=== PATIENT | female | born 1980 | race Caucasian/White ===

== ENCOUNTER → 2020-12-15 13:20 | Outpatient (BNVA) | payer OTHER, SELFPAY | PROVIDERS: PCP Internal Medicine; Visit Provider Urology ==

== ENCOUNTER 2021-03-01 11:47 | Emergency (ER) | payer OTHER, SELFPAY ==
--- NOTE | ~2021-03-01 | CT_ITS ---
EXAMINATION: CT ABDOMEN AND PELVIS WITHOUT CONTRAST CLINICAL INFORMATION: Bilateral flank pain. COMPARISON: CT abdomen pelvis 03/18/20192018. Renal ultrasound 12/18/2018 TECHNIQUE: Multidetector volumetric imaging was performed from the superior aspect of the liver through the pubic symphysis. Sagittal and coronal reformatted images were obtained on the technologist's workstation. This CT examination was performed using dose optimization techniques as appropriate, variously including the following: *Automated exposure control *Adjustment of mA and/or kV according to patient size (this includes techniques or standardized protocols for targeted exams where dose is matched to indication/reason for exam; i.e. extremities or head) *Use of iterative reconstruction technique DLP: 324 mGy-cm FINDINGS: LUNG BASES: The visualized lung bases are unremarkable. LIVER, GALLBLADDER, AND BILIARY TREE: The liver is normal in size, shape, and attenuation. No focal hepatic lesion or biliary ductal dilatation is present. The gallbladder is unremarkable with no evidence of radiopaque gallstones, gallbladder wall thickening, or obvious pericholecystic inflammatory changes. PANCREAS: Unremarkable. SPLEEN: Unremarkable. ADRENAL GLANDS: Unremarkable. KIDNEYS AND URETERS: Nonobstructive 1 to 2 mm size stone in the upper pole of left kidney. There is no calculus in the right kidney. There is no ureteral stone. No hydronephrosis. There are small bilateral calcified phleboliths in the pelvis. BLADDER: Unremarkable. GASTROINTESTINAL TRACT: The small and large bowel are unremarkable. The appendix is normal. ABDOMINAL WALL: No significant hernia is appreciated. LYMPH NODES: Normal. VASCULAR: Unremarkable. PELVIC VISCERA: Unremarkable. OSSEOUS STRUCTURES: Unremarkable. CT/CT abdomen pelvis wo con IMPRESSION: 1 to 2 mm size stone in the left kidney. No stone in the right kidney. No hydronephrosis. No ureteral calculi. Fleischner guidelines were followed.
[2021-03-01 12:50] VITALS: BP 120/79; PULSE 78; RESP 18; TEMP 36.8; O2SAT 98; BMI 21.7
[2021-03-01 13:14] LABS: Appearance Urine HAZY; Color Urine YELLOW; Glucose Urine UA NEG (NEG); Leukocyte Esterase Urine NEG (NEG); Nitrite Urine POS (NEG); PH 6.5 (5.0-8.0); UACC Culture Trigger YES; UPreg QC Valid YES; Urine Blood NEG (NEG); Urine Ketones NEG (NEG); Urine Pregnancy NEGATIVE (NEGATIVE); Urine Protein NEG (NEG-TRACE)
[2021-03-01 13:22] LABS: Bacteria Urine 4+ /LPF; Mucus Urine 1+ /LPF; RBC Urine 0 /HPF (0); Squamous Epithelial Cell Urine 1+ /LPF
[2021-03-01 13:55] LABS: MANUAL DIFF FLAG NO
[2021-03-01 13:57] LABS: Basophils Percent Auto 0.4 % (0-2); Eosinophils Absolute Auto 0.1 X10*3/uL (0.0-0.4); Eosinophils Percent Auto 1.2 % (0-4); Hematocrit 40.8 % (37.0-47.0); Hemoglobin 13.8 g/dl (12.0-16.0); Imm Gran Abs Auto 0.01 X10*3/uL (0.00-0.03); Imm Gran Pct Auto 0.1 % (0.0-0.4); Lymphocytes Absolute Auto 1.6 X10*3/uL (1.2-4.9); Lymphocytes Percent Auto 24.4 % (20-40); Mean Corpuscular HGB Conc 33.8 g/dl (31.0-35.0); Mean Corpuscular Hemoglobin 32.2 pg (27.0-33.0); Mean Corpuscular Volume 95.3 fL (80.0-98.0); Mean Platelet Volume 9.8 fL (9.4-12.3); Monocytes Absolute Auto 0.4 X10*3/uL (0.1-1.2); Monocytes Percent Auto 5.2 % (2-11); Neutrophils Absolute Auto 4.6 x10*3/uL (2.0-8.3); Neutrophils Percent Auto 68.7 % (45-73); Platelet Count 237 X10*3/uL (160-400); Red Blood Count 4.28 X10*6/uL (4.20-5.50); Red Cell Distribution Width 11.8 % (11.0-16.0); White Blood Count 6.7 X10*3/uL (4.8-10.8)
[2021-03-01 14:18] LABS: Alanine Aminotransferase 19 U/L (0-31); Albumin Level 4.3 g/dL (3.5-5.0); Alkaline Phosphatase 42 U/L (39-117); Anion Gap 9 (12-20); Aspartate Amino Transferase 19 U/L (5-31); Bilirubin Total 0.2 mg/dL (0.0-1.0); Blood Urea Nitrogen 13 mg/dL (9-16); Calcium 9.3 mg/dL (8.4-10.2); Carbon Dioxide 29 mmol/L (22-29); Chloride 105 mmol/L (96-108); Creatinine Clr Calc Pharmacy 71.4; Estimated Glomerular Filt Rate > 60; Glucose Random 105 mg/dL (60-115); Potassium 4.3 mmol/L (3.3-5.1); Sodium 139 mmol/L (135-145)
--- NOTE | 2021-03-01 18:59 | ED.FEMALEGU ---
HPI - Female Genitourinary General Chief complaint: Urogenital-Female Stated complaint: pain with urination,hematuria Time Seen by Provider: 03/01/21 18:34 Source: patient Mode of arrival: ambulatory Limitations: no limitations History of Present Illness HPI Narrative: 40-year-old female who presents emergency department for evaluation of bilateral chest pain x1 week. The patient states that she has an intermittent pain in her lower anterior rib area bilaterally for 1 week. She states that the pain is a soreness which is 8/10 at its worst. She did have some bloody urine and was concerned that maybe she had a kidney stone. She states that she had a kidney stone in the past which required laser surgery (2017) and she believes that her pain was similar to her kidney stone pain in the past. She denied fever, chills, shortness of breath, dyspnea exertion, or cough. She denied frequency, urgency or dysuria. She states that she contacted her urologist, Dr. Biggs who advised her to go to the emergency department for evaluation of possible CT scan of the abdomen pelvis. Related Data Allergies Allergy/AdvReac Type Severity Reaction Status Date / Time amoxicillin [AMOXICILLIN] Allergy Unknown HIVES Verified 12/15/20 13:32 penicillin V Allergy Unknown hives Verified 12/15/20 13:32 Penicillins [PENICILLINS] Allergy Unknown HIVES Verified 12/15/20 13:32 sulfamethoxazole Allergy Unknown NAUSEA & Verified 12/15/20 13:32 [From BACTRIM] VOMITING trimethoprim [From BACTRIM] Allergy Unknown NAUSEA & Verified 12/15/20 13:32 VOMITING Sulfa (Sulfonamide AdvReac Unknown vomiting Verified 12/15/20 13:32 Antibiotics) Review of Systems Review of Systems: Yes all other systems are reviewed and are negative [facility] Past Medical History [facility] Narrative: Past medical history: Kidney stones requiring laser surgery 2017. Past surgical history: None. Social history: Patient denies tobacco use but she does vape nicotine products. She does drink alcohol and states she drank a significant amount of alcohol over the holiday. She denies drug use. Medical History (Updated 03/01/21 @ 20:48 by Diogenes House MD) Kidney stones Social History Social History Advance Directives: No Advance Directives Information Provided: Yes Patient : No Physical Exam Vital Signs: Vital Signs: Last Vital Signs Temp 98 F 03/01/21 19:09 Pulse 76 03/01/21 19:09 Resp 16 03/01/21 19:09 BP 122/76 03/01/21 19:09 Pulse Ox 99 03/01/21 19:09 BMI result Body Mass Index 21.7 Const: General: cooperative and no acute distress Orientation/consciousness: oriented to person and oriented to place Limitations: no limitations HENMT: Head: Yes normal to inspection, Yes normocephalic and Yes atraumatic Ears: external ears normal General nose exam: Normal external nose present Face and sinus: Yes normal facial exam Mouth: Normal oral and palatal mucosa present Throat: Yes posterior oropharynx normal Eyes: General: appearance normal, both eyes and all related structures Pupils: Equal, round and reactive pupils present Neck: Neck: Yes normal visual inspection, Yes no lymphadenopathy, Yes trachea midline and Yes supple Chest: Chest palpation & inspection: normal inspection of the chest and normal palpation of entire chest wall Resp: Effort & Inspection: normal respiratory effort and able to speak in complete sentences Auscultation: clear to auscultation bilaterally Cardio: Rate: regular rate Rhythm: regular rhythm Heart sounds: S1 normal heart sound present, S2 normal heart sound present and no murmurs GI: Inspection: Yes normal to inspection Palpation (GI): Soft to palpation, nontender and no guarding Auscultation: normal bowel sounds : General: Yes no CVA tenderness Back/Spine/Pelvis: Back: no CVA tenderness Skin: General skin exam: no rashes or lesions noted Neuro: General: oriented to person and oriented to place Cranial nerves: Yes CN's II-XII intact bilaterally and Yes Equal, round and reactive pupils present Cognition (Neuro): normal cognition Motor exam (neuro): 5/5 motor strength present throughout Extrem: General: Yes normal to inspection Psych: Appearance: grossly normal Speech and movement: Normal speech and movement present Affect: normal affect Attitude: cooperative Thought process: Normal thought process present Thought content: Normal thought content present Course Course Course Narrative: 40-year-old female who presents emergency department for evaluation of bilateral lower anterior chest pain x1 week with hematuria. Patient states that the pain is similar to her kidney stone pain in the past. Vital signs were normal. Physical examination was unremarkable. Laboratory evaluation included CBC, CMP which were unremarkable. Urine test was negative. Urinalysis revealed positive nitrates. Microscopic revealed 0 RBCs and 4 WBCs, 1+ squamous epithelial cells, 1+ bacteria. At this time I do not have a clear etiology for the patient's symptoms. I will get a CT scan of the patient's abdomen/pelvis without contrast to evaluate for kidney stones. 2043: CT scan of the patient's abdomen and pelvis without IV contrast revealed the following:?Nonobstructive 1 to 2 mm size stone in the upper pole of left kidney. There is no calculus in the right kidney. There is no ureteral stone. No hydronephrosis. There are small bilateral calcified phleboliths in the pelvis. This does not explain the patient's pain. I did discuss this with the patient. The patient was advised to take Tylenol and ibuprofen and return if her symptoms get worse or she develops any new symptoms that are concerning to her. MDM - Female Genitourinary Lab Data Result diagrams: 03/01/21 13:50 03/01/21 13:50 Labs: Lab Results 03/01/21 03/01/21 03/01/21 Range/Units 12:59 12:59 13:50 WBC 6.7 (4.8-10.8) X10*3/uL RBC 4.28 (4.20-5.50) X10*6/uL Hgb 13.8 (12.0-16.0) g/dl Hct 40.8 (37.0-47.0) % MCV 95.3 (80.0-98.0) fL MCH 32.2 (27.0-33.0) pg MCHC 33.8 (31.0-35.0) g/dl RDW 11.8 (11.0-16.0) % Plt Count 237 (160-400) X10*3/uL MPV 9.8 (9.4-12.3) fL Immature Gran % (Auto) 0.1 (0.0-0.4) % Neut % (Auto) 68.7 (45-73) % Lymph % (Auto) 24.4 (20-40) % [place] % (Auto) 5.2 (2-11) % Eos % (Auto) 1.2 (0-4) % Baso % (Auto) 0.4 (0-2) % Lymph # (Auto) 1.6 (1.2-4.9) X10*3/uL [place] # (Auto) 0.4 (0.1-1.2) X10*3/uL Eos # (Auto) 0.1 (0.0-0.4) X10*3/uL Baso # (Auto) 0.0 (0.0-0.2) X10*3/uL Abs Immat Gran (auto) 0.01 (0.00-0.03) X10*3/uL Absolute Neuts (auto) 4.6 (2.0-8.3) x10*3/uL Absolute Nucleated RBC 0.000 (0.0-0.012) X10*3/uL Nucleated RBC % (auto) 0.0 (0.0-0.2) /100WBC Sodium (135-145) mmol/L Potassium (3.3-5.1) mmol/L Chloride (96-108) mmol/L Carbon Dioxide (22-29) mmol/L Anion Gap (12-20) BUN (9-16) mg/dL Creatinine (0.5-1.4) mg/dL Estim Creat Clear Calc Estimated GFR Random Glucose (60-115) mg/dL Calcium (8.4-10.2) mg/dL Total Bilirubin (0.0-1.0) mg/dL AST (5-31) U/L ALT (0-31) U/L Alkaline Phosphatase (39-117) U/L Total Protein (6.5-8.0) g/dL Albumin (3.5-5.0) g/dL Urine Color YELLOW Urine Appearance HAZY Urine pH 6.5 (5.0-8.0) Ur Specific Diana 1.020 (1.005-1.025) Urine Protein NEG (NEG-TRACE) MG/DL Urine Glucose (UA) NEG (NEG) MG/DL Urine Ketones NEG (NEG) MG/DL Urine Blood NEG (NEG) Urine Nitrite POS H (NEG) Ur Leukocyte Esterase NEG (NEG) Urine RBC 0 (0) /HPF Urine WBC 1-4 (0-4) /HPF Ur Squamous Epith Cells 1+ /LPF Urine Bacteria 4+ /LPF Urine Mucus 1+ /LPF Urine Test NEGATIVE (NEGATIVE) 03/01/21 Range/Units 13:50 WBC (4.8-10.8) X10*3/uL RBC (4.20-5.50) X10*6/uL Hgb (12.0-16.0) g/dl Hct (37.0-47.0) % MCV (80.0-98.0) fL MCH (27.0-33.0) pg MCHC (31.0-35.0) g/dl RDW (11.0-16.0) % Plt Count (160-400) X10*3/uL MPV (9.4-12.3) fL Immature Gran % (Auto) (0.0-0.4) % Neut % (Auto) (45-73) % Lymph % (Auto) (20-40) % [place] % (Auto) (2-11) % Eos % (Auto) (0-4) % Baso % (Auto) (0-2) % Lymph # (Auto) (1.2-4.9) X10*3/uL [place] # (Auto) (0.1-1.2) X10*3/uL Eos # (Auto) (0.0-0.4) X10*3/uL Baso # (Auto) (0.0-0.2) X10*3/uL Abs Immat Gran (auto) (0.00-0.03) X10*3/uL Absolute Neuts (auto) (2.0-8.3) x10*3/uL Absolute Nucleated RBC (0.0-0.012) X10*3/uL Nucleated RBC % (auto) (0.0-0.2) /100WBC Sodium 139 (135-145) mmol/L Potassium 4.3 (3.3-5.1) mmol/L Chloride 105 (96-108) mmol/L Carbon Dioxide 29 (22-29) mmol/L Anion Gap 9 L (12-20) BUN 13 (9-16) mg/dL Creatinine 0.79 (0.5-1.4) mg/dL Estim Creat Clear Calc 71.4 Estimated GFR > 60 Random Glucose 105 (60-115) mg/dL Calcium 9.3 (8.4-10.2) mg/dL Total Bilirubin 0.2 (0.0-1.0) mg/dL AST 19 (5-31) U/L ALT 19 (0-31) U/L Alkaline Phosphatase 42 (39-117) U/L Total Protein 7.0 (6.5-8.0) g/dL Albumin 4.3 (3.5-5.0) g/dL Urine Color Urine Appearance Urine pH (5.0-8.0) Ur Specific Diana (1.005-1.025) Urine Protein (NEG-TRACE) MG/DL Urine Glucose (UA) (NEG) MG/DL Urine Ketones (NEG) MG/DL Urine Blood (NEG) Urine Nitrite (NEG) Ur Leukocyte Esterase (NEG) Urine RBC (0) /HPF Urine WBC (0-4) /HPF Ur Squamous Epith Cells /LPF Urine Bacteria /LPF Urine Mucus /LPF Urine Test (NEGATIVE) Discharge Plan Discharge Clinical Impression: Kidney stone on right side Chest pain Qualifiers: Chest pain type: unspecified Qualified Code(s): R07.9 - Chest pain, unspecified Patient Disposition: Home, Self-Care Instructions: Chest Pain (ED) Additional Instructions: Your blood work today was normal. Your urinalysis was unremarkable. The CT scan of your abdomen pelvis without IV contrast did not reveal a clear cause for your pain. The radiologist saw a 1-2 mm stone in the upper pole of your left kidney and no stones in your right kidney. The stones are in your kidney and are not causing your pain. Also there is no swelling of your kidneys which is also reassuring. Take ibuprofen 200 mg pills, 3 pills every 6 hours as needed for pain. Take Tylenol (acetaminophen) 500 mg pills, 2 pills every 4 to 6 hours as needed for pain. Follow-up with your doctor in 2 days. Please return to the emergency department if your symptoms get worse or if you develop any symptoms that are concerning to you.
[2021-03-01 19:09] VITALS: BP 122/76; PULSE 76; RESP 16; TEMP 36.6; O2SAT 99
== END 2021-03-01 20:59 | disposition home or self-care (01) ==
PROVIDERS: Emergency Provider Emergency Medicine Emergency Medical Services; PCP Internal Medicine
DX: R07.9 Chest pain, unspecified (principal); N20.0 Calculus of kidney; Z87.442 Personal history of urinary calculi
CPT/HCPCS: 36415; 74176; 80053; 81001; 81025; 85025; 87086; 87088; 87186; 99283; 99284

== ENCOUNTER → 2021-05-18 10:52 | Outpatient (BNVA) | payer OTHER, SELFPAY | PROVIDERS: PCP Internal Medicine; Visit Provider Advanced Practice Midwife | DX: Z12.39 Encounter for other screening for malignant neoplasm of breast (principal); F32.81 Premenstrual dysphoric disorder; N92.0 Excessive and frequent menstruation with regular cycle | CPT/HCPCS: 99202 ==

== ENCOUNTER 2021-05-31 10:01 | Outpatient (REF) | payer OTHER, SELFPAY ==
--- NOTE | ~2021-05-31 | US_ITS ---
EXAMINATION: US PELVIS CLINICAL INFORMATION: Accession and frequent menstruation . COMPARISON: None TECHNIQUE: Ultrasound of the pelvis is performed using both transabdominal and transvaginal transducers along with Doppler. Transvaginal imaging is performed due to inadequate visualization transabdominally. FINDINGS: Uterus: The uterus is anteverted and measures 10.3 x 4.8 x 6.6 cm The double wall endometrium measures 0.74 mm in thickness.. The uterus is smooth in contour and has normal myometrial echogenicity. There is a solitary hypoechoic to isoechoic lesion in the posterior body of uterus suggestive of fibroid. It measures 4.0 x 1.7 x 2.8 cm with increased vascularity. No additional fibroids seen. The posterior myometrium is slightly heterogeneous. There are small nabothian cysts in cervix. Adnexa: Both ovaries are visualized. There is normal color flow to the adnexa. There is no ovarian torsion. There is no pelvic ascites or fluid collection. Right ovary measures 3.7 x 2.5 x 2.7 cm and volume 20.9 mL. There is anechoic simple cyst measuring 2.3 x 2.0 x 1.9 cm. Previously right ovary measured 2.3 x 2.0 x 1.9 cm. Left ovary measures 2.8 x 1.6 x 2.4 cm and volume 5.4 mL. There are small multiple follicles seen. Previously left ovary measured 2.9 x 1.5 x 2.0 cm and volume 4.6 mL. US/US pelvic and transvaginal IMPRESSION: Slightly larger uterine fibroid compared to 2 fibroids previously. It is hypervascular and measures 4.0 cm. Heterogeneous posterior myometrium. Small nabothian cysts in the cervix. Simple cysts right ovary and multiple follicles left ovary.
[2021-05-31 11:42] LABS: Hematocrit 39.7 % (37.0-47.0); Hemoglobin 13.2 g/dl (12.0-16.0); Mean Corpuscular HGB Conc 33.2 g/dl (31.0-35.0); Mean Corpuscular Hemoglobin 31.7 pg (27.0-33.0); Mean Corpuscular Volume 95.2 fL (80.0-98.0); Mean Platelet Volume 10.2 fL (9.4-12.3); Platelet Count 246 X10*3/uL (160-400); Red Blood Count 4.17 X10*6/uL (4.20-5.50); White Blood Count 6.6 X10*3/uL (4.8-10.8)
[2021-05-31 12:21] LABS: Thyroid Stimulating Hormone 0.66 uIU/mL (0.32-4.0)
== END 2021-05-31 10:02 | disposition home or self-care (01) ==
LOC: HO.HMGCX 10:01
PROVIDERS: Visit Provider Advanced Practice Midwife
DX: N92.0 Excessive and frequent menstruation with regular cycle (principal); N92.1 Excessive and frequent menstruation with irregular cycle
CPT/HCPCS: 36415; 76830; 76856; 84443; 85027

== ENCOUNTER 2021-06-11 09:19 | Outpatient (REF) | payer OTHER, SELFPAY ==
--- NOTE | ~2021-06-11 | MM_ITS ---
EXAMINATION: MM SCREENING DIGITAL BREAST TOMOSYNTHESIS, BILATERAL CLINICAL INFORMATION: Screening. Asymptomatic. The lifetime risk of breast cancer based on the Tyrer-Cuzick Model is 13%. COMPARISON: Mammography: 06/10/2015 (baseline). Targeted right breast ultrasound 06/10/2015. TECHNIQUE: Digital breast tomosynthesis is performed in both the craniocaudal and mediolateral oblique views along with computer-aided detection (CAD). Synthesized 2D images are generated from the tomosynthesis. FINDINGS: The breasts are heterogeneously dense, which may obscure small masses (ACR BI-RADS breast composition Category c). There are no significant masses, abnormal calcifications, or other abnormalities. Parenchymal pattern is similar to prior diagnostic baseline exam. The axilla and skin contours are unremarkable. MM/MM tomosynthesis screening BI IMPRESSION: No mammographic evidence of malignancy. ASSESSMENT: BI-RADS 1: Negative RECOMMENDATION: Routine annual mammography screening. This patient's information was entered into a reminder system with a target due date for their next mammogram.
== END 2021-06-11 09:20 | disposition home or self-care (01) ==
LOC: HO.MAMMO 09:19
PROVIDERS: Visit Provider Advanced Practice Midwife
DX: Z12.31 Encounter for screening mammogram for malignant neoplasm of breast (principal)
CPT/HCPCS: 77063; 77067

== ENCOUNTER 2021-06-23 10:05 | Outpatient (REF) | payer OTHER, SELFPAY ==
[2021-06-23 18:30] LABS: CT PCR NOT DETECTED (Not Detect.); NG PCR NOT DETECTED (Not Detect.)
[2021-06-24 13:08] LABS: BV Int Neg Control Negative (Negative); BV Int Pos Control Positive (Positive)
[2021-06-25 14:45] LABS: HPV mRNA E6/E7 rflx Not Detected (Not Detected)
== END 2021-06-23 10:06 | disposition home or self-care (01) ==
LOC: HO.LAB 10:05
PROVIDERS: PCP Internal Medicine; Visit Provider Advanced Practice Midwife
DX: Z12.72 Encounter for screening for malignant neoplasm of vagina (principal); N93.9 Abnormal uterine and vaginal bleeding, unspecified; Z20.2 Contact with and (suspected) exposure to infections with a predominantly sexual mode of transmission
CPT/HCPCS: 58100; 81025; 87480; 87491; 87510; 87591; 87624; 87660; 88142; 88305

== ENCOUNTER 2021-07-07 10:21 | Outpatient (REF) | payer OTHER, SELFPAY ==
[2021-07-08 22:31] LABS: Follicle Stimulating Hormone 1.9 mIU/mL
== END 2021-07-07 10:22 | disposition home or self-care (01) ==
LOC: HO.HMGCLDS 10:21
PROVIDERS: Visit Provider Advanced Practice Midwife
DX: R23.2 Flushing (principal)
CPT/HCPCS: 36415; 83001

== ENCOUNTER 2021-07-13 10:42 | Outpatient (REF) | payer OTHER, SELFPAY ==
[2021-07-13 11:31] LABS: MANUAL DIFF FLAG NO
[2021-07-13 11:49] LABS: Basophils Percent Auto 0.6 % (0-2); Eosinophils Absolute Auto 0.1 X10*3/uL (0.0-0.4); Eosinophils Percent Auto 1.3 % (0-4); Hematocrit 38.9 % (37.0-47.0); Hemoglobin 13.4 g/dl (12.0-16.0); Imm Gran Abs Auto 0.03 X10*3/uL (0.00-0.03); Imm Gran Pct Auto 0.5 % (0.0-0.4); Lymphocytes Absolute Auto 1.9 X10*3/uL (1.2-4.9); Lymphocytes Percent Auto 29.6 % (20-40); Mean Corpuscular HGB Conc 34.4 g/dl (31.0-35.0); Mean Corpuscular Hemoglobin 32.3 pg (27.0-33.0); Mean Corpuscular Volume 93.7 fL (80.0-98.0); Mean Platelet Volume 10.1 fL (9.4-12.3); Monocytes Absolute Auto 0.9 X10*3/uL (0.1-1.2); Monocytes Percent Auto 14.7 % (2-11); Neutrophils Absolute Auto 3.4 x10*3/uL (2.0-8.3); Neutrophils Percent Auto 53.3 % (45-73); Platelet Count 328 X10*3/uL (160-400); Red Blood Count 4.15 X10*6/uL (4.20-5.50); Red Cell Distribution Width 12.3 % (11.0-16.0); White Blood Count 6.3 X10*3/uL (4.8-10.8)
[2021-07-13 12:34] LABS: TSH reflex Free T4 0.48 uIU/mL (0.32-4.0)
[2021-07-13 12:45] LABS: Alanine Aminotransferase 25 U/L (0-31); Albumin Level 4.5 g/dL (3.5-5.0); Alkaline Phosphatase 57 U/L (39-117); Anion Gap 14 (12-20); Aspartate Amino Transferase 24 U/L (5-31); Bilirubin Total 0.6 mg/dL (0.0-1.0); Blood Urea Nitrogen 14 mg/dL (9-16); Calcium 9.5 mg/dL (8.4-10.2); Carbon Dioxide 22 mmol/L (22-29); Chloride 106 mmol/L (96-108); Cholesterol 210 mg/dL; Estimated Glomerular Filt Rate > 60; Glucose Fasting 133 mg/dL (60-99); HDL Cholesterol 69 mg/dL; LDL Cholesterol Calculated 124 mg/dl; Potassium 3.7 mmol/L (3.3-5.1); Sodium 138 mmol/L (135-145); Total Protein 7.4 g/dL (6.5-8.0); Triglycerides 87 mg/dL
[2021-07-13 13:33] LABS: Appearance Urine HAZY; Color Urine BROWN; Glucose Urine UA NEG (NEG); Leukocyte Esterase Urine 1+ (NEG); Nitrite Urine POS (NEG); PH 6.5 (5.0-8.0); Specific Gravity - Urine 1.025 (1.005-1.025); UACC Culture Trigger YES; Urine Blood 3+ (NEG); Urine Ketones NEG (NEG); Urine Protein 2+ MG/DL (NEG-TRACE)
[2021-07-13 13:39] LABS: Squamous Epithelial Cell Urine 2+ /LPF
[2021-07-13 13:40] LABS: Bacteria Urine 2+ /LPF
== END 2021-07-13 10:43 | disposition home or self-care (01) ==
LOC: HO.LAB 10:42
PROVIDERS: Absent Provider Nurse Practitioner Family; PCP Nurse Practitioner Family; Visit Provider Advanced Practice Midwife
DX: Z00.00 Encounter for general adult medical examination without abnormal findings (principal); R61 Generalized hyperhidrosis
CPT/HCPCS: 36415; 80053; 80061; 81001; 84443; 85025; 87086; 87088; 87186; 99212

== ENCOUNTER 2021-10-20 11:03 | Outpatient (REF) | payer OTHER, SELFPAY ==
[2021-10-20 14:24] LABS: INTERNATIONAL NORM RATIO 0.9 (0.9-1.1); Prothrombin Time 9.7 SEC (10.0-13.1)
[2021-10-20 14:27] LABS: Partial Thromboplastin Time 26.9 SEC (26.0-36.4)
[2021-10-20 14:36] LABS: Alanine Aminotransferase 25 U/L (0-31); Albumin Level 4.4 g/dL (3.5-5.0); Alkaline Phosphatase 49 U/L (39-117); Anion Gap 13 (12-20); Aspartate Amino Transferase 26 U/L (5-31); Bilirubin Total 0.6 mg/dL (0.0-1.0); Blood Urea Nitrogen 18 mg/dL (9-16); Calcium 9.4 mg/dL (8.4-10.2); Carbon Dioxide 25 mmol/L (22-29); Chloride 102 mmol/L (96-108); Estimated Glomerular Filt Rate > 60; Glucose Fasting 102 mg/dL (60-99); Potassium 4.2 mmol/L (3.3-5.1); Sodium 136 mmol/L (135-145); Total Protein 7.2 g/dL (6.5-8.0)
[2021-10-21 17:51] LABS: Follicle Stimulating Hormone 1.6 mIU/mL
[2021-10-28 18:23] LABS: Estrogen 794.4 pg/mL
== END 2021-10-20 11:04 | disposition home or self-care (01) ==
LOC: HO.HMGCLDS 11:03
PROVIDERS: Absent Provider Nurse Practitioner Family; PCP Nurse Practitioner Family; Visit Provider Internal Medicine
DX: R61 Generalized hyperhidrosis (principal); R23.8 Other skin changes; R73.01 Impaired fasting glucose
CPT/HCPCS: 36415; 80053; 82672; 83001; 85610; 85730

== ENCOUNTER 2021-11-23 11:47 | Outpatient (REF) | payer OTHER, SELFPAY ==
--- NOTE | ~2021-11-23 | US_ITS ---
EXAMINATION: US RETROPERITONEAL LIMITED (RENAL ONLY) CLINICAL INFORMATION: Calculus of kidney. COMPARISON: CT abdomen and pelvis without contrast 03/01/2021. Ultrasound retroperitoneal limited (renal only) 12/18/2018 and 06/17/2018. TECHNIQUE: Real-time imaging of the kidneys. FINDINGS: RIGHT KIDNEY: 12.9 x 3.7 x 5.5 cm (SAG x AP x TRV). The kidney is normal in size, contour, and echogenicity. Renal cortical thickness is normal. No renal calculi or hydronephrosis. There is a hyperechoic structure at the lower pole measuring 0.5 cm, likely an angiomyolipoma. LEFT KIDNEY: 11.1 x 5.4 x 5.3 cm (SAG x AP x TRV). The kidney is normal in size, contour, and echogenicity. Renal cortical thickness is normal. No calculi or focal parenchymal lesions. No hydronephrosis. US/US renal BI IMPRESSION: No renal calculi. Small hyperechoic structure of the right renal lower pole, consistent with an angiomyolipoma..
--- NOTE | ~2021-11-23 | XR_ITS ---
EXAMINATION: XR CHEST, 2 VIEWS CLINICAL INFORMATION: Generalized hyperhidrosis. COMPARISON: None. TECHNIQUE: PA and lateral views of the chest were obtained. FINDINGS: Lungs are clear. No consolidation, pneumothorax, or pleural effusion. Cardiac and mediastinal contours are normal. Pulmonary vasculature is unremarkable. Trachea is midline. Osseous structures are unremarkable. XR/XR chest 2V IMPRESSION: Normal chest radiographs.
[2021-11-23 13:59] LABS: MANUAL DIFF FLAG NO
[2021-11-23 14:03] LABS: Basophils Percent Auto 0.5 % (0-2); Eosinophils Absolute Auto 0.1 X10*3/uL (0.0-0.4); Eosinophils Percent Auto 0.9 % (0-4); Hematocrit 38.9 % (37.0-47.0); Hemoglobin 13.2 g/dl (12.0-16.0); Imm Gran Abs Auto 0.03 X10*3/uL (0.00-0.03); Imm Gran Pct Auto 0.5 % (0.0-0.4); Lymphocytes Absolute Auto 1.2 X10*3/uL (1.2-4.9); Lymphocytes Percent Auto 18.7 % (20-40); Mean Corpuscular HGB Conc 33.9 g/dl (31.0-35.0); Mean Corpuscular Hemoglobin 32.5 pg (27.0-33.0); Mean Corpuscular Volume 95.8 fL (80.0-98.0); Mean Platelet Volume 10.2 fL (9.4-12.3); Monocytes Absolute Auto 0.4 X10*3/uL (0.1-1.2); Monocytes Percent Auto 5.6 % (2-11); Neutrophils Absolute Auto 4.8 x10*3/uL (2.0-8.3); Neutrophils Percent Auto 73.8 % (45-73); Platelet Count 266 X10*3/uL (160-400); Red Blood Count 4.06 X10*6/uL (4.20-5.50); Red Cell Distribution Width 12.2 % (11.0-16.0); White Blood Count 6.5 X10*3/uL (4.8-10.8)
[2021-11-23 14:23] LABS: Appearance Urine Clear; Color Urine Yellow; Glucose Urine UA Negative (Negative); Leukocyte Esterase Urine Negative (Negative); Nitrite Urine Negative (Negative); PH 6.5 (5.0-9.0); Specific Gravity - Urine 1.015 (1.005-1.025); Urine Blood Negative (Negative); Urine Ketones Negative (Negative); Urine Protein Negative (Neg-Trace)
[2021-11-23 14:51] LABS: Alanine Aminotransferase 73 U/L (0-31); Albumin Level 4.7 g/dL (3.5-5.0); Alkaline Phosphatase 51 U/L (39-117); Anion Gap 17 (12-20); Aspartate Amino Transferase 50 U/L (5-31); Bilirubin Total 0.5 mg/dL (0.0-1.0); Blood Urea Nitrogen 12 mg/dL (9-16); Calcium 9.3 mg/dL (8.4-10.2); Carbon Dioxide 22 mmol/L (22-29); Chloride 103 mmol/L (96-108); Cholesterol 224 mg/dL; Estimated Glomerular Filt Rate > 60; Glucose Fasting 90 mg/dL (60-99); HDL Cholesterol 83 mg/dL; Iron 180 mcg/dL (30-160); LDL Cholesterol Calculated 107 mg/dl; Percent Iron Saturation 42 % (15-50); Potassium 3.9 mmol/L (3.3-5.1); Sodium 138 mmol/L (135-145); Total Iron Binding Capacity 427 mcg/dL (228-428); Total Protein 7.7 g/dL (6.5-8.0); Triglycerides 172 mg/dL; Unsaturated Iron Binding 247 ug/dL
[2021-11-23 14:53] LABS: Erythrocyte Sedimentation Rate 2 MM/HR (0-20)
[2021-11-23 15:04] LABS: Ferritin 18 ng/mL (10-250); TSH reflex Free T4 0.43 uIU/mL (0.32-4.0)
[2021-11-23 15:05] LABS: Amphetamine Screen Urine Not Detected (Not Detect); Barbiturates, Urine Not Detected (Not Detect); Benzodiazepines Screen Urine Not Detected (Not Detect); Cannabinoid Screen Urine POSITIVE (Not Detect); Cocaine Screen Urine Not Detected (Not Detect); Fentanyl, urine Not Detected (Not Detect); Opiate Screen Urine Not Detected (Not Detect); Phencyclidine Screen Urine Not Detected (Not Detect)
[2021-11-23 15:29] LABS: Cortisol Random 13.1 ug/dL
[2021-11-23 15:41] LABS: Folate > 20.0 ng/mL (> or = 4.0); Vitamin B12 629 pg/mL (200-900)
[2021-11-24 07:15] LABS: HIV AB/AG Nonreactive (Nonreactive); HIV Num 1 0.04 S/CO (0.00-0.99)
[2021-11-25 23:12] LABS: A. Phagocytphilium DNA,RT-PCR NOT DETECTED (NOT DETECTED); Babesia Microti DNA, RT-PCR NOT DETECTED (NOT DETECTED); Borrelia Miyamotoi,DNA RT-PCR NOT DETECTED (NOT DETECTED); E.Chaffeensis DNA RT-PCR NOT DETECTED (NOT DETECTED); Lyme(Borrelia ssp)DNA RT-PCR NOT DETECTED (NOT DETECTED)
[2021-11-26 01:06] LABS: TS Negative Control Passed; TS Panel A 0; TS Panel B 0; TS Positive Control Passed; TSpotTB Negative (Negative)
[2021-11-26 14:53] LABS: Source-Tick borne disease BLOOD
== END 2021-11-23 11:48 | disposition home or self-care (01) ==
LOC: HO.HMGCX 11:47
PROVIDERS: PCP Nurse Practitioner Family; Visit Provider Urology
DX: Z11.1 Encounter for screening for respiratory tuberculosis (principal); N20.0 Calculus of kidney; R61 Generalized hyperhidrosis
CPT/HCPCS: 71046; 76775; 80053; 80061; 80307; 81003; 82533; 82607; 82728; 82746; 83540; 84443; 85025; 85652; 86481; 87040; 87389; 87798; 87801

== ENCOUNTER → 2021-12-22 12:04 | Outpatient (BNVA) | payer OTHER, SELFPAY | PROVIDERS: PCP Nurse Practitioner Family; Visit Provider Obstetrics & Gynecology | DX: N64.3 Galactorrhea not associated with childbirth (principal) | CPT/HCPCS: 99212 ==

== ENCOUNTER 2022-01-03 09:04 | Outpatient (REF) | payer OTHER, SELFPAY ==
--- NOTE | ~2022-01-03 | US_ITS ---
EXAMINATION: US ABDOMEN COMPLETE CLINICAL INFORMATION: Abnormal levels of other serum enzymes. COMPARISON: Renal ultrasound 11/23/2021 and 12/18/2018. CT abdomen and pelvis 03/01/2021. TECHNIQUE: Real-time imaging of the abdominal viscera. FINDINGS: PANCREAS: Normal. ABDOMINAL AORTA: The proximal, mid, and distal segments are normal in caliber. INFERIOR VENA CAVA: Visualized portions are normal. LIVER: Normal. The liver is normal in size. The liver contour is normal. Parenchymal echogenicity is normal. No focal hepatic lesion. There is no intrahepatic biliary duct dilatation seen. GALLBLADDER: Gallbladder wall thickness is 0.18. The gallbladder is physiologically distended without evidence of stones, sludge, polyps, wall thickening or pericholecystic fluid. COMMON BILE DUCT: Normal in caliber measuring 0.4 cm in diameter. RIGHT KIDNEY: There is a small, hyperechoic lesion in the lower pole of the right kidney measuring 0.31 x 0.40 x 0.41 cm suggestive of an angiomyolipoma. It measured a similar size, 0.5 cm, on the previous renal ultrasound exam of 11/23/2021. No hydronephrosis or renal calculi. The kidney measures 12.4 cm in maximum dimension. LEFT KIDNEY: Normal. No hydronephrosis. No renal calculi or focal parenchymal lesions. The kidney measures 10.7 cm in maximum dimension. SPLEEN: Normal. The spleen measures 9.1 cm in maximum dimension. FREE FLUID: None. US/US abdomen complete IMPRESSION: 1. Small angiomyolipoma lower pole right kidney. 2. The rest of the abdominal ultrasound is unremarkable.
[2022-01-03 12:25] LABS: HCG Quantitative < 2 mIU/mL; Thyroid Stimulating Hormone 0.72 uIU/mL (0.32-4.0)
[2022-01-04 08:52] LABS: Follicle Stimulating Hormone 5.5 mIU/mL; Lutenizing Hormone 8.2 mIU/mL; Prolactin 13.1 ng/mL
== END 2022-01-03 09:05 | disposition home or self-care (01) ==
LOC: HO.HMGCX 09:04
PROVIDERS: Obstetrics & Gynecology; PCP Nurse Practitioner Family; Visit Provider Nurse Practitioner Family
DX: R74.8 Abnormal levels of other serum enzymes (principal); N64.3 Galactorrhea not associated with childbirth
CPT/HCPCS: 36415; 76700; 83001; 83002; 84146; 84443; 84702

== ENCOUNTER 2022-01-03 09:06 | Outpatient (REF) | payer OTHER, SELFPAY | END 2022-01-03 09:07 | disposition home or self-care (01) | LOC: HO.HMGCX 09:06 | PROVIDERS: PCP Nurse Practitioner Family; Visit Provider Nurse Practitioner Family | DX: Z13.89 Encounter for screening for other disorder (principal) ==

== ENCOUNTER 2022-01-04 15:20 | Outpatient (REF) | payer OTHER, SELFPAY ==
[2022-01-04 16:44] LABS: Appearance Urine Clear; Color Urine Yellow; Glucose Urine UA Negative (Negative); Leukocyte Esterase Urine Negative (Negative); Nitrite Urine Negative (Negative); Urine Blood Negative (Negative); Urine Ketones Negative (Negative); Urine Protein Negative (Neg-Trace)
== END 2022-01-04 15:21 | disposition home or self-care (01) ==
LOC: HO.HMGCLDS 15:20
PROVIDERS: PCP Nurse Practitioner Family; Visit Provider Nurse Practitioner Family
DX: R30.0 Dysuria (principal)
CPT/HCPCS: 81003; 87086

== ENCOUNTER 2022-05-10 14:41 | Outpatient (REF) | payer OTHER, SELFPAY ==
[2022-05-11 04:15] LABS: CT PCR NOT DETECTED (Not Detect.); NG PCR NOT DETECTED (Not Detect.)
[2022-05-11 10:56] LABS: BV Int Neg Control Negative (Negative); BV Int Pos Control Positive (Positive)
== END 2022-05-10 14:42 | disposition home or self-care (01) ==
LOC: HO.LAB 14:41
PROVIDERS: PCP Nurse Practitioner Family; Visit Provider Advanced Practice Midwife
DX: R10.2 Pelvic and perineal pain (principal); Z32.02 Encounter for pregnancy test, result negative
CPT/HCPCS: 0353U; 81003; 81025; 87480; 87510; 87660; 99212

== ENCOUNTER 2022-05-10 15:33 | Outpatient (REF) | payer OTHER, SELFPAY | END 2022-05-10 15:34 | disposition home or self-care (01) | LOC: HO.LNP 15:33 | PROVIDERS: Visit Provider Advanced Practice Midwife | DX: Z13.89 Encounter for screening for other disorder (principal) ==

== ENCOUNTER 2022-05-16 12:53 | Outpatient (REF) | payer OTHER, SELFPAY ==
--- NOTE | ~2022-05-16 | US_ITS ---
EXAM: Pelvic Ultrasound CLINICAL INDICATION: Pelvic pain COMPARISON: Pelvic ultrasound 05/31/2021 TECHNIQUE: The pelvis was evaluated using transabdominal and transvaginal imaging. FINDINGS: The uterus measures 9.1 x 5.2 x 5.9 cm in longitudinal by AP by transverse dimension. Uterus demonstrates overall heterogeneous echotexture. Two discrete fibroids are visualized within the posterior uterine fundus, the largest measuring 3 cm. The endometrial stripe is not thickened and measures 0.8 cm. Nabothian cyst noted within the cervix. The left ovary measures approximately 2.7 x 2.5 x 2.9 cm and contains a 1.9 cm cyst, suspected corpus luteum. The right ovary measures approximately 2.1 x 1.5 x 2.3 cm and contains a multiseptated cyst which measures approximately 0.8 x 0.6 x 0.8 cm. Also within the right ovary is a 4 mm echogenic focus which is nonspecific. There is no free fluid in the pelvis. US/US pelvic and transvaginal IMPRESSION: 1. Normal thickness endometrial stripe. 2. Two discrete fibroids are visualized within the posterior uterine fundus, the largest measuring 3 cm. 3. 4 mm echogenic focus within the right ovary is nonspecific. Attention on follow-up imaging recommended. 4. 8mm multiseptated cyst of the right ovary, nonspecific.
== END 2022-05-16 12:54 | disposition home or self-care (01) ==
LOC: HO.HMGCX 12:53
PROVIDERS: PCP Nurse Practitioner Family; Visit Provider Advanced Practice Midwife
DX: R10.2 Pelvic and perineal pain (principal)
CPT/HCPCS: 76830; 76856

== ENCOUNTER → 2022-05-30 10:32 | Outpatient (BNVA) | payer OTHER, SELFPAY | PROVIDERS: PCP Nurse Practitioner Family; Visit Provider Advanced Practice Midwife | DX: R10.2 Pelvic and perineal pain (principal); N83.291 Other ovarian cyst, right side; Z87.442 Personal history of urinary calculi | CPT/HCPCS: 99212 ==

== ENCOUNTER 2022-06-01 12:44 | Outpatient (REF) | payer OTHER, SELFPAY ==
--- NOTE | ~2022-06-01 | US_ITS ---
EXAMINATION: US ABDOMEN COMPLETE CLINICAL INFORMATION: Abdominal pain. COMPARISON: Ultrasound abdomen complete 01/03/2022. Renal ultrasound 11/23/2021. CT abdomen and pelvis 03/01/2021. TECHNIQUE: Real-time imaging of the abdominal viscera. FINDINGS: PANCREAS: Normal. ABDOMINAL AORTA: The proximal, mid, and distal segments are normal in caliber. INFERIOR VENA CAVA: Visualized portions are normal. LIVER: Normal. The liver is normal in size. The liver contour is normal. Parenchymal echogenicity is normal. No focal hepatic lesion. There is no intrahepatic biliary duct dilatation seen. GALLBLADDER: Normal. The gallbladder is physiologically distended without evidence of stones, sludge, polyps, wall thickening or pericholecystic fluid. COMMON BILE DUCT: Normal in caliber measuring 0.3 cm in diameter. RIGHT KIDNEY: 5 x 6 mm echogenic lesion in the lower pole. This was seen on prior ultrasounds and may be minimally increased in size. No definite corresponding abnormality is appreciated on CT scan. No hydronephrosis or renal calculi. The kidney measures 12.4 cm in maximum dimension. LEFT KIDNEY: 4 mm stone in the lower pole. No hydronephrosis or focal parenchymal lesions. The kidney measures 10.5 cm in maximum dimension. SPLEEN: Normal. The spleen measures 9.6 cm in maximum dimension. FREE FLUID: None. US/US abdomen complete IMPRESSION: 6 x 5 mm echogenic lesion in the lower pole the right kidney. Appearance is suggestive of an AML and may be minimally increased in size. This finding is similar to previous ultrasounds but not seen by CT. Small left renal stone.
== END 2022-06-01 12:45 | disposition home or self-care (01) ==
LOC: HO.HMGCX 12:44
PROVIDERS: PCP Nurse Practitioner Family; Visit Provider Nurse Practitioner Family
DX: R10.31 Right lower quadrant pain (principal)
CPT/HCPCS: 76700

== ENCOUNTER 2022-06-17 09:46 | Outpatient (REF) | payer OTHER, SELFPAY ==
--- NOTE | ~2022-06-17 | MM_ITS ---
EXAMINATION: MM SCREENING DIGITAL BREAST TOMOSYNTHESIS, BILATERAL CLINICAL INFORMATION: Screening. Asymptomatic. The lifetime risk of breast cancer based on the Tyrer-Cuzick Model is 14%. COMPARISON: Mammography: 06/11/2021, 06/10/2015 (baseline). Right breast ultrasound 06/10/2015. TECHNIQUE: Digital breast tomosynthesis is performed in both the craniocaudal and mediolateral oblique views along with computer-aided detection (CAD). Synthesized 2D images are generated from the tomosynthesis. FINDINGS: The breasts are heterogeneously dense, which may obscure small masses (ACR BI-RADS breast composition Category c). Tissue composition borders on extremely dense. Parenchymal pattern is similar to prior exams and there is no developing density or interval architectural abnormality. There are no significant masses, abnormal calcifications, or other abnormalities. The axilla and skin contours are unremarkable. MM/MM tomosynthesis screening BI IMPRESSION: No mammographic evidence of malignancy. ASSESSMENT: BI-RADS 1: Negative RECOMMENDATION: Routine annual mammography screening. This patient's information was entered into a reminder system with a target due date for their next mammogram.
== END 2022-06-17 09:47 | disposition home or self-care (01) ==
LOC: HO.MAMMO 09:46
PROVIDERS: PCP Nurse Practitioner Family; Visit Provider Internal Medicine
DX: Z12.31 Encounter for screening mammogram for malignant neoplasm of breast (principal)
CPT/HCPCS: 77063; 77067

== ENCOUNTER → 2022-06-21 11:07 | Outpatient (BNVA) | payer OTHER, SELFPAY | PROVIDERS: PCP Nurse Practitioner Family; Visit Provider Urology | DX: N20.0 Calculus of kidney (principal); R10.2 Pelvic and perineal pain; R32 Unspecified urinary incontinence; R35.0 Frequency of micturition; D17.71 Benign lipomatous neoplasm of kidney | CPT/HCPCS: 99212 ==

== ENCOUNTER 2022-06-28 10:06 | Outpatient (REF) | payer OTHER, SELFPAY ==
[2022-06-28 11:14] LABS: MANUAL DIFF FLAG NO
[2022-06-28 11:31] LABS: Basophils Percent Auto 0.5 % (0-2); Eosinophils Absolute Auto 0.1 X10*3/uL (0.0-0.4); Eosinophils Percent Auto 0.9 % (0-4); Hematocrit 40.4 % (37.0-47.0); Hemoglobin 13.5 g/dl (12.0-16.0); Imm Gran Abs Auto 0.03 X10*3/uL (0.00-0.03); Imm Gran Pct Auto 0.4 % (0.0-0.4); Lymphocytes Absolute Auto 1.5 X10*3/uL (1.2-4.9); Lymphocytes Percent Auto 18.8 % (20-40); Mean Corpuscular HGB Conc 33.4 g/dl (31.0-35.0); Mean Corpuscular Hemoglobin 32.1 pg (27.0-33.0); Mean Corpuscular Volume 96.2 fL (80.0-98.0); Mean Platelet Volume 10.6 fL (9.4-12.3); Monocytes Absolute Auto 0.5 X10*3/uL (0.1-1.2); Monocytes Percent Auto 6.6 % (2-11); Neutrophils Absolute Auto 5.7 x10*3/uL (2.0-8.3); Neutrophils Percent Auto 72.8 % (45-73); Platelet Count 277 X10*3/uL (160-400); Red Cell Distribution Width 12.1 % (11.0-16.0); White Blood Count 7.8 X10*3/uL (4.8-10.8)
[2022-06-28 11:32] LABS: INTERNATIONAL NORM RATIO 0.9 (0.9-1.1); Prothrombin Time 9.8 SEC (10.0-13.1)
[2022-06-28 11:35] LABS: Partial Thromboplastin Time 26.5 SEC (26.0-36.4)
[2022-06-28 12:09] LABS: Alanine Aminotransferase 14 U/L (0-31); Albumin Level 4.4 g/dL (3.5-5.0); Alkaline Phosphatase 53 U/L (39-117); Anion Gap 12 (12-20); Aspartate Amino Transferase 19 U/L (5-31); Bilirubin Total 0.6 mg/dL (0.0-1.0); Blood Urea Nitrogen 9 mg/dL (9-16); Calcium 9.5 mg/dL (8.4-10.2); Carbon Dioxide 26 mmol/L (22-29); Chloride 105 mmol/L (96-108); Estimated Glomerular Filt Rate > 60; Glucose Random 93 mg/dL (60-115); Lipase 21 U/L (8-78); Potassium 4.2 mmol/L (3.3-5.1); Sodium 139 mmol/L (135-145); Total Protein 6.9 g/dL (6.5-8.0)
[2022-06-28 12:31] LABS: TSH reflex Free T4 0.75 uIU/mL (0.32-4.0)
[2022-06-28 12:32] LABS: HBS Num1 90.42 mIU/mL (0-7.99); HBc Num1 0.06 S/CO (0.00-0.79); HBsAGNum1 0.33 S/CO (0.00-0.99); Hepatitis A Antibody IgM 0.19 Index (0-0.79); Hepatitis B Core Antibody Nonreactive (Nonreactive); Hepatitis B Surface Antigen Negative (Negative); ~HepC Num1 0.22 S/CO (0.00-0.79); ~Hepatitis A Antibody IgM Nonreactive (Nonreactive); ~Hepatitis B Surface Antibody REACTIVE (Nonreactive); ~Hepatitis C Antibody Nonreactive (Nonreactive)
[2022-06-30 02:04] LABS: Lyme Abs Screen <0.90 index
[2022-06-30 13:38] LABS: Carbohydrate Antigen 19-9 27 U/mL (<34)
[2022-06-30 21:07] LABS: Transglutaminase Ab IgG <1.0 U/mL; Transglutaminase IgA <1.0 U/mL
[2022-07-04 14:49] LABS: Endomysial IgA Antibody Negative (Negative)
== END 2022-06-28 10:07 | disposition home or self-care (01) ==
LOC: HO.HMGCLDS 10:06
PROVIDERS: PCP Nurse Practitioner Family; Visit Provider Nurse Practitioner Family
DX: R10.9 Unspecified abdominal pain (principal); R23.8 Other skin changes; R74.8 Abnormal levels of other serum enzymes
CPT/HCPCS: 36415; 80053; 83690; 84443; 85025; 85610; 85730; 86231; 86301; 86364; 86617; 86618; 86704; 86706; 86709; 86803; 87340

== ENCOUNTER 2022-07-04 08:00 | Day surgery (SDC) | payer OTHER, SELFPAY ==
--- NOTE | 2022-07-03 09:58 | HO.ANESPROP2 ---
Documented by User: Merced Valdivia NP 07/03/22 09:59 HPI - Anesthesia Eval Consult details Narrative: 41yo F for Cystoscopy Hydrodistention of Bladder,poss bladder biopsy PMFSH Active Problems Active Problems: All Active Problems (Updated 06/21/22 @ 11:56 by Jesus Nichols) Urinary frequency (Acute) Urinary incontinence (Acute) Pain in pelvis (Acute) Renal angiomyolipoma (Acute) Left renal stone (Acute) Abdominal pain (Acute) RLQ abdominal pain (Acute) Dysuria (Acute) Galactorrhea (Acute) Elevated liver enzymes (Acute) Hyperhidrosis (Acute) Nephrolithiasis (Acute) Chest pain (Acute) Kidney stone on right side (Acute) Encounter to discuss test results (Acute) Abnormal uterine bleeding (AUB) (Acute) Encounter for Papanicolaou smear of vagina (Acute) Physical exam (Acute) Elevated fasting glucose (Acute) Diaphoresis (Acute) Bruises easily (Acute) Past Medical History Medical History Angiolipoma of kidney Depression with anxiety Hearing loss of left ear History of kidney stones Kidney stones PTSD (post-traumatic stress disorder) Family History Family History Maternal Uncle Substance use disorder Mother Mental health disorder Surgical History Surgical History History of ear surgery Social History Social History Household Members: Spouse and Children Housing: Condominium Are you a primary child care attendant to a significant other at home: No Do you presently have visiting nurse or other home services: No Alcohol intake: current Alcohol intake frequency: a few times a week Patient Tobacco Use Status: Current everyday Tobacco user e-Cigarette/Vaping Use: Currently Using Second Hand Smoke Exposure: No Substance Use Type: Painkillers service: No Current occupational status: employed Current occupation: [employer] Current occupational exposures/hazards: Yes Sexual orientation: Straight/Heterosexual Gender identity: Female Cognitive needs: No Hearing needs: Yes (bilateral hearing aids) Vision needs: No Meds Allergies Allergy/AdvReac Type Severity Reaction Status Date / Time amoxicillin [AMOXICILLIN] Allergy Unknown HIVES Verified 07/04/22 08:30 Penicillins [PENICILLINS] Allergy Unknown HIVES Verified 07/04/22 08:30 Sulfa (Sulfonamide AdvReac Unknown vomiting Verified 07/04/22 08:30 Antibiotics) Home Medications Medication Instructions Recorded Confirmed Last Taken Type No Known Home Meds 07/04/22 07/04/22 Unknown History Exam Exam Date and Time: July 03, 2022 0958 Pertinent Lab Results Pertinent Lab Results: Laboratory Tests 06/28/22 06/28/22 10:14 10:14 WBC 7.8 Hgb 13.5 Hct 40.4 Plt Count 277 Sodium 139 Potassium 4.2 Chloride 105 Carbon Dioxide 26 BUN 9 Creatinine 0.82 Assessment and Plan Assessment Anesthesia Assessment: Chart Reviewed Documented by User: Manuel Morrison MD 07/04/22 10:07 [facility] Past Medical History Medical History Angiolipoma of kidney Depression with anxiety Hearing loss of left ear History of kidney stones Kidney stones PTSD (post-traumatic stress disorder) Patient : No Family History Family History Maternal Uncle Substance use disorder Mother Mental health disorder Family history of problems with anesthesia: No Surgical History Surgical History History of ear surgery History of Problems with Anesthesia: No Social History Social History Household Members: Spouse and Children Housing: Condominium Are you a primary child care attendant to a significant other at home: No Do you presently have visiting nurse or other home services: No Alcohol intake: current Alcohol intake frequency: a few times a week Patient Tobacco Use Status: Current everyday Tobacco user e-Cigarette/Vaping Use: Currently Using Second Hand Smoke Exposure: No Substance Use Type: Painkillers service: No Current occupational status: employed Current occupation: [employer] Current occupational exposures/hazards: Yes Sexual orientation: Straight/Heterosexual Gender identity: Female Cognitive needs: No Hearing needs: Yes (bilateral hearing aids) Vision needs: No Meds Allergies Allergy/AdvReac Type Severity Reaction Status Date / Time amoxicillin [AMOXICILLIN] Allergy Unknown HIVES Verified 07/04/22 08:30 Penicillins [PENICILLINS] Allergy Unknown HIVES Verified 07/04/22 08:30 Sulfa (Sulfonamide AdvReac Unknown vomiting Verified 07/04/22 08:30 Antibiotics) Home Medications Medication Instructions Recorded Confirmed Last Taken Type No Known Home Meds 07/04/22 07/04/22 Unknown History Exam Airway Mallampati Class: I TM Dist: >3cm Neck ROM: Full Partial: Lower Loose/Missing/Broken Teeth: Yes Heart: ok Lungs: ok Assessment and Plan Assessment Anesthesia Assessment: Anesthesia Plan Discussed Final Anesthetic Review Family History of Problems with Anesthesia: No History of Problems with Anesthesia: No NPO: Yes ASA Class: II Final Preanesthetic Review: No Changes in Pt Med Stat, Meds/Allgs Chart Reviewed, Consent Obtained/Reviewed and Anes Risks/Benef Reviewed Patient Risk: Low Procedure Risk: Low Anesthetic Plan Anesthetic Plan: GA and Agree w/ Assess. and Plan Disposition: Standard PACU
[2022-07-04 08:13] VITALS: BMI 21.7
[2022-07-04] MEDS: Lactated Ringers 1,000 ML 100 ML IVCONT (08:20)
[2022-07-04 08:27] LABS: UPreg QC Valid YES; Urine Pregnancy NEGATIVE (NEGATIVE)
[2022-07-04 08:28] VITALS: BP 131/84; PULSE 65; RESP 18; TEMP 36.7; O2SAT 99
--- NOTE | 2022-07-04 09:16 | MHC.SHP ---
Pre-Procedural Eval Section A Date of Service: 07/04/22 The patient is an INPATIENT: No The History & Physical has been completed within 30 days and I have reviewed it.: Yes Section B Chief Complaint: Bladder pain Allergies: Allergies Allergy/AdvReac Type Severity Reaction Status Date / Time amoxicillin [AMOXICILLIN] Allergy Unknown HIVES Verified 07/04/22 08:30 Penicillins [PENICILLINS] Allergy Unknown HIVES Verified 07/04/22 08:30 Sulfa (Sulfonamide AdvReac Unknown vomiting Verified 07/04/22 08:30 Antibiotics) Plan Diagnosis/Plan: Unchanged I have reviewed the history and physical and performed a pertinent physical examination on my patient. No changes have occurred unless specified. Cystoscopy Hydrodistension, possible bladder biopsy. Discussed risks to include but not limited to, blood in the urine, burning with urination, urgency. Time Spent With Patient Time: Total time managing care of this patient today ____ minutes.
[2022-07-04 10:09] VITALS: BP 105/59; PULSE 71; RESP 18; TEMP 36.9; O2SAT 98
--- NOTE | 2022-07-04 10:09 | W.PM.OPN ---
Operative Note Operative Note Date of Service: 07/04/22 Narrative: PREOP DIAGNOSIS: Bladder pressure, Urgency POSTOP DIAGNOSIS: Bladder pressure, Urgency, Interstitial cystitis PROCEDURE: CYSTOSCOPY HYDRODISTENTION, BLADDER INSTALLATION Anethesia: General Surgeon: Dr. Syed Rushing Indications: Taryn is a 41-year-old female who is followed due to history of kidney stones and has had complaints of lower urinary tract symptoms with bladder pressure and urgency. Ultrasound evaluation no hydronephrosis left kidney 4 mm nonobstructing stone. The patient is here for further evaluation of the bladder. Details of procedure: The patient was brought into the operating room placed on the OR table in supine position. Levaquin 500 mg IV. General anesthesia was administered. The patient was repositioned into lithotomy position, prepped and draped in the usual sterile fashion. Time-out was done per protocol. A 22 fr cystoscope was placed transurethrally into the bladder. Urine was drained from the bladder measuring 200 mL. Urine was sent for culture. The right and left ureteral orifices were visualized. The entire bladder was visualized. There were no suspicious bladder lesions seen. There were mild trabeculations noted. The bladder was filled with sterile water at 80 cm of water pressure under gravity. The bladder was distended for 2 minutes. Bladder capacity measured 700 mL. Revisualization of the bladder, noted mild glomerulations on several quadrants of the bladder. No Darrell ulcerations. The bladder was refilled with sterile water again at 80 cm of water pressure under gravity. The bladder was distended for 3 minutes. The fluid was drained from the bladder and measured 100 and mL. The cystoscope was removed. 2% lidocaine urojet was passed transurethrally. Using a catheter tip syringe, bladder installation- Solution of (1% lidocaine plain, 15 mL, 0.5 % Marcaine 15 mL mixed with 30, 000 units of heparin concentration 5000 units per mL total of 6 mL hepaine) instilled transurethrally into the bladder. [] A Belladonna rectal supository was administered. The patient was brought out of anesthesia and taken to recovery in stable condition. Complications: None Drains: none
[2022-07-04 10:14] VITALS: BP 116/78; PULSE 76; RESP 20; O2SAT 100
[2022-07-04 10:19] VITALS: BP 116/78; PULSE 60; RESP 20; O2SAT 99
[2022-07-04 10:24] VITALS: BP 118/72; PULSE 62; RESP 20; TEMP 36.1; O2SAT 100
[2022-07-04 10:39] VITALS: BP 116/75; PULSE 73; RESP 20; TEMP 36.2; O2SAT 100
[2022-07-04] MEDS: Phenazopyridine HCL 100 MG TABLET 200 MG PO (10:43)
== END 2022-07-04 11:29 | disposition home or self-care (01) ==
PROVIDERS: Nurse Practitioner; PCP Nurse Practitioner Family; Visit Provider Urology
PROC: 0T7B7ZZ Dilation of Bladder, Via Natural or Artificial Opening (ICD-10-PCS; CPT 52260; principal; 2022-07-04 09:40)
DX: N30.10 Interstitial cystitis (chronic) without hematuria (principal); R39.82 Chronic bladder pain; R35.0 Frequency of micturition; R39.15 Urgency of urination; R10.2 Pelvic and perineal pain; D17.71 Benign lipomatous neoplasm of kidney; N20.0 Calculus of kidney; Z87.442 Personal history of urinary calculi; F41.8 Other specified anxiety disorders; F43.10 Post-traumatic stress disorder, unspecified; H91.92 Unspecified hearing loss, left ear; Z88.0 Allergy status to penicillin; Z88.1 Allergy status to other antibiotic agents; Z88.2 Allergy status to sulfonamides; Z87.891 Personal history of nicotine dependence
CPT/HCPCS: 52260; 51700; 81025; 87086; J1643; J1885; J1956; J2405; J2795; J3010

== ENCOUNTER 2022-07-25 10:08 | Outpatient (REF) | payer OTHER, SELFPAY ==
[2022-07-25 15:28] LABS: CT PCR NOT DETECTED (Not Detect.); NG PCR NOT DETECTED (Not Detect.)
[2022-07-26 12:37] LABS: BV Int Neg Control Negative (Negative); BV Int Pos Control Positive (Positive)
== END 2022-07-25 10:09 | disposition home or self-care (01) ==
LOC: HO.LNP 10:08
PROVIDERS: Advanced Practice Midwife; PCP Nurse Practitioner Family; Visit Provider Advanced Practice Midwife
DX: Z20.2 Contact with and (suspected) exposure to infections with a predominantly sexual mode of transmission (principal); N64.3 Galactorrhea not associated with childbirth; N20.0 Calculus of kidney; N89.8 Other specified noninflammatory disorders of vagina
CPT/HCPCS: 0353U; 87480; 87510; 87660

== ENCOUNTER 2022-07-27 13:01 | Outpatient (REF) | payer OTHER, SELFPAY ==
--- NOTE | ~2022-07-27 | US_ITS ---
EXAMINATION: US PELVIS COMPLETE CLINICAL INFORMATION: Right ovarian cyst COMPARISON: Pelvic ultrasound 05/16/2022 TECHNIQUE: Transabdominal and transvaginal imaging was performed. FINDINGS: The uterus is of normal size measuring 9.7 x 5.2 x 6.2 cm. A regular homogeneous endometrium is identified measuring 1.1 cm. A 3.0 x 2.4 x 3.3 cm transmural myoma in the posterior body with a less than 50% submucosal component, previously 3.3 cm similar to prior. A 2.2 cm isoechoic lesion in the posterior body with some cystic internal change may reflect a degenerating intramural myoma versus a focal adenomyoma. Heterogeneous myometrial echotexture posteriorly with Venetian blind shadowing suggestive of adenomyosis. Nabothian cysts in the cervix. Both ovaries are of echogenicity. The right measures 4.0 x 3.2 x 4.1 cm for a volume of 6.8 mL and is remarkable for a 3.6 x 2.9 x 3.5 cm cyst with a single thin avascular internal septation, unclear if this corresponds to the previously seen thinly septated 8 mm right ovarian cyst from this reflects a new lesion.. The left measures 2.5 x 1.6 x 2.1 cm for a volume of 4.3 mL. There is no pelvic free fluid. US/US pelvic and transvaginal IMPRESSION: * A 3.6 cm right ovarian cyst with a single thin avascular internal septation, unclear if this corresponds to the previously seen thinly septated 8 mm right ovarian cyst from this reflects a new lesion. Given there is only a single thin internal septation, this is likely benign. No routine follow up imaging recommended. * A 3.3 cm transmural myoma in the posterior body with a less than 50% submucosal component, similar to prior. * Heterogeneous myometrial echotexture posteriorly with Venetian blind shadowing suggestive of adenomyosis. A 2.2 cm isoechoic lesion in the posterior body with some cystic internal change may reflect a focal adenomyoma versus a degenerating myoma.
== END 2022-07-27 13:02 | disposition home or self-care (01) ==
LOC: HO.HMGCX 13:01
PROVIDERS: PCP Nurse Practitioner Family; Visit Provider Advanced Practice Midwife
DX: N83.291 Other ovarian cyst, right side (principal)
CPT/HCPCS: 76830; 76856

== ENCOUNTER → 2022-08-03 09:57 | Outpatient (BNVA) | payer OTHER, SELFPAY | PROVIDERS: PCP Nurse Practitioner Family; Visit Provider Advanced Practice Midwife | DX: Z71.2 Person consulting for explanation of examination or test findings (principal); N83.201 Unspecified ovarian cyst, right side; R10.2 Pelvic and perineal pain | CPT/HCPCS: 99212 ==

== ENCOUNTER 2022-08-14 15:35 | Outpatient (AMB) | payer OTHER, SELFPAY ==
--- NOTE | 2022-08-14 15:50 | MHC.OFFVIS ---
Intake Intake Visit Reasons: Missed appointment today Intake Note: Patient presents today for a follow-up ? Meds: Vitamin B6 ? Allergies to Antibiotic: Amoxicillin, Penicillins & Sulfa ? Blood Thinner: None Forestry Laborer Required: No Accompanied by: Self / Same As Patient Allergies amoxicillin [AMOXICILLIN] Allergy (Unknown, Verified 08/14/22 15:52) HIVES Penicillins [PENICILLINS] Allergy (Unknown, Verified 08/14/22 15:52) HIVES Sulfa (Sulfonamide Antibiotics) Adverse Reaction (Unknown, Verified 08/14/22 15:52) vomiting cymbalta Adverse Reaction (Severe, Uncoded 08/14/22 15:52) Hallucinations HPI HPI Comments History of Present Illness Details Taryn is a 41-year-old female who presents to the office s/p cystoscopy hydrodistention 08/14/2022-- The patient underwent cystoscopy hydrodistention on 07/04/22. Cystoscopy findings----Bladder capacity 700 milliliters. Mild glomerulations on several quadrants of the bladder consistent with cystitis. I discussed with the patient that Interstitial cystitis is a chronic condition in which the lining of the bladder is inflamed and symptoms may include bladder pressure, burning with urination, urgency or pelvic pain. The exact cause for IC is not known, but likely factors that contribute would be factors that affect the protective lining of the bladder allowing urine to irritate the bladder wall. Contributing factors may include Recurrent UTI's, autoimmune reaction, heredity or allergy. Treatment includes lifestyle changes including diet modification, anti-spasm and anti-histamine medications. Review of chart: Last office visit?06/21/22--Taryn is a 41-year-old female patient who presents to the office for nephrolithiasis follow-up. The patient was seen last by Dr. Biggs on 12/15/20. h/o of kidney stones. The patient is currently taking vitamin B6 100 mg daily and states she consumes adequate amount of water.She states she was in the ER in February 2021 for pain in the pelvis. She c/o's constant pelvic pain. I have reviewed the CT results at ED visit, 2mm Left kidney stone States having fibroids in the uterus and would be re-evaluated after 6 weeks with imaging. States having urinary leakage and occasional bladder pain. States having family history of renal lesion in mother. Evaluation today: blood: negative, leukocytes: negative. Abdomen US results reviewed?06/01/22-- Suggestive of 6 x 5 mm echogenic lesion in the lower pole of the right kidney and a 4 mm left kidney stone which was also visualized on the previous abdominal US--01/03/22. I have discussed echogenic lesion is suggestive of renal angiomyolipoma, will get MRI for further eval. Stone analysis--05-13-18--calcium oxalate- 50% and carbonate apatite- 50%. Plan:Pelvic Pain. Cystoscopy hydrodistension possible bladder biopsy discussed to be scheduled. Consent was obtained Right renal echogenic lesion. MRI abdomen prior was ordered. Follow-up in 4 months. 08/14/22--Evaluation today-- Blood: negative, leukocytes: negative. 08/14/22--Plan: IC diet sheet was given to the patient. Follow-up after 10 months. Renal angiomyolipoma - Renal US prior. Instructed to call if experiencing any UTI symptoms in the interim. [facility] Medical History (Updated 08/14/22 @ 16:11 by Jesus Nichols) Angiolipoma of kidney Depression with anxiety Fibroid Hearing loss of left ear History of kidney stones Kidney stones Pelvic pain PTSD (post-traumatic stress disorder) Right ovarian cyst Surgical History History of cystoscopy History of ear surgery Family History Maternal Uncle Substance use disorder Mother Mental health disorder Social History Household Members: Spouse and Children Housing: Condominium Are you a primary care team coordinator scheduler to a significant other at home: No Do you presently have visiting nurse or other home services: No Alcohol intake: current Alcohol intake frequency: a few times a week Patient Tobacco Use Status: Current everyday Tobacco user e-Cigarette/Vaping Use: Currently Using Second Hand Smoke Exposure: No Substance Use Type: Painkillers service: No Current occupational status: employed Current occupation: [employer] Current occupational exposures/hazards: Yes Sexual orientation: Straight/Heterosexual Gender identity: Female Cognitive needs: No Hearing needs: Yes (bilateral hearing aids) Vision needs: No Female Reproductive History Menstrual Age of Menarche: 12 Review of Systems Const All systems reviewed & are unremarkable except as noted in HPI and below Reports no additional complaints Eyes Reports no additional complaints ENT Reports no additional complaints Card Denies dyspnea Resp Denies cough and Denies dyspnea GI Reports no additional complaints Reports no additional complaints Musc Reports no additional complaints Skin/Breast Denies rash and Denies unusual bruising Neuro Reports no additional complaints Psych Reports no additional complaints Endo Reports no additional complaints Jose/Lymph Reports no additional complaints Aller/Immun Reports no additional complaints Results AMB Urinalysis, Automated UA Leukoctes 0 Mary Kay/uL Last Edit by CLAUDIA Burger on 08/14/22 16:04 UA Nitrite Negative Last Edit by Cecilia Basurto Anita on 08/14/22 16:04 UA Urobilinogen 0.2 mg/dL Last Edit by Cecilia Basurto [facility] on 08/14/22 16:04 UA Protein 15 mg/dL Last Edit by Cecilia Basurto [facility] on 08/14/22 16:04 UA pH 6.0 Last Edit by Cecilia Basurto [facility] on 08/14/22 16:04 UA Blood 0 Armand/uL Last Edit by Cecilia Basurot [facility] on 08/14/22 16:04 UA Specific Roscoe 1.025 Last Edit by Cecilia Basurto Anita on 08/14/22 16:04 UA Ketone Negative Last Edit by Cecilia Basurto [facility] on 08/14/22 16:04 UA Bilirubin 0 mg/dL Last Edit by Cecilia Basurto [facility] on 08/14/22 16:04 UA Glucose 0 mg/dL Last Edit by Cecilia Basurto [facility] on 08/14/22 16:04 Results Reviewed Results Reviewed: Laboratory Last Values Urine pH (Auto) 6.0 08/14/22 15:59 Specific Roscoe (Auto) 1.025 08/14/22 15:59 Urine Protein (Auto) 15 mg/dL 08/14/22 15:59 Glucose (UA)(Auto) 0 mg/dL 08/14/22 15:59 Urine Ketones (Auto) Negative 08/14/22 15:59 Urine Blood (Auto) 0 Armand/uL 08/14/22 15:59 Urine Nitrite (Auto) Negative 08/14/22 15:59 Urine Bilirubin (Auto) 0 mg/dL 08/14/22 15:59 Urine Urobilinogen (Auto) 0.2 mg/dL 08/14/22 15:59 Leukocyte Esterase (Auto) 0 Mary Kay/uL 08/14/22 15:59 Assessment & Plan Assessment & Plan (1) Renal angiomyolipoma: Code(s): D17.71 - Benign lipomatous neoplasm of kidney (2) Interstitial cystitis: Code(s): N30.10 - Interstitial cystitis (chronic) without hematuria (3) History of kidney stones: Comment: laser removal Code(s): Z87.442 - Personal history of urinary calculi Plan IC diet sheet was given to the patient. Follow-up after 10 months. Renal angiomyolipoma - Renal US prior. Instructed to call if experiencing any UTI symptoms in the interim. Orders: Orders AMB Urinalysis Automated 08/14/22 Z13.9 - Encounter for screening, unspecified Patient Instructions: The patient had an opportunity to ask questions regarding treatment plan. All questions were answered. Laboratory studies and physical exam results were discussed and reviewed in detail. No major barriers to understanding were identified. The patient expressed understanding and agreement with the above treatment plan. The patient is aware they should contact our office by phone for worsening of their current condition or the appearance of new symptoms. Compliance is encouraged with any medications and followup testing that is ordered. It is a privilege to be allowed the opportunity to participate in the urologic care of your patient. If you have any questions or concerns regarding treatment for the above conditions please do not hesitate to contact me. The office telephone contact is [phone]. This note is constructed in part using voice recognition software. While every effort has been made to ensure accuracy screenplay writer errors may have been included. Yours sincerely, Syed Rushing MD Coding Level of Care Code Est Pt Level 4 (40213) Diagnoses Renal angiomyolipoma D17.71 Interstitial cystitis N30.10 History of kidney stones Z87.442 Time Spent (min) 29
--- NOTE | 2022-08-14 15:58 | ...WebTmpl.AM.EDVIS ---
Intake Visit Reasons: Missed appointment today Allergies amoxicillin [AMOXICILLIN] Allergy (Unknown, Verified 08/14/22 15:52) HIVES Penicillins [PENICILLINS] Allergy (Unknown, Verified 08/14/22 15:52) HIVES Sulfa (Sulfonamide Antibiotics) Adverse Reaction (Unknown, Verified 08/14/22 15:52) vomiting cymbalta Adverse Reaction (Severe, Uncoded 08/14/22 15:52) Hallucinations
== END 2022-08-14 16:09 | disposition home or self-care (01) ==
LOC: HO.HUSH 15:35
PROVIDERS: PCP Nurse Practitioner Family; Visit Provider Urology
DX: D17.71 Benign lipomatous neoplasm of kidney (principal); N30.10 Interstitial cystitis (chronic) without hematuria; Z87.442 Personal history of urinary calculi
CPT/HCPCS: 99214

== ENCOUNTER → 2022-08-14 15:35 | Outpatient (BNVA) | payer OTHER, SELFPAY | PROVIDERS: PCP Nurse Practitioner Family; Visit Provider Urology | DX: D17.71 Benign lipomatous neoplasm of kidney (principal); N30.10 Interstitial cystitis (chronic) without hematuria; Z87.442 Personal history of urinary calculi | CPT/HCPCS: 99212 ==

== ENCOUNTER 2022-11-21 08:58 | Outpatient (AMB) | payer OTHER, SELFPAY ==
[2022-11-21 09:06] VITALS: BP 106/70; BMI 21.2
--- NOTE | 2022-11-21 09:06 | MHC.OFFVIS ---
Intake Vital Signs 11/21/22 09:06 Height 5 ft 1 in Weight 112 lb BMI 21.2 BP 106/70 Intake Visit Reasons: Lumps in breast Intake Note: Lump in right breast The patient agreed to use of a medical technologist microbiology during this encounter. Scribed for OREN Velez by Lila Seth, medical technologist microbiology, on 11/21/2022 at 9:17 am EST. Die Maker Apprentice: Die Maker Apprentice Present (Alea) Allergies amoxicillin [AMOXICILLIN] Allergy (Unknown, Verified 11/21/22 09:07) HIVES Penicillins [PENICILLINS] Allergy (Unknown, Verified 11/21/22 09:07) HIVES Sulfa (Sulfonamide Antibiotics) Adverse Reaction (Unknown, Verified 11/21/22 09:07) vomiting cymbalta Adverse Reaction (Severe, Uncoded 08/14/22 15:52) Hallucinations Is last menstrual period known: Yes Last menstrual period: 11/20/22 HPI HPI Comments History of Present Illness Details She is here with complaints of lump in her breast and tenderness which worsens on her menses. Reports it has double in size and one breast is bigger than the other. Admits nipple discharge, not spontaneously, she reports its comes out due to squeezing the breast. Denies any injuries to the breast. [facility] Medical History (Updated 11/21/22 @ 09:26 by Lial Seth) Breast pain, right Breast tenderness in female Fibroid Pelvic pain Right ovarian cyst Angiolipoma of kidney History of kidney stones Hearing loss of left ear PTSD (post-traumatic stress disorder) Depression with anxiety Kidney stones Surgical History History of cystoscopy History of ear surgery Family History Maternal Uncle Substance use disorder Mother Mental health disorder Social History Household Members: Spouse and Children Housing: Condominium Are you a primary customer care specialist to a significant other at home: No Do you presently have visiting nurse or other home services: No Alcohol intake: current Alcohol intake frequency: a few times a week Patient Tobacco Use Status: Current everyday Tobacco user e-Cigarette/Vaping Use: Currently Using Second Hand Smoke Exposure: No Substance Use Type: Painkillers service: No Current occupational status: employed Current occupation: [employer] Current occupational exposures/hazards: Yes Sexual orientation: Straight/Heterosexual Gender identity: Female Cognitive needs: No Hearing needs: Yes (bilateral hearing aids) Vision needs: No Female Reproductive History Menstrual Age of Menarche: 12 Date of last menstrual period: 11/20/22 Physical Exam Vital Signs: Last Vital Signs BP 106/70 11/21/22 09:06 BMI result Body Mass Index 21.2 Const General: cooperative, healthy appearing, comfortable, no acute distress, well developed, alert and awake Chest Other: no nipple discharge with expression bilaterally; breast tenderness @ 10:00, firm nodular tissue Chest palpation & inspection: normal inspection of the chest and mass Breast/axilla inspection: normal inspection of the breasts, normal inspection of the axillae and Other ((no puckering, dimpling, peau de orange, retraction, discharge, masses)) Breast/axilla palpation: normal palpation of the breasts and normal palpation of the axillae Results Reviewed Results Reviewed: Ordering Physician: Corrie Chaves MD Results: 1Negative Date of Service: 06/17/22 Follow Up: 1 Year From Original Mammogram Procedure(s): MM tomosynthesis screening BI Accession Number(s): [id number] cc: Corrie Chaves MD~ EXAMINATION: MM SCREENING DIGITAL BREAST TOMOSYNTHESIS, BILATERAL CLINICAL INFORMATION: Screening. Asymptomatic. The lifetime risk of breast cancer based on the Tyrer-Cuzick Model is 14%. COMPARISON: Mammography: 06/11/2021, 06/10/2015 (baseline). Right breast ultrasound 06/10/2015. TECHNIQUE: Digital breast tomosynthesis is performed in both the craniocaudal and mediolateral oblique views along with computer-aided detection (CAD). Synthesized 2D images are generated from the tomosynthesis. FINDINGS: The breasts are heterogeneously dense, which may obscure small masses (ACR BI-RADS breast composition Category c). Tissue composition borders on extremely dense. Parenchymal pattern is similar to prior exams and there is no developing density or interval architectural abnormality. There are no significant masses, abnormal calcifications, or other abnormalities. The axilla and skin contours are unremarkable. MM/MM tomosynthesis screening BI IMPRESSION: No mammographic evidence of malignancy. ASSESSMENT: BI-RADS 1: Negative RECOMMENDATION: Routine annual mammography screening. This patient's information was entered into a reminder system with a target due date for their next mammogram. Assessment & Plan Assessment & Plan (1) Breast pain, right: Code(s): N64.4 - Mastodynia Plan: Discussed: Dx. Mammogram/breast US ordered. Advised not to squeeze/milk breast, and to report any spontaneous discharge, wear a supportive bra, monitor and lower caffeine intake, and research supplements Vitamins and flax seed. All of her questions and concerns were addressed to the best of my ability and shared decision making. She is agreeable to plan of care. RTO follow up US. Orders: Orders US breast RT complete Today N63.11 - Unspecified lump in the right breast, upper outer quadrant, N64.4 - Mastodynia MM tomosynthesis diagnostic RT Today N63.10 - Unspecified lump in the right breast, unspecified quadrant, N64.4 - Mastodynia Coding Level of Care Code Est Pt Level 3 (05548) Diagnoses Breast pain, right N64.4
== END 2022-11-21 09:26 | disposition home or self-care (01) ==
PROVIDERS: PCP Nurse Practitioner Family; Visit Provider Advanced Practice Midwife
DX: N64.4 Mastodynia (principal)
CPT/HCPCS: 99213

== ENCOUNTER → 2022-11-21 08:58 | Outpatient (BNVA) | payer OTHER, SELFPAY | PROVIDERS: PCP Nurse Practitioner Family; Visit Provider Advanced Practice Midwife | DX: N64.4 Mastodynia (principal) | CPT/HCPCS: 99212 ==

== ENCOUNTER 2022-11-30 13:15 | Outpatient (REF) | payer OTHER, SELFPAY | END 2022-11-30 13:16 | disposition home or self-care (01) | LOC: HO.MAMMO 13:15 | PROVIDERS: PCP Nurse Practitioner Family; Visit Provider Advanced Practice Midwife | DX: N64.4 Mastodynia (principal); N63.11 Unspecified lump in the right breast, upper outer quadrant | CPT/HCPCS: 76642; 77061; 77065 ==

== ENCOUNTER → 2022-11-30 13:30 | Outpatient (BNV) | payer OTHER, SELFPAY | PROVIDERS: PCP Nurse Practitioner Family; Visit Provider Radiology Diagnostic Radiology | DX: R92.321 Mammographic fibroglandular density, right breast (principal) | CPT/HCPCS: 76642; 77061; 77065 ==

== ENCOUNTER 2023-02-13 10:26 | Outpatient (AMB) | payer OTHER, SELFPAY ==
--- NOTE | 2023-02-13 10:29 | A.OFFVIS_ITS ---
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 She does not see any nipple discharge at this time. She reports breast are more sensitive during her cycle. No specific concerns for today. Her cycle was approximately a week ago. [facility] Medical History (Updated 11/21/22 @ 09:26 by Lila Seth) Breast pain, right Breast tenderness in female Fibroid Pelvic pain Right ovarian cyst Angiolipoma of kidney History of kidney stones Hearing loss of left ear PTSD (post-traumatic stress disorder) Depression with anxiety Kidney stones Surgical History History of cystoscopy History of ear surgery Family History Maternal Uncle Substance use disorder Mother Mental health disorder Social History Household Members: Spouse and Children Housing: Condominium Are you a primary director critical care to a significant other at home: No Do you presently have visiting nurse or other home services: No Alcohol intake: current Alcohol intake frequency: a few times a week Patient Tobacco Use Status: Current everyday Tobacco user e-Cigarette/Vaping Use: Currently Using Second Hand Smoke Exposure: No Substance Use Type: Painkillers service: No Current occupational status: employed Current occupation: [employer] Current occupational exposures/hazards: Yes Sexual orientation: Straight/Heterosexual Gender identity: Female Cognitive needs: No Hearing needs: Yes (bilateral hearing aids) Vision needs: No Female Reproductive History Menstrual Age of Menarche: 12 Date of last menstrual period: 02/03/23 Review of Systems Const All systems reviewed & are unremarkable except as noted in HPI and below Reports no additional complaints Skin/Breast Reports system reviewed and no additional complaints, except as documented and Reports as per HPI Physical Exam Vital Signs: Last Vital Signs BP 112/74 02/13/23 10:30 BMI result Body Mass Index 21.2 Const General: cooperative, healthy appearing and no acute distress Chest Breast/axilla inspection: normal inspection of the breasts and normal inspection of the axillae Breast/axilla palpation: normal palpation of the breasts Skin General skin exam: no rashes or lesions noted Results Reviewed Results Reviewed: [facility] [address] [place], [place] [address] Ultrasound Report Signed Patient: Taryn Anton MR#: [id number] : 1980 Acct:[id number] Age Sex: 41 / F ADM Date: 11/30/22 Loc: HO.MAMMO Attending Dr: Genia Mendez CNM Ordering Physician: Genia Mendez CNM Date of Service: 11/30/22 Procedure(s): US breast RT limited mamm only Accession Number(s): [id number] cc: Gee Mena GRASS FARMER-; Genia Mendez CNM~ EXAMINATION: MM DIAGNOSTIC DIGITAL BREAST TOMOSYNTHESIS, RIGHT US BREAST LIMITED, RIGHT MAMMOGRAPHY: CLINICAL INFORMATION: 41-year-old female complaining of palpable abnormality right axillary tail region. COMPARISON: Mammography: 06/17/2022, 06/11/2021, 06/10/2015 (baseline). Right breast ultrasound 06/10/2015. TECHNIQUE: Digital breast tomosynthesis is performed in both the craniocaudal and mediolateral oblique views along with computer-aided detection (CAD). Synthesized 2D images are generated from the tomosynthesis. In addition, full-field right exaggerated CC 3-D view was performed. FINDINGS: The breasts are extremely dense, which lowers the sensitivity of mammography (ACR BI-RADS breast composition Category d). There are no suspicious masses, suspicious grouped calcifications, or areas of architectural distortion in the right breast. The parenchymal pattern is stable from prior exams. No definite mammographic abnormality seen in the axillary tail region of the right breast to account for the palpable abnormality. This area will be examined with ultrasound. ULTRASOUND: CLINICAL INFORMATION: Palpable abnormality right axillary tail. COMPARISON: None relevant. TECHNIQUE: Targeted sonographic evaluation was performed using a high frequency linear transducer. Selected archived documentation. FINDINGS: RIGHT BREAST: There is extremely dense fibroglandular tissue present. No suspicious mass is seen. There is no pathologic acoustic shadowing. There is no cystic abnormality. There is no axillary adenopathy. There is no ultrasonographic correlate to the palpable abnormality in the right axillary tail region. US/US breast RT limited mamm only IMPRESSION: There are no findings suspicious for malignancy in the right breast. There is no mammographic or ultrasonographic correlate to the focus of palpable concern in the right axillary tail region. Recommend clinical management. Decision to biopsy a palpable abnormality without imaging correlate must be determined on a clinical basis. OVERALL ASSESSMENT: Mammography: BI-RADS 1 - Negative Ultrasound: BI-RADS 1 - Negative RECOMMENDATION: 1. Patient should be managed based on the clinical impression. Decision to proceed with biopsy should be based on clinical grounds and degree of clinical concern. 2. Otherwise, routine annual screening mammography. Results were provided to the patient at time of visit by the technologist. This patient's information was entered into a reminder system with a target due date for their next mammogram. Dictated By: Morales Kim MD Signed By: <Electronically signed by Morales Kim MD in OV> 11/30/22 1838 DD/ 1432 TD/TT: Peanut Shaker: Assessment & Plan Assessment & Plan (1) Encounter to discuss test results: Code(s): Z71.2 - Person consulting for explanation of examination or test findings (2) Mastalgia in female: Code(s): N64.4 - Mastodynia Plan Discussed: Ultrasound mammogram findings which were normal. Monitor symptoms report any abnormality findings. Follow up with yearly mammograms. Next appointment is July 2023 for community planner annual. All of her questions and concerns were addressed to the best of my ability. This note is constructed using voice recognition software. While every effort has been made to ensure accuracy, electrical technician errors may have been included. Coding Level of Care Code Est Pt Level 3 (63782) Diagnoses Encounter to discuss test results Z71.2 Mastalgia in female N64.4
[2023-02-13 10:30] VITALS: BP 112/74; BMI 21.2
== END 2023-02-13 12:56 | disposition home or self-care (01) ==
PROVIDERS: PCP Nurse Practitioner Family; Visit Provider Advanced Practice Midwife
DX: Z71.2 Person consulting for explanation of examination or test findings (principal); N64.4 Mastodynia
CPT/HCPCS: 99213

== ENCOUNTER → 2023-02-13 10:26 | Outpatient (BNVA) | payer OTHER, SELFPAY | PROVIDERS: PCP Nurse Practitioner Family; Visit Provider Advanced Practice Midwife | DX: Z71.2 Person consulting for explanation of examination or test findings (principal); N64.4 Mastodynia | CPT/HCPCS: 99212 ==

== ENCOUNTER 2023-04-30 08:56 | Outpatient (AMB) | payer OTHER, SELFPAY ==
[2023-04-30 09:39] VITALS: BP 110/70; PULSE 73; TEMP 36.2; O2SAT 98; BMI 21.2
--- NOTE | 2023-04-30 09:39 | AM.OFFWIN_ITS ---
Intake Vital Signs 04/30/23 09:39 Height 5 ft 1 in Weight 112 lb BMI 21.2 BP 110/70 Blood Pressure Location Lt brachial Position Sitting Pulse 73 Temp 97.2 F Temp Source Temporal Artery Scan Pulse Oximetry (%) 98 Oxygen Delivery Method Room Air Intake Visit Reasons: EST/stomach pain ([phone]) Intake Note: pt is here today for stomach pain started 1 week ago Patient Tobacco Use Status: Current everyday Tobacco user Allergies amoxicillin [AMOXICILLIN] Allergy (Unknown, Verified 05/01/23 04:34) HIVES Penicillins [PENICILLINS] Allergy (Unknown, Verified 05/01/23 04:34) HIVES Sulfa (Sulfonamide Antibiotics) Adverse Reaction (Unknown, Verified 05/01/23 04:34) vomiting cymbalta Adverse Reaction (Severe, Uncoded 05/01/23 04:34) Hallucinations Medication List - Last Reconciled 05/01/23 by Tushar Singleton MD multivitamin (Daily Multi-Vitamin tablet) 1 tab PO DAILY pyridoxine (vitamin B6) 500 mg PO DAILY Do you need a note to return to daycare/school/sports/work: No HPI EST/stomach pain ([phone]) HPI Details 42-year-old female presents to the [facility] for a sick visit. Patient is reporting a bloated sensation in her stomach for many months. No belching or burping. Patient reports that it is possible that she could have lost weight. She has not been checking. Her appetite is low. She is passing stringy stool. Unable to confirm if there were were worms. No perianal itchi ng. Able to function and do activities of daily living. [facility] Medical History (Updated 11/21/22 @ 09:26 by Lila Seth) Breast pain, right Breast tenderness in female Fibroid Pelvic pain Right ovarian cyst Angiolipoma of kidney History of kidney stones Hearing loss of left ear PTSD (post-traumatic stress disorder) Depression with anxiety Kidney stones Surgical History History of cystoscopy History of ear surgery Family History Maternal Uncle Substance use disorder Mother Mental health disorder Social History Household Members: Spouse and Children Housing: Condominium Are you a primary care advocate to a significant other at home: No Do you presently have visiting nurse or other home services: No Alcohol intake: current Alcohol intake frequency: a few times a week Patient Tobacco Use Status: Current everyday Tobacco user e-Cigarette/Vaping Use: Currently Using Second Hand Smoke Exposure: No Substance Use Type: Painkillers service: No Current occupational status: employed Current occupation: [employer] Current occupational exposures/hazards: Yes Sexual orientation: Straight/Heterosexual Gender identity: Female Cognitive needs: No Hearing needs: Yes (bilateral hearing aids) Vision needs: No Female Reproductive History Menstrual Age of Menarche: 12 Physical Exam Vital Signs: Last Vital Signs Temp 97.2 F 04/30/23 09:39 Pulse 73 04/30/23 09:39 BP 110/70 04/30/23 09:39 Pulse Ox 98 04/30/23 09:39 Oxygen Delivery Method Room Air 04/30/23 09:39 BMI result Body Mass Index 21.2 Const General: cooperative and healthy appearing Nutritional Appearance: well nourished Orientation/consciousness: patient oriented x3 Limitations: no limitations HEENT Head: Yes normal to inspection Eyes General: appearance normal, both eyes and all related structures Neck Neck: Yes normal visual inspection Chest Chest palpation & inspection: normal palpation of entire chest wall Resp Effort & Inspection: normal respiratory effort Neuro General: patient oriented x3 Assessment & Plan Assessment & Plan (1) Abdominal pain: Code(s): R10.9 - Unspecified abdominal pain Plan: Patient complaints are vague. Physical exam is unremarkable. Will order blood work. Pt was encouraged to see her PCP and get evaluated for IBS Orders: Orders Basic Metabolic Panel 04/30/23 R10.9 - Unspecified abdominal pain Lipid Panel 04/30/23 R10.9 - Unspecified abdominal pain Liver Panel 04/30/23 R10.9 - Unspecified abdominal pain Erythrocyte Sedimentation Rate 04/30/23 R10.9 - Unspecified abdominal pain Complete Blood Count no Diff 04/30/23 R10.9 - Unspecified abdominal pain Thyroid Stimulating Hormone 04/30/23 R10.9 - Unspecified abdominal pain Ova and Parasite 04/30/23 R10.9 - Unspecified abdominal pain Coding Level of Care Code Est Pt Level 4 (08121) Diagnoses Abdominal pain R10.9
== END 2023-04-30 10:29 | disposition home or self-care (01) ==
PROVIDERS: PCP Nurse Practitioner Family; Visit Provider Internal Medicine
DX: R10.9 Unspecified abdominal pain (principal)
CPT/HCPCS: 99214

== ENCOUNTER 2023-04-30 09:58 | Outpatient (REF) | payer OTHER, SELFPAY ==
[2023-04-30 13:46] LABS: Hematocrit 39.8 % (37.0-47.0); Hemoglobin 13.3 g/dl (12.0-16.0); Mean Corpuscular HGB Conc 33.4 g/dl (31.0-35.0); Mean Corpuscular Hemoglobin 31.5 pg (27.0-33.0); Mean Corpuscular Volume 94.3 fL (80.0-98.0); Mean Platelet Volume 10.2 fL (9.4-12.3); Platelet Count 278 X10*3/uL (160-400); Red Blood Count 4.22 X10*6/uL (4.20-5.50); Red Cell Distribution Width 12.5 % (11.0-16.0)
[2023-04-30 14:09] LABS: Alanine Aminotransferase 14 U/L (0-31); Albumin Level 4.3 g/dL (3.5-5.0); Alkaline Phosphatase 49 U/L (39-117); Anion Gap 12 (12-20); Aspartate Amino Transferase 20 U/L (5-31); Bilirubin Direct 0.2 mg/dL (0.0-0.5); Bilirubin Total 0.6 mg/dL (0.0-1.0); Blood Urea Nitrogen 13 mg/dL (9-16); Calcium 9.1 mg/dL (8.4-10.2); Carbon Dioxide 25 mmol/L (22-29); Chloride 105 mmol/L (96-108); Cholesterol 208 mg/dL (<200); Estimated Glomerular Filt Rate > 60; Glucose Random 90 mg/dL (60-115); HDL Cholesterol 67 mg/dL (>40); LDL Cholesterol Calculated 107 mg/dL (<100); Potassium 3.6 mmol/L (3.3-5.1); Sodium 138 mmol/L (135-145); Total Protein 7.3 g/dL (6.5-8.0); Triglycerides 173 mg/dL (<150)
[2023-04-30 14:24] LABS: Thyroid Stimulating Hormone 0.29 uIU/mL (0.32-4.0)
[2023-04-30 14:36] LABS: Erythrocyte Sedimentation Rate 6 MM/HR (0-20)
== END 2023-04-30 09:59 | disposition home or self-care (01) ==
LOC: HO.HMGCLDS 09:58
PROVIDERS: Internal Medicine; PCP Nurse Practitioner Family; Visit Provider Nurse Practitioner Family
DX: R10.9 Unspecified abdominal pain (principal)
CPT/HCPCS: 36415; 80048; 80061; 80076; 84443; 85027; 85652

== ENCOUNTER 2023-05-01 10:15 | Outpatient (REF) | payer OTHER, SELFPAY | END 2023-05-01 10:16 | disposition home or self-care (01) | LOC: HO.HMGCLNP 10:15 | PROVIDERS: Visit Provider Internal Medicine | DX: R10.9 Unspecified abdominal pain (principal) | CPT/HCPCS: 87177; 87209 ==

== ENCOUNTER 2023-06-01 09:02 | Outpatient (REF) | payer OTHER, SELFPAY ==
--- NOTE | ~2023-06-01 | US_ITS ---
EXAMINATION: US RETROPERITONEAL LIMITED (RENAL ONLY) CLINICAL INFORMATION: Personal history of urinary calculi. COMPARISON: Ultrasound abdomen complete 06/01/2022 and 01/03/2022. CT abdomen and pelvis 03/01/2021. TECHNIQUE: Real-time imaging of the kidneys. FINDINGS: RIGHT KIDNEY: 12.0 x 3.8 x 5.4 cm (SAG x AP x TRV). The kidney is normal in size, contour, and echogenicity. Renal cortical thickness is normal. No renal calculi or hydronephrosis. 6 mm well-circumscribed echogenic focus in the lower pole cortex, possibly a tiny angiomyolipoma or cortical calcification which is not visible on CT scan from 03/01/2021, but is stable in size when compared to abdominal ultrasound 06/01/2022. LEFT KIDNEY: 11.3 x 5.3 x 5.0 cm (SAG x AP x TRV). The kidney is normal in size, contour, and echogenicity. Renal cortical thickness is normal. No calculi or focal parenchymal lesions. No hydronephrosis. US/US renal BI IMPRESSION: No visible nephrolithiasis. No hydronephrosis.
== END 2023-06-01 09:03 | disposition home or self-care (01) ==
LOC: HO.HMGCX 09:02
PROVIDERS: PCP Nurse Practitioner Family; Visit Provider Urology
DX: Z87.442 Personal history of urinary calculi (principal)
CPT/HCPCS: 76775

== ENCOUNTER 2023-07-31 10:03 | Outpatient (AMB) | payer OTHER, SELFPAY ==
--- NOTE | 2023-07-31 10:10 | MHC.OFFVIS ---
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 Emt P Required: No Information Interpreted: non-clinical & clinical Director Correctional Agency: Director Correctional Agency Present (Aidyn) Allergies amoxicillin [AMOXICILLIN] Allergy (Unknown, Verified 07/31/23 10:15) HIVES Penicillins [PENICILLINS] Allergy (Unknown, Verified 07/31/23 10:15) HIVES Sulfa (Sulfonamide Antibiotics) Adverse Reaction (Unknown, Verified 07/31/23 10:15) vomiting cymbalta Adverse Reaction (Severe, Uncoded 07/31/23 10:15) Hallucinations Is last menstrual period known: Yes Last menstrual period: 07/10/23 Post menopausal: No HPI Comments Details: She is a premenopausal woman presenting for annual examination. Doing well with no concerns. She tries to eat healthy and stays active with exercise-walks. Regular monthly menses. Uses condoms for control. Currently is sexually active. She denies vaginal itching and irritation. STI screening offered; she declines. Denies family history of breast, ovarian or colon cancer. Last pap smear 2021, negative. Mammogram: 2022. [facility] Medical History Breast pain, right Breast tenderness in female Fibroid Pelvic pain Right ovarian cyst Angiolipoma of kidney History of kidney stones Hearing loss of left ear PTSD (post-traumatic stress disorder) Depression with anxiety Kidney stones Surgical History History of cystoscopy History of ear surgery Family History Maternal Uncle Substance use disorder Mother Mental health disorder Social History (Updated 07/31/23 @ 10:32 by Genia Mendez CNM) Household Members: Spouse and Children Housing: Condominium Are you a primary landcare facilitator to a significant other at home: No Do you presently have visiting nurse or other home services: No Alcohol intake: current Alcohol intake frequency: a few times a week Patient Tobacco Use Status: Former Tobacco user e-Cigarette/Vaping Use: Currently Using Second Hand Smoke Exposure: No Substance Use Type: Painkillers service: No Current occupational status: employed Current occupation: [employer] Current occupational exposures/hazards: Yes Sexual orientation: Straight/Heterosexual Gender identity: Female Cognitive needs: No Hearing needs: Yes (bilateral hearing aids) Vision needs: No Female Reproductive History Menstrual Age of Menarche: 12 Duration of menses: 6-7 days Date of last menstrual period: 07/10/23 control method: condoms Total pregnancies: 5 Full term: 2 Number of Living Children: 2 Ab induced: 1 Ab spontaneous: 2 Date of last pap smear: 06/24/21 (negative) History of abnormal pap smear: No Date of Mammogram: 11/30/22 Review of Systems Const All systems reviewed & are unremarkable except as noted in HPI and below Reports as per HPI Eyes Reports no additional complaints ENT Reports no additional complaints Card Reports no additional complaints Resp Reports no additional complaints GI Reports as per HPI and Reports no additional complaints Reports as per HPI Musc Reports no additional complaints Skin/Breast Reports as per HPI Neuro Reports no additional complaints Psych Reports no additional complaints Endo Reports no additional complaints Jose/Lymph Reports no additional complaints Aller/Immun Reports no additional complaints Physical Exam Vital Signs: Last Vital Signs BP 102/68 07/31/23 10:14 BMI result Body Mass Index 21.7 Const General: cooperative, healthy appearing, no acute distress, well developed and alert Orientation/consciousness: patient oriented x3 HEENT Head: Yes normal to inspection Eyes General: appearance normal, both eyes and all related structures Neck Neck: Yes normal visual inspection Thyroid: Thyroid normal Chest Chest palpation & inspection: normal inspection of the chest and other (no puckering, dimpling, peau de orange, retraction, discharge, masses) Breast/axilla inspection: normal inspection of the breasts Breast/axilla palpation: normal palpation of the breasts Resp Effort & Inspection: normal respiratory effort GI Inspection: Yes normal to inspection Palpation (GI): Soft to palpation Rectal Exam - Female: deferred General: Yes bladder normal to palpation External Female Exam: normal external appearance and normal appearance of the urethra Speculum Exam - Vagina: normal appearance of the vagina, normal palpation and normal vaginal discharge Speculum Exam - Cervix: normal appearance of the cervix and normal palpation Bimanual exam- vagina & uterus: normal bimanual exam, normal palpation, uterine size normal, bladder normal to palpation, normal palpation and non-tender Bimanual Exam- Adnexa, other: no masses Skin General skin exam: no rashes or lesions noted Rashes: no rashes Neuro General: patient oriented x3 Cognition (Neuro): normal cognition Extrem General: Yes normal to inspection Psych Attitude: cooperative Thought process: Normal thought process present Assessment & Plan Assessment & Plan (1) Well woman exam with routine gynecological exam: Code(s): Z01.419 - Encounter for gynecological examination (general) (routine) without abnormal findings Category: Medical Plan: Discussed: Current recommendations for pap smears per ASCCP guidelines. Breast awareness and periodic breast exams. Maintain a healthy lifestyle including a well balanced diet and routine exercise. Use condoms for STI and prevention. Mammogram yearly. Encouraged to stop vaping. Patient verbalizes understanding and agrees to the plan of care. She was given opportunity to ask questions and all questions were answered to the best of my ability. 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 This note is constructed using voice recognition software. While every effort has been made to ensure accuracy, lift operator errors may have been included. Orders: Orders MM tomosynthesis screening BI Today Z12.31 - Encounter for screening mammogram for malignant neoplasm of breast Coding Level of Care Code Est Pt Prev Care 40-64y(63536) Diagnoses Well woman exam with routine gynecological exam Z01.419
[2023-07-31 10:14] VITALS: BP 102/68; BMI 21.7
--- OUTSIDE RECORDS SUMMARY | 2023-08-03 09:45 | XMS_ITS | Continuity of Care Document ---
Author Organization [facility] Address [address] [place] [id number]- Care Team Providers Care Imager Name Role Phone Rajesh BANDA, Gee Curiel Primary Care Physician Encounter [facility] Date(s): 04/06/23 - 04/07/[address] [address]- Encounter Diagnosis Chest pain(Final) - 04/07/23 Discharge Disposition: A-D/C Home Attending Physician: Shree Menjivar MD Admitting Physician: Shree Menjivar MD Referring Physician: Not on Staff, Referring MD Allergies, Adverse Reactions, Alerts Substance Reaction Severity Status penicillin Active Medications Bactrim DS Tab (Prophylaxis) See Instructions, 40, 0, 0, 02/18/08 21:31:44, 2 tablets By Mouth 2 times a day, Print MAICOL Number, ADS OPPTHS, Department [place] [address], ConstantIndicator Start Date: 02/18/08 Status: Ordered Results Radiology Reports * Exam Date Time Procedure Performing Provider Status 04/07/23 12:31 AM US Doppler Ext Lower Venous Right Anu Mcgill; Auth (Verified) Notes: (US Doppler Ext Lower Venous Right) Reason For Exam: Pain in limb;Other: RESULT: US Doppler Ext Lower Venous Right US Doppler Ext Lower Venous Right INDICATION: coming from home, over the past week worsening sob, body aches, chest discomfort. pt endorses h o anxiety but these symptoms will not go away. sob worse at rest.; Reason: Other:; Pain in limb; Clinical Question(s): Thrombosis COMPARISON: None IMAGING TECHNIQUE: Ultrasound of the veins from the groin through the calf was performed using grayscale, color, and spectral Doppler ultrasound assessing for complete compressibility and normal flowcharacteristics. FINDINGS: Common femoral vein: Patent. No thrombosis. Femoral vein: Patent. No thrombosis. Popliteal vein: Patent. No thrombosis. Gastrocnemius veins: The visualized portions are patent without evidence of thrombosis. Peroneal veins: The visualized portions are patent without evidence of thrombosis. Posterior tibial veins: The visualized portions are patent without evidence of thrombosis. Contralateral common femoral vein: Patent. No thrombosis. OTHER FINDINGS: None. IMPRESSION: No evidence of deep venous thrombosis. I have personally reviewed the images and I agree with this report. WSN: [id number] Ordering Physician: Shree Menjivar Dictated By: Bill Eaton MD Dictated Date/Time: 04/07/23 6:03 am Reviewed By: Anushka Crandall MD Signed By: Anushka Crandall MD Signed Date/Time: 04/07/23 6:08 am Transcribed By: NOLA Transcribed Date/Time: 04/07/23 0:42 am * Exam Date Time Procedure Performing Provider Status 04/06/23 10:27 PM Chest 2 Views Frontal and Lat Annalisa Hughes; Auth (Verified) Notes: (Chest 2 Views Frontal and Lat) Reason For Exam: chest pain;Other: RESULT: Chest 2 Views Frontal and Lat Chest 2 Views Frontal and Lat Reason: Other:; chest pain; Clinical Question(s): Pneumonia COMPARISON: None. FINDINGS: LINES AND TUBES: None. LUNGS AND PLEURA: Clear lungs. Normal pulmonary vascularity. No pleural effusion. No pneumothorax. HEART, MEDIASTINUM AND ALEJANDRA: Heart is normal in size. Normal mediastinal and hilar contour. BONES AND SOFT TISSUES: No acute abnormality. IMPRESSION: No acute abnormality. WSN: [id number] Ordering Physician: Shree Menjivar Dictated By: Garfield Eubansk MD Dictated Date/Time: 04/06/23 10:32 p Reviewed By: Garfield Eubanks MD Signed By: Garfield Eubanks MD Signed Date/Time: 04/06/23 10:32 pm Transcribed By: NOLA Transcribed Date/Time: 04/06/23 10:28 pm Vital Signs Most recent to oldest [Reference Range]: 1 2 3 Height 155 cm (04/06/23 11:13 PM) 155 cm (04/06/23 4:29 PM) Weight 49 kg (04/06/23 11:13 PM) 49 kg (04/06/23 4:29 PM) Oxygen Saturation [94-100 %] 100 % (04/07/23 1:24 AM) 98 % (04/06/23 7:50 PM) 100 % (04/06/23 4:29 PM) Pulse Rate [55-90 bpm] 84 bpm (04/07/23 1:24 AM) 95 bpm *H* (04/06/23 7:50 PM) 91 bpm *H* (04/06/23 4:29 PM) Body Mass Index [18.5-24.99 kg/m2] 20.4 kg/m2 (04/06/23 4:29 PM) Blood Pressure [90-138/55-84 mm Hg] 134/90mm Hg (04/07/23:24 AM) 161/97mm Hg *H* (04/06/23 7:50 PM) 145/97mm Hg *H* (04/06/23 4:29 PM) Respiratory Rate [16-30 br/min] 18 br/min (04/07/23:24 AM) 17 br/min (04/06/23 7:50 PM) 17 br/min (04/06/23 4:29 PM) Temperature [96.8-100.4 DegF] 97.7 DegF (04/07/23:24 AM) 98.0 DegF (04/06/23 7:50 PM) 97.5 DegF (04/06/23 4:29 PM) Mode of Delivery (Oxygen) Room air (04/07/23 1:24 AM) Room air (04/06/23 7:50 PM) Room air (04/06/23 4:29 PM) Blood pressure sites Arm, left (04/07/23:24 AM) Arm, left (04/06/23 7:50 PM) Arm, right (04/06/23 4:29 PM) Temperature Route Oral (04/07/23 1:24 AM) Oral (04/06/23 7:50 PM) Oral (04/06/23 4:29 PM) Dry Weight 49 kg (04/06/23 11:13 PM) 49 kg (04/06/23 4:29 PM) Weight Obtained Via Standing scale (04/06/23 4:29 PM) Dry Weight Obtained Via Standing scale (04/06/23 4:29 PM) EKG study * Event Display: ECG 12-Lead Authored Date: Please click on pdf link to open report * Event Display: ECG 12-Lead Authored Date: Ventricular Rate: 77 BPM Atrial Rate: 77 BPM P-R Interval: 134 ms QRS Duration: 80 ms Q-T Interval: 400 ms QTC Calculation(Bazett): 452 ms P [place]: 79 degrees R [place]: 86 degrees T [place]: 58 degrees Normal sinus rhythm Septal infarct , age undetermined Abnormal ECG No previous ECGs available Confirmed by JL VALENTINO MD ([id number]) on 04/07/2023 1:32:06 PM [place]: JL VALENTINO MD Note * Iris BANDA, Britt Naik: PERFORM Event Display: Patient Education Leaflets Authored Date: Shortness of Breath (Dyspnea) ?? [id number] Shortness of Breath (Dyspnea) Shortness of breath is the feeling that you can't catch your breath or get enough air. It's also known as dyspnea. Dyspnea can be caused by many different conditions. They include: ??? Acute asthma attack ??? Worsening of chronic lung diseases such as chronic bronchitis and emphysema (COPD) ??? Heart failure. This is when weak heart muscle causes extra fluid to collect in the lungs. ??? Panic attacks or anxiety. Fear can cause rapid breathing (hyperventilation). ??? Pneumonia, or an infection in the lung tissue ??? Exposure to toxic substances, fumes, smoke, or certain medicines ??? Blood clot in the lung (pulmonary embolism). This is often from a piece of blood clot in adeep vein of the leg (deep vein thrombosis) that breaks off and travels to the lungs. ??? Heart attack or heart-related chest pain (angina) ??? Anemia ??? Collapsed lung (pneumothorax) ??? Dehydration ??? Based on your visit today, the exact cause of your shortness of breath is not certain. Your tests don???t show any of the serious causes of dyspnea. You may need other tests to find out if you have aserious problem. It???s important to watch for any new symptoms or symptoms that get worse. Follow up with your healthcare provider as directed. Home care Follow these tips to take care of yourself at home: ??? When your symptoms are better, go back to your usual activities. ??? If you smoke, you should stop. Join a quit-smoking program or ask your healthcare provider for help. ??? Eat a healthy diet and get plenty of sleep. ??? Get regular exercise.Talk with your healthcare provider before starting to exercise, especially if you have other medical problems. ??? Discuss with your healthcare provider about cutting down on the amount of caffeine and stimulants you consume. ?? Follow-up care Follow up with your healthcare provider, or as advised. If tests were done, you will be told if your treatment needs to be changed. You can call as directed for the results. If an X-ray was taken, you will be told of any new findings that may affect your care. ?? Call 911 Shortness of breath may be a sign of a serious medical problem. For example, it may be a problem with your heart or lungs. Call 911 if you have worsening shortness of breath or trouble breathing, especially with any of the symptoms below: ??? Shortness of breath or wheezing ??? Confusion or difficulty waking ??? Fainting or loss of consciousness ??? Fast or irregular heartbeat ??? Coughing up blood ??? Unusual pain in your chest, arm, shoulder, neck, or upper back ??? Unusual sweating ??? Feeling of doom ??? Lips or skin looks blue, purple, or suero in color ??? Feel dizzy ?? When to seek medical advice Call your healthcare provider right away if any of these occur: ??? Redness, pain or swelling in your leg, arm, or other body area ??? Swelling in both legs or ankles ??? Fast weight gain ??? Weakness ??? Fever of 100.4??F (38??C) or higher, or as directed by your healthcare provider ?? Last Reviewed Date: 2021 ?? [id number] [employer]. All rights reserved. This information is not intended as a substitute for professional medical care. Always follow your healthcare professional's instructions. ?? * Iris BANDA, Britt Naik: PERFORM Event Display: Patient Education Leaflets Authored Date: [id number] Uncertain Causes of Chest Pain ?? [id number] Uncertain Causes of Chest Pain Chest pain can happen for a number of reasons. Sometimes the cause can't be determined. If your??condition does not seem serious, and your pain does not appear to be coming from your heart, your healthcare provider may recommend watching it closely. Sometimes the signs of a serious problem take more time to appear. Many problems not related to your heart can cause chest pain. These include: ??? Musculoskeletal. Costochondritis is an inflammation of the tissues around the ribs that can occur from trauma or overuse injuries, or a strain of the muscles of the chest wall. ??? Respiratory. Pneumonia, collapsed lung (pneumothorax), or inflammation of the lining of the chest and lungs (pleurisy). ??? Gastrointestinal. Esophageal reflux, heartburn, ulcers, or gallbladder disease. ??? Anxiety and panic disorders ??? Nerve compression and inflammation ??? Rare problems such as aortic aneurysm or aortic dissection (a swelling of the large artery coming out of the heart or a tear in the wall of the artery), or pulmonary embolism (a blood clot in the lungs). Home care After your visit, follow these recommendations: ??? Rest today and avoid strenuous activity. ??? Take any prescribed medicine as directed. ??? Be aware of any recurrent chest pain and notice any changes ?? Follow-up care Follow up with your healthcare provider if you don't start to feel better within 24 hours, or as advised. ?? Call 911 Call 911 if any of these occur: ??? A change in the type of pain: if it feels different, becomes more severe, lasts longer, or begins to spread into your shoulder, arm, neck, jaw or back ??? Shortness of breath or increased pain with breathing ??? Weakness, dizziness, or fainting ??? Rapid heartbeat ??? Crushing sensation in your chest ??? Coughing up more than a small amount of blood. ?? When to seek medical advice Call your healthcare provider right away if any of the following occur: ??? Cough with dark coloredsputum (phlegm) or small amount of blood ??? Fever of 100.4??F??(38??C) or higher, or as directed by your healthcare provider ??? Swelling, pain or redness in one leg ?? Last Reviewed Date: 2021 ?? [id number] [employer]. All rights reserved. This information is not intended as a substitute for professional medical care. Always follow your healthcare professional's instructions. ?? Patient Care team information Care Team Personnel Name: Gee Mena NP Position: Reference Physician Member Role: PCP Address: Address: [address] [place] [address]- Care Team Related Persons Name: RUBI PALM Address: [place] [address] Name: LEN PALM Address: [place] [address]
== END 2023-07-31 10:40 | disposition home or self-care (01) ==
LOC: HO.HWS 10:03
PROVIDERS: PCP Nurse Practitioner Family; Visit Provider Advanced Practice Midwife
DX: Z01.419 Encounter for gynecological examination (general) (routine) without abnormal findings (principal)
CPT/HCPCS: 99396

== ENCOUNTER → 2023-07-31 10:03 | Outpatient (BNVA) | payer OTHER, SELFPAY | PROVIDERS: PCP Nurse Practitioner Family; Visit Provider Advanced Practice Midwife | DX: Z01.419 Encounter for gynecological examination (general) (routine) without abnormal findings (principal) | CPT/HCPCS: 99396 ==

== ENCOUNTER 2023-10-02 09:26 | Outpatient (REF) | payer OTHER, SELFPAY ==
--- NOTE | ~2023-10-02 | MM_ITS ---
EXAMINATION: MM SCREENING DIGITAL BREAST TOMOSYNTHESIS, BILATERAL CLINICAL INFORMATION: Screening. Asymptomatic. COMPARISON: Mammography: This study is compared with prior exams dating back to 2021. TECHNIQUE: Digital breast tomosynthesis is performed in both the craniocaudal and mediolateral oblique views along with computer-aided detection (CAD). Synthesized 2D images are generated from the tomosynthesis. FINDINGS: The breasts are extremely dense, which lowers the sensitivity of mammography (ACR BI-RADS breast composition Category d). There are no significant masses, abnormal calcifications, or other abnormalities. MM/MM tomosynthesis screening BI IMPRESSION: No mammographic evidence of malignancy. ASSESSMENT: BI-RADS BI-RADS 1 - Negative RECOMMENDATION: Routine annual mammography screening. 1 year F/U This examination should not preclude the clinical evaluation of a suspicious palpable abnormality. This patient's information was entered into a reminder system with a target due date for their next mammogram.
== END 2023-10-02 09:27 | disposition home or self-care (01) ==
LOC: HO.MAMMO 09:26
PROVIDERS: PCP Nurse Practitioner Family; Visit Provider Advanced Practice Midwife
DX: Z12.31 Encounter for screening mammogram for malignant neoplasm of breast (principal)
CPT/HCPCS: 77063; 77067

== ENCOUNTER → 2023-10-02 09:30 | Outpatient (BNV) | payer OTHER, SELFPAY | PROVIDERS: PCP Nurse Practitioner Family; Visit Provider Radiology Diagnostic Radiology | DX: Z12.31 Encounter for screening mammogram for malignant neoplasm of breast (principal) | CPT/HCPCS: 77063; 77067 ==

== ENCOUNTER 2023-11-19 08:55 | Outpatient (AMB) | payer OTHER, SELFPAY ==
--- NOTE | 2023-11-19 08:56 | A.OFFVIS_ITS ---
Intake Visit Reasons: I missed my last follow up appointment Intake Note: Patient is present for missed f/u appt Urology Medication:none Antibiotic Allergy:amoxicillin, penicillin, sulfa Blood Thinner:none Bucket Wash Operator Required: No Allergies amoxicillin [AMOXICILLIN] Allergy (Unknown, Verified 11/19/23 08:57) HIVES Penicillins [PENICILLINS] Allergy (Unknown, Verified 11/19/23 08:57) HIVES Sulfa (Sulfonamide Antibiotics) Adverse Reaction (Unknown, Verified 11/19/23 08:57) vomiting cymbalta Adverse Reaction (Severe, Uncoded 11/19/23 08:57) Hallucinations Medication List - Last Reconciled 11/19/23 by Syed Rushing MD levocetirizine (Xyzal) 5 mg PO DAILY multivitamin (Daily Multi-Vitamin tablet) 1 tab PO DAILY HPI Comments Details: 11/19/2023--Taryn is here in follow-up. She has been treated for interstitial cystitis. 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 Repeat imaging May, right kidney angiomyolipoma stable. No renal calculi visualized. The patient states her bladder symptoms in regards to pain are stable she will get occasional urinary leakage. She is not interested in any medication at this time. Review of chart: 08/14/2022--Taryn is a 41-year-old female who presents to the office s/p cystoscopy hydrodistention. The patient underwent cystoscopy hydrodistention on 07/04/22. Cystoscopy findings----Bladder capacity 700 milliliters. Mild glomerulations on several quadrants of the bladder consistent with cystitis. I discussed with the patient that Interstitial cystitis is a chronic condition in which the lining of the bladder is inflamed and symptoms may include bladder pressure, burning with urination, urgency or pelvic pain. The exact cause for IC is not known, but likely factors that contribute would be factors that affect the protective lining of the bladder allowing urine to irritate the bladder wall. Contributing factors may include Recurrent UTI's, autoimmune reaction, heredity or allergy. Treatment includes lifestyle changes including diet modification, anti-spasm and anti-histamine medications. 06/21/22--Taryn is a 41-year-old female patient who presents to the office for nephrolithiasis follow-up. The patient was seen last by Dr. Biggs on 12/15/20. h/o of kidney stones. The patient is currently taking vitamin B6 100 mg daily and states she consumes adequate amount of water.She states she was in the ER in February 2021 for pain in the pelvis. She c/o's constant pelvic pain. I have reviewed the CT results at ED visit, 2mm Left kidney stone States having fibroids in the uterus and would be re-evaluated after 6 weeks with imaging. States having urinary leakage and occasional bladder pain. States having family history of renal lesion in mother. Evaluation today: blood: negative, leukocytes: negative. Abdomen US results reviewed?06/01/22-- Suggestive of 6 x 5 mm echogenic lesion in the lower pole of the right kidney and a 4 mm left kidney stone which was also visualized on the previous abdominal US--01/03/22. I have discussed echogenic lesion is suggestive of renal angiomyolipoma, will get MRI for further eval. Stone analysis--05-13-18--calcium oxalate- 50% and carbonate apatite- 50%. Plan:Pelvic Pain. Cystoscopy hydrodistension possible bladder biopsy discussed to be scheduled. Consent was obtained Right renal echogenic lesion. MRI abdomen prior was ordered. Follow-up in 4 months. [facility] Medical History Breast pain, right Breast tenderness in female Fibroid Pelvic pain Right ovarian cyst Angiolipoma of kidney History of kidney stones Hearing loss of left ear PTSD (post-traumatic stress disorder) Depression with anxiety Kidney stones Surgical History History of cystoscopy History of ear surgery Family History Maternal Uncle Substance use disorder Mother Mental health disorder Social History Household Members: Spouse and Children Housing: Condominium Are you a primary lead caregiver to a significant other at home: No Do you presently have visiting nurse or other home services: No Alcohol intake: current Alcohol intake frequency: a few times a week Patient Tobacco Use Status: Former Tobacco user e-Cigarette/Vaping Use: Currently Using Second Hand Smoke Exposure: No Substance Use Type: Painkillers service: No Current occupational status: employed Current occupation: [employer] Current occupational exposures/hazards: Yes Sexual orientation: Straight/Heterosexual Gender identity: Female Cognitive needs: No Hearing needs: Yes (bilateral hearing aids) Vision needs: No Female Reproductive History Menstrual Age of Menarche: 12 Review of Systems Const All systems reviewed & are unremarkable except as noted in HPI and below Reports no additional complaints Eyes Reports no additional complaints ENT Reports no additional complaints Card Reports no additional complaints Resp Reports no additional complaints GI Reports no additional complaints Reports as per HPI Musc Reports no additional complaints Skin/Breast Reports system reviewed and no additional complaints, except as documented Neuro Reports no additional complaints Psych Reports no additional complaints Endo Reports no additional complaints Jose/Lymph Reports no additional complaints Aller/Immun Reports no additional complaints Results AMB Urinalysis, Automated UA Leukoctes 0 Mary Kay/uL Last Edit by TORY Sanches on 11/19/23 09:07 UA Nitrite Negative Last Edit by TORY Sanches on 11/19/23 09:07 UA Urobilinogen 0.2 mg/dL Last Edit by Caitlyn Smith CCM on 11/19/23 09:0 7 UA Protein 0 mg/dL Last Edit by TORY Sanches on 11/19/23 09:07 UA pH 6.0 Last Edit by Caitlyn Smith CCM on 11/19/23 09:07 UA Blood 0 Armand/uL Last Edit by TORY Sanches on 11/19/23 09:07 UA Specific [place] 1.025 Last Edit by TORY Sanches on 11/19/23 09: 07 UA Ketone Negative Last Edit by TORY Sanches on 11/19/23 09:07 UA Bilirubin 0 mg/dL Last Edit by TORY Sanches on 11/19/23 09:07 UA Glucose 0 mg/dL Last Edit by Caitlyn Smith CCM on 11/19/23 09:07 Results Reviewed Results Reviewed: Date of Service: 06/01/23 EXAMINATION: US RETROPERITONEAL LIMITED (RENAL ONLY) CLINICAL INFORMATION: Personal history of urinary calculi. COMPARISON: Ultrasound abdomen complete 06/01/2022 and 01/03/2022. CT abdomen and pelvis 03/01/2021. TECHNIQUE: Real-time imaging of the kidneys. FINDINGS: RIGHT KIDNEY: 12.0 x 3.8 x 5.4 cm (SAG x AP x TRV). The kidney is normal in size, contour, and echogenicity. Renal cortical thickness is normal. No renal calculi or hydronephrosis. 6 mm well-circumscribed echogenic focus in the lower pole cortex, possibly a tiny angiomyolipoma or cortical calcification which is not visible on CT scan from 03/01/2021, but is stable in size when compared to abdominal ultrasound 06/01/2022. LEFT KIDNEY: 11.3 x 5.3 x 5.0 cm (SAG x AP x TRV). The kidney is normal in size, contour, and echogenicity. Renal cortical thickness is normal. No calculi or focal parenchymal lesions. No hydronephrosis. IMPRESSION: No visible nephrolithiasis. No hydronephrosis. Date of Service: 06/01/22 EXAMINATION: US ABDOMEN COMPLETE CLINICAL INFORMATION: Abdominal pain. COMPARISON: Ultrasound abdomen complete 01/03/2022. Renal ultrasound 11/23/2021. CT abdomen and pelvis 03/01/2021. TECHNIQUE: Real-time imaging of the abdominal viscera. FINDINGS: PANCREAS: Normal. ABDOMINAL AORTA: The proximal, mid, and distal segments are normal in caliber. INFERIOR VENA CAVA: Visualized portions are normal. LIVER: Normal. The liver is normal in size. The liver contour is normal. Parenchymal echogenicity is normal. No focal hepatic lesion. There is no intrahepatic biliary duct dilatation seen. GALLBLADDER: Normal. The gallbladder is physiologically distended without evidence of stones, sludge, polyps, wall thickening or pericholecystic fluid. COMMON BILE DUCT: Normal in caliber measuring 0.3 cm in diameter. RIGHT KIDNEY: 5 x 6 mm echogenic lesion in the lower pole. This was seen on prior ultrasounds and may be minimally increased in size. No definite corresponding abnormality is appreciated on CT scan. No hydronephrosis or renal calculi. The kidney measures 12.4 cm in maximum dimension. LEFT KIDNEY: 4 mm stone in the lower pole. No hydronephrosis or focal parenchymal lesions. The kidney measures 10.5 cm in maximum dimension. SPLEEN: Normal. The spleen measures 9.6 cm in maximum dimension. FREE FLUID: None. IMPRESSION: 6 x 5 mm echogenic lesion in the lower pole the right kidney. Appearance is suggestive of an AML and may be minimally increased in size. This finding is similar to previous ultrasounds but not seen by CT. Small left renal stone. Assessment & Plan Assessment & Plan (1) Renal angiomyolipoma: Code(s): D17.71 - Benign lipomatous neoplasm of kidney Category: Medical (2) Interstitial cystitis: Code(s): N30.10 - Interstitial cystitis (chronic) without hematuria Category: Medical (3) History of kidney stones: Code(s): Z87.442 - Personal history of urinary calculi Category: Medical Plan IC symptoms stable Follow-up one year Renal angiomyolipoma - Renal US prior. Instructed to call if experiencing any UTI symptoms in the interim. Orders: Orders AMB Urinalysis Automated Today Z13.9 - Encounter for screening, unspecified US renal BI 10 Months D17.71 - Benign lipomatous neoplasm of kidney Patient Instructions: The patient had an opportunity to ask questions regarding treatment plan. The patient expressed understanding and agreement with the above treatment plan. The patient is aware they should contact our office by phone for worsening of their current condition or the appearance of new symptoms. Compliance is encouraged with any medications and followup testing that is ordered. It is a privilege to be allowed the opportunity to participate in the urologic care of your patient. If you have any questions or concerns regarding treatment for the above conditions please do not hesitate to contact me. The office telephone contact is [phone]. This note is constructed in part using voice recognition software. While every effort has been made to ensure accuracy subcontract administrator errors may have been included. Yours sincerely, Syed Rushing MD Coding Level of Care Code Est Pt Level 4 (94651) Diagnoses Renal angiomyolipoma D17.71 Interstitial cystitis N30.10 History of kidney stones Z87.442
== END 2023-11-19 09:23 | disposition home or self-care (01) ==
PROVIDERS: PCP Nurse Practitioner Family; Visit Provider Urology
DX: D17.71 Benign lipomatous neoplasm of kidney (principal); N30.10 Interstitial cystitis (chronic) without hematuria; Z87.442 Personal history of urinary calculi; Z13.9 Encounter for screening, unspecified
CPT/HCPCS: 99214

== ENCOUNTER → 2023-11-19 08:55 | Outpatient (BNVA) | payer OTHER, SELFPAY | PROVIDERS: PCP Nurse Practitioner Family; Visit Provider Urology | DX: D17.71 Benign lipomatous neoplasm of kidney (principal); N30.10 Interstitial cystitis (chronic) without hematuria; Z87.442 Personal history of urinary calculi | CPT/HCPCS: 81003; 99212 ==

== ENCOUNTER 2023-11-20 08:59 | Outpatient (REF) | payer OTHER, SELFPAY ==
[2023-11-20 13:13] LABS: Appearance Urine Turbid; Color Urine Yellow; Glucose Urine UA Negative (Negative); Leukocyte Esterase Urine Negative (Negative); Nitrite Urine Negative (Negative); PH 7.5 (5.0-9.0); Specific Gravity - Urine 1.015 (1.005-1.025); Urine Blood Negative (Negative); Urine Ketones Negative (Negative); Urine Protein Negative (Neg-Trace)
[2023-11-20 13:14] LABS: MANUAL DIFF FLAG NO
[2023-11-20 13:33] LABS: Basophils Percent Auto 0.5 % (0-2); Eosinophils Absolute Auto 0.1 X10*3/uL (0.0-0.4); Eosinophils Percent Auto 0.9 % (0-4); Hematocrit 40.5 % (37.0-47.0); Hemoglobin 13.6 g/dl (12.0-16.0); Imm Gran Abs Auto 0.03 X10*3/uL (0.00-0.03); Imm Gran Pct Auto 0.3 % (0.0-0.4); Lymphocytes Absolute Auto 1.5 X10*3/uL (1.2-4.9); Lymphocytes Percent Auto 17.7 % (20-40); Mean Corpuscular HGB Conc 33.6 g/dl (31.0-35.0); Mean Corpuscular Volume 95.3 fL (80.0-98.0); Mean Platelet Volume 10.3 fL (9.4-12.3); Monocytes Absolute Auto 0.6 X10*3/uL (0.1-1.2); Monocytes Percent Auto 6.5 % (2-11); Neutrophils Absolute Auto 6.4 x10*3/uL (2.0-8.3); Neutrophils Percent Auto 74.1 % (45-73); Platelet Count 308 X10*3/uL (160-400); Red Blood Count 4.25 X10*6/uL (4.20-5.50); Red Cell Distribution Width 11.9 % (11.0-16.0); White Blood Count 8.6 X10*3/uL (4.8-10.8)
[2023-11-20 14:07] LABS: Alanine Aminotransferase 15 U/L (0-31); Albumin Level 4.3 g/dL (3.5-5.0); Alkaline Phosphatase 45 U/L (39-117); Anion Gap 7 (12-20); Aspartate Amino Transferase 20 U/L (5-31); Bilirubin Total 0.7 mg/dL (0.0-1.0); Blood Urea Nitrogen 16 mg/dL (9-16); Calcium 9.1 mg/dL (8.4-10.2); Carbon Dioxide 28 mmol/L (22-29); Chloride 108 mmol/L (96-108); Cholesterol 200 mg/dL (<200); Estimated Glomerular Filt Rate > 60; Glucose Fasting 105 mg/dL (60-99); HDL Cholesterol 68 mg/dL (>40); LDL Cholesterol Calculated 106 mg/dL (<100); Potassium 4.4 mmol/L (3.3-5.1); Sodium 139 mmol/L (135-145); Total Protein 7.1 g/dL (6.5-8.0); Triglycerides 134 mg/dL (<150)
[2023-11-20 14:08] LABS: TSH reflex Free T4 0.54 uIU/mL (0.32-4.0)
== END 2023-11-20 09:00 | disposition home or self-care (01) ==
LOC: HO.HMGCLDS 08:59
PROVIDERS: PCP Nurse Practitioner Family; Visit Provider Nurse Practitioner Family
DX: Z00.00 Encounter for general adult medical examination without abnormal findings (principal)
CPT/HCPCS: 36415; 80053; 80061; 81003; 84443; 85025

== ENCOUNTER 2023-11-29 13:07 | Outpatient (AMB) | payer OTHER, SELFPAY ==
[2023-11-29 13:10] VITALS: BP 110/70; PULSE 83; O2SAT 98; BMI 20.8
--- NOTE | 2023-11-29 13:10 | MHC.PC.OV ---
Vital Signs 11/29/23 13:10 Height 5 ft 1 in Weight 110 lb BMI 20.8 BP 110/70 Blood Pressure Location Rt brachial Position Sitting Pulse 83 Pulse Source Pulse Oximeter Pulse Oximetry (%) 98 Oxygen Delivery Method Room Air Intake Visit Reasons: labs results Intake Note: pt is here for follow up regarding labs Allergies amoxicillin [AMOXICILLIN] Allergy (Unknown, Verified 11/29/23 13:11) HIVES Penicillins [PENICILLINS] Allergy (Unknown, Verified 11/29/23 13:11) HIVES Sulfa (Sulfonamide Antibiotics) Adverse Reaction (Unknown, Verified 11/29/23 13:11) vomiting cymbalta Adverse Reaction (Severe, Uncoded 11/19/23 08:57) Hallucinations Medication List - Last Reconciled 11/29/23 by GILDA Lui levocetirizine (Xyzal) 5 mg PO DAILY multivitamin (Daily Multi-Vitamin tablet) 1 tab PO DAILY Tobacco use date assessed: 11/29/23 Dental Screening Dental Screen Date: 11/29/23 Did you have a dental visit in the last 12 months?: Yes Did you have a dental problem in the last 6 months where you did not have access to dental care?: No Was dental information given to patient?: Patient has dentist HPI labs results HPI Details Pt c/o weight loss. She has lost 5 pounds since her last appointment in July. She reports her appetite is less. Pt has a family hx of kidney cancer metastasized to pancreas (paternal uncle). Will order labs, stool studies, and chest XR. Encouraged pt to monitor her caloric intake. Mammo and pap smear are up to date. Pt does vape, used to smoke. She does smoke marijuana. Pt has a family hx of thyroid cancer. Her TSH was on the lower end of normal. Will order US. Denies fever, chills, and dizziness. Pt is anxious, does report being stressed, denies any drug use [facility] Medical History Breast pain, right Breast tenderness in female Fibroid Pelvic pain Right ovarian cyst Angiolipoma of kidney History of kidney stones Hearing loss of left ear PTSD (post-traumatic stress disorder) Depression with anxiety Kidney stones Surgical History History of cystoscopy History of ear surgery Family History Maternal Uncle Substance use disorder Mother Mental health disorder Social History Household Members: Spouse and Children Housing: Condominium Are you a primary home health care provider to a significant other at home: No Do you presently have visiting nurse or other home services: No Alcohol intake: current Alcohol intake frequency: a few times a week Patient Tobacco Use Status: Former Tobacco user e-Cigarette/Vaping Use: Currently Using Second Hand Smoke Exposure: No Substance Use Type: Painkillers service: No Current occupational status: employed Current occupation: [employer] Current occupational exposures/hazards: Yes Sexual orientation: Straight/Heterosexual Gender identity: Female Cognitive needs: No Hearing needs: Yes (bilateral hearing aids) Vision needs: No Female Reproductive History Menstrual Age of Menarche: 12 Questionnaire PHQ-9 Over the last 2 weeks, how often have you been bothered by any of the following problems? 40253 - PHQ-9 Billing: Patient declined-do not bill Source: Developed by Drs. Nadeem Parham, Latesha Eaton, Doc Green and colleagues, with an educational azul from [email or web address]. Thrive Questionnaire Date Thrive assessed: 11/29/23 I am a: Patient What is your living situation today?: I have a steady place to live Within the past 12 months, did the food you bought not last and you didn't have the money to get more?: I choose not to answer this question Within the past 12 months, did you worry whether your food would run out before you got money to buy more?: I choose not to answer this question Do you have trouble paying for medicines?: I choose not to answer this question Do you have trouble getting transportation to medical appointments?: I choose not to answer this question Do you have trouble paying your heating and electricity bill?: I choose not to answer this question Do you have trouble taking care of your child, family member or friend?: I choose not to answer this question Do you have trouble with day-to-day activities such as bathing, preparing meals, shopping, managing finances, etc.?: I choose not to answer this question Are you interested in more education?: I choose not to answer this question Please select the resources that you would like help with: None Currently or been in a relationship where the following occur: I choose not to answer THRIVE Score: 0 AUDIT C Alcohol Use Questionnaire (AUDIT-C) 1. How often do you have a drink containing alcohol?: 2-3 times a week 2. How many drinks containing alcohol do you have on a typical day when you are drinking?: 1 or 2 3. How often do you have six or more drinks on one occasion?: Never Total Score: 3 Score Reviewed/Action Taken: Yes MATHIEU-7 AMB Questionnaire MATHIEU-7 Date MATHIEU - 7 assessed: 11/29/23 Feeling nervous, anxious, or on edge: 1 = Several days Not being able to stop or control worryin = Not at all Worrying too much about different things: 0 = Not at all Trouble relaxin = Not at all Being so restless that it is hard to sit still: 0 = Not at all Becoming easily annoyed or irritable: 0 = Not at all Feeling afraid as if something awful might happen: 0 = Not at all Total MATHIEU-7 score (0-4 normal; 5-9 mild; 10-14 moderate; 15-21 severe): 1 Source: Developed by Drs. Nadeem Parham, Latesha Eaton, Doc Green and colleagues, with an educational azul from [email or web address]. MATHIEU-7 Assessment Billing MATHIEU-7 Assessment Tool: MATHIEU-7 Assessment 22449 Review of Systems Const Reports as per HPI Physical exam (Primary Care) Vital Signs: Last Vital Signs Pulse 83 11/29/23 13:10 BP 110/70 11/29/23 13:10 Pulse Ox 98 11/29/23 13:10 Oxygen Delivery Method Room Air 11/29/23 13:10 BMI result Body Mass Index 20.8 Tobacco/Smoking Status: Tobacco use Status Tobacco use date assessed 11/29/23 11/29/23 13:14 Patient Tobacco Use Status Former Tobacco user 11/29/23 13:14 e-Cigarette/Vaping Use Currently Using 11/29/23 13:14 Thrive Assessment: Date of Thrive Assessment Date Thrive assessed 11/29/23 11/29/23 13:14 Currently or been in a relationship where the following occur: I choose not to answer Const Other: skinny stature General: cooperative Orientation/consciousness: patient oriented x3 Neck Neck: Yes no lymphadenopathy Resp Effort & Inspection: normal respiratory effort Auscultation: clear to auscultation bilaterally Cardio Rate: regular rate Rhythm: regular rhythm Heart sounds: S1 normal heart sound present and S2 normal heart sound present Neuro General: patient oriented x3 Psych Appearance: grossly normal Mental Status: mental status grossly normal Speech and movement: Normal speech and movement present Affect: normal affect Attitude: cooperative Thought process: Normal thought process present Thought content: Normal thought content present Insight: Good insight present (Psych) Judgement: Good judgement present (Psych) Coding Level of Care Code Est Pt Level 3 (57052) Diagnoses Family history of thyroid cancer Z80.8 Weight loss R63.4 Additional Codes MATHIEU-7 Assessment Billing - MATHIEU-7 Assessment Tool: MATHIEU-7 Assessment 17848 ([id number]) Assessment & Plan Assessment & Plan (1) Family history of thyroid cancer: Code(s): Z80.8 - Family history of malignant neoplasm of other organs or systems Category: Medical Plan: us ordered (2) Weight loss: Code(s): R63.4 - Abnormal weight loss Category: Medical Plan: screenings are up to date, will order labs+ FIT test, and chest XR Plan The patient agreed to the use of a medical numerical control operator for this encounter. Scribed for GILDA Moreau by Tere Richards medical numerical control operator, on 11/29/2023 at 13:20 EST. Orders: Orders Erythrocyte Sedimentation Rate Today R63.4 - Abnormal weight loss Hepatitis A,B,C Profile Today R63.4 - Abnormal weight loss HIV Ab/Ag Today R63.4 - Abnormal weight loss TSH reflex Free T4 Today R63.4 - Abnormal weight loss Carbohydrate Antigen 19-9 Today R63.4 - Abnormal weight loss Complete Blood Count Auto Diff Today R63.4 - Abnormal weight loss US thyroid Today Z80.8 - Family history of malignant neoplasm of other organs or systems C Reactive Protein Today R63.4 - Abnormal weight loss XR chest 2V Today R63.4 - Abnormal weight loss Hemoglobin A1c Today R63.4 - Abnormal weight loss FITS Today R63.4 - Abnormal weight loss
== END 2023-11-29 16:52 | disposition home or self-care (01) ==
PROVIDERS: PCP Nurse Practitioner Family; Visit Provider Nurse Practitioner Family
DX: Z80.8 Family history of malignant neoplasm of other organs or systems (principal); R63.4 Abnormal weight loss

== ENCOUNTER → 2023-11-29 13:07 | Outpatient (BNVA) | payer OTHER, SELFPAY | PROVIDERS: PCP Nurse Practitioner Family; Visit Provider Nurse Practitioner Family | DX: R63.4 Abnormal weight loss (principal); Z80.8 Family history of malignant neoplasm of other organs or systems | CPT/HCPCS: 96127; 99212 ==

== ENCOUNTER 2023-12-13 09:57 | Outpatient (REF) | payer OTHER, SELFPAY ==
[2023-12-13 13:19] LABS: MANUAL DIFF FLAG NO
[2023-12-13 13:53] LABS: Basophils Percent Auto 0.7 % (0-2); Eosinophils Absolute Auto 0.1 X10*3/uL (0.0-0.4); Eosinophils Percent Auto 1.9 % (0-4); Estimated Average Glucose 97 mg/dL; Hematocrit 40.5 % (37.0-47.0); Hemoglobin 13.3 g/dl (12.0-16.0); Hemoglobin A1C 104.4824 umol/L; Imm Gran Abs Auto 0.01 X10*3/uL (0.00-0.03); Imm Gran Pct Auto 0.2 % (0.0-0.4); Lymphocytes Absolute Auto 1.6 X10*3/uL (1.2-4.9); Lymphocytes Percent Auto 28.2 % (20-40); Mean Corpuscular HGB Conc 32.8 g/dl (31.0-35.0); Mean Corpuscular Hemoglobin 31.7 pg (27.0-33.0); Mean Corpuscular Volume 96.7 fL (80.0-98.0); Mean Platelet Volume 10.4 fL (9.4-12.3); Monocytes Absolute Auto 0.5 X10*3/uL (0.1-1.2); Monocytes Percent Auto 8.1 % (2-11); Neutrophils Absolute Auto 3.5 x10*3/uL (2.0-8.3); Neutrophils Percent Auto 60.9 % (45-73); Platelet Count 274 X10*3/uL (160-400); Red Blood Count 4.19 X10*6/uL (4.20-5.50); Red Cell Distribution Width 12.3 % (11.0-16.0); Total Hemoglobin (HGBA1C) 3398.8662 umol/L; White Blood Count 5.7 X10*3/uL (4.8-10.8)
[2023-12-13 14:15] LABS: TSH reflex Free T4 0.72 uIU/mL (0.32-4.0)
[2023-12-13 14:38] LABS: Erythrocyte Sedimentation Rate 3 MM/HR (0-20)
[2023-12-14 08:02] LABS: HBS Num1 91.38 mIU/mL (0-7.99); HBc Num1 0.09 S/CO (0.00-0.79); HBsAGNum1 0.46 S/CO (0.00-0.99); HIV AB/AG Nonreactive (Nonreactive); HIV Num 1 0.04 S/CO (0.00-0.99); Hepatitis A Antibody IgM 0.16 Index (0-0.79); Hepatitis B Core Antibody Nonreactive (Nonreactive); Hepatitis B Surface Antigen Negative (Negative); ~HepC Num1 0.27 S/CO (0.00-0.79); ~Hepatitis A Antibody IgM Nonreactive (Nonreactive); ~Hepatitis B Surface Antibody REACTIVE (Nonreactive); ~Hepatitis C Antibody Nonreactive (Nonreactive)
[2023-12-19 11:48] LABS: Carbohydrate Antigen 19-9 32 U/mL (<34)
== END 2023-12-13 09:58 | disposition home or self-care (01) ==
LOC: HO.HMGCX 09:57
PROVIDERS: PCP Nurse Practitioner Family; Visit Provider Nurse Practitioner Family
DX: Z11.4 Encounter for screening for human immunodeficiency virus [HIV] (principal); R63.4 Abnormal weight loss; Z80.8 Family history of malignant neoplasm of other organs or systems
CPT/HCPCS: 36415; 76536; 83036; 84443; 85025; 85652; 86140; 86301; 86704; 86706; 86709; 86803; 87340; 87389

== ENCOUNTER 2023-12-24 08:55 | Outpatient (AMB) | payer OTHER, SELFPAY ==
--- NOTE | 2023-12-24 09:12 | AM.OFFWIN_ITS ---
Intake Vital Signs 12/24/23 09:15 Weight 117 lb BP 120/80 Blood Pressure Location Lt brachial Position Sitting Pulse 76 Pulse Source Pulse Oximeter Temp 98.1 F Temp Source Oral Pulse Oximetry (%) 98 Oxygen Delivery Method Room Air Intake Visit Reasons: EP Strep? Intake Note: Patient here for sore throat, congestion, bilat ear pain. Patient Tobacco Use Status: Former Tobacco user Allergies amoxicillin [AMOXICILLIN] Allergy (Unknown, Verified 12/24/23 09:15) HIVES Penicillins [PENICILLINS] Allergy (Unknown, Verified 12/24/23 09:15) HIVES Sulfa (Sulfonamide Antibiotics) Adverse Reaction (Unknown, Verified 12/24/23 09:15) vomiting cymbalta Adverse Reaction (Severe, Uncoded 12/24/23 09:15) Hallucinations Do you need a note to return to daycare/school/sports/work: Yes HPI EP Strep? HPI Details This note is constructed using voice recognition software. While every effort has been made to ensure accuracy, odd bundle worker errors may have been included. The patient is a 42 year old female who presents to the clinic today with cough, sore throat, sinus congestion since Sunday. She notes that her children have both been sick, 1 with strep, 1 without. She reports that she had some mild body aches today and subjective fever overnight. She has been taking ibuprofen for her symptoms with good relief. She denies dyspnea. [facility] Medical History Breast pain, right Breast tenderness in female Fibroid Pelvic pain Right ovarian cyst Angiolipoma of kidney History of kidney stones Hearing loss of left ear PTSD (post-traumatic stress disorder) Depression with anxiety Kidney stones Surgical History History of cystoscopy History of ear surgery Family History Maternal Uncle Substance use disorder Mother Mental health disorder Social History Household Members: Spouse and Children Housing: Condominium Are you a primary wound care nurse to a significant other at home: No Do you presently have visiting nurse or other home services: No Alcohol intake: current Alcohol intake frequency: a few times a week Patient Tobacco Use Status: Former Tobacco user e-Cigarette/Vaping Use: Currently Using Second Hand Smoke Exposure: No Substance Use Type: Painkillers service: No Current occupational status: employed Current occupation: [employer] Current occupational exposures/hazards: Yes Sexual orientation: Straight/Heterosexual Gender identity: Female Cognitive needs: No Hearing needs: Yes (bilateral hearing aids) Vision needs: No Female Reproductive History Menstrual Age of Menarche: 12 Review of Systems Const All systems reviewed & are unremarkable except as noted in HPI and below Physical Exam Vital Signs: Last Vital Signs Temp 98.1 F 12/24/23 09:15 Pulse 76 12/24/23 09:15 BP 120/80 12/24/23 09:15 Pulse Ox 98 12/24/23 09:15 Oxygen Delivery Method Room Air 12/24/23 09:15 Const General: cooperative, healthy appearing, comfortable and no acute distress Orientation/consciousness: patient oriented x3 Limitations: no limitations HEENT Head: Yes normal to inspection Ears: hearing grossly normal bilaterally, external ears normal and TM's normal bilaterally General nose exam: Normal external nose present, Normal nares present and No nasal discharge present Face and sinus: Yes normal facial exam and Yes sinuses nontender Mouth: Normal oral and palatal mucosa present and moist mucous membranes Throat: Yes tonsils normal, Yes uvula midline and Yes posterior oropharynx abnormal (Erythema) Eyes General: appearance normal, both eyes and all related structures Neck Neck: Yes normal visual inspection Resp Effort & Inspection: normal respiratory effort, able to speak in complete sentences, Actively coughing, no respiratory distress, not tachypneic, no tripod positioning and no use of accessory muscles Auscultation: clear to auscultation bilaterally Cardio Jugular venous distension: no JVD Rate: regular rate Rhythm: regular rhythm Heart sounds: S1 normal heart sound present, S2 normal heart sound present, no click, no gallops, no murmurs and no rubs Skin General skin exam: no rashes or lesions noted, elasticity normal and turgor normal Neuro General: patient oriented x3 Extrem General: Yes normal to inspection and Yes no clubbing, cyanosis or edema Assessment & Plan Assessment & Plan (1) URI (upper respiratory infection): Code(s): J06.9 - Acute upper respiratory infection, unspecified Qualifiers: URI type: unspecified URI Qualified Code(s): J06.9 - Acute upper respiratory infection, unspecified Plan: Viral swab obtained to rule out Covid based on symptoms. Advised mask wearing while symptomatic and quarantine per current CDC guidelines. Reviewed at home support methods including hydration, humidification, vix vapor rub, sinus rinse. Discussed treatment with antiviral therapy for covid with paxlovid including appropriate use and side effects, and need to start medication within 5 day of symptom onset, preferably within 48 hours of symptom onset. Patient wishes to decline paxlovid. Advised follow up with worsening symptoms such as dyspnea at rest, which would require emergent evaluation. Plan See above for full details and plan. Orders: Orders SARS-CoV2/FLU/RSV Today J06.9 - Acute upper respiratory infection, unspecified Coding Level of Care Code Est Pt Level 3 (12742) Diagnoses Upper respiratory tract infection, unspecified type J06.9 URI type: unspecified URI
[2023-12-24 09:15] VITALS: BP 120/80; PULSE 76; TEMP 36.7; O2SAT 98
== END 2023-12-24 09:39 | disposition home or self-care (01) ==
PROVIDERS: PCP Nurse Practitioner Family; Visit Provider Registered Nurse
DX: J06.9 Acute upper respiratory infection, unspecified (principal)

== ENCOUNTER 2023-12-24 08:55 | Outpatient (REF) | payer OTHER, SELFPAY ==
[2023-12-24 15:21] LABS: Influenza A PCR NEGATIVE (Negative); Influenza B PCR NEGATIVE (Negative); Resp Syncy Virus RNA Qual PCR NEGATIVE (Negative); SARS COV2 PCR INHOUSE NEGATIVE (Negative)
== END 2023-12-24 08:56 | disposition home or self-care (01) ==
LOC: HO.LNP 08:55
PROVIDERS: PCP Nurse Practitioner Family; Visit Provider Registered Nurse
DX: J02.9 Acute pharyngitis, unspecified (principal); J06.9 Acute upper respiratory infection, unspecified; R05.9 Cough, unspecified
CPT/HCPCS: 0241U; 99212

== ENCOUNTER 2024-04-21 09:20 | Outpatient (AMB) | payer OTHER, SELFPAY ==
[2024-04-21 09:26] VITALS: BP 118/70; PULSE 72; TEMP 36.8; O2SAT 98; BMI 21.7
--- NOTE | 2024-04-21 09:26 | A.OFFPC_ITS ---
Vital Signs 04/21/24 09:26 Height 5 ft 1 in Weight 115 lb BMI 21.7 BP 118/70 Blood Pressure Location Lt brachial Position Sitting Pulse 72 Pulse Source Pulse Oximeter Temp 98.2 F Temp Source Oral Pulse Oximetry (%) 98 Oxygen Delivery Method Room Air Intake Visit Reasons: Annual PE/overdue Allergies amoxicillin [AMOXICILLIN] Allergy (Unknown, Verified 04/21/24 09:46) HIVES Penicillins [PENICILLINS] Allergy (Unknown, Verified 04/21/24 09:46) HIVES Sulfa (Sulfonamide Antibiotics) Adverse Reaction (Unknown, Verified 04/21/24 0 9:46) vomiting cymbalta Adverse Reaction (Severe, Uncoded 04/21/24 09:46) Hallucinations Medication List - Last Reconciled 04/21/24 by JOSE G Lui-HUGO multivitamin (Daily Multi-Vitamin tablet) 1 tab PO DAILY Tobacco use date assessed: 04/21/24 Dental Screening Dental Screen Date: 04/21/24 Did you have a dental visit in the last 12 months?: Yes Did you have a dental problem in the last 6 months where you did not have access to dental care?: No Was dental information given to patient?: Patient has dentist HPI Annual PE/overdue HPI Details History of Present Illness The patient is a 43-year-old female presenting for evaluation and management of anxiety and depression. She reports experiencing symptoms of anxiety and depression, although details regarding the onset, duration, and severity were not discussed in this visit. The patient is actively seeking a therapist within her insurance network to address her mental health concerns. She denies any suicidal ideation or homicidal tendencies. Previous medical care or interventions for these conditions were not detailed in the conversation. There are no reports of exacerbating factors or alleviating interventions mentioned.. 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 Health Maintenance - Dental care: Discussed possibility of mammogram being up to date. No specific details on timing or results. - Mental health: Patient is in the proce ss of finding a therapist to manage anxiety and depression. Social History - Language: The patient is multilingual. - Insurance: Working on finding a therap ist covered by her insurance. Review of Systems - Cardiovascular: Denies issues - Respiratory: Denies SOB - Gastrointestinal: Denies blood in stoo l, constipation, diarrhea, nausea, vomiting. - Genitourinary: Denies urinary symptoms . Physical Exam General: Cooperative, healthy appearing, comfortable, no acute distress and well developed Orientation: Patient oriented x3 Limitations: No limitations Head: Normal to inspection Ears: Hearing grossly normal bilaterally Nose: Normal external nose present Face and sinus: Normal facial exam Eyes: Appearance normal, both eyes and all related structures Neck: Normal visual inspection and Yes full ROM Respiratory: Normal respiratory effort and able to speak in complete sentences. Clear to auscultation bilaterally Cardiovascular: Regular rate and rhythm. Normal S1 and S2 GI: Normal to inspection. Soft to palpation and nontender Skin: No rashes or lesions noted Neuro: Patient oriented x3 Extremities: Normal to inspection Results Plan 1. Anxiety The patient is experiencing anxiety and is seeking a therapist for proper management. It is important to find a therapist who accepts her insurance for coverage. No medications or other interventions were discussed. 2. Depression The patient reports depression. She is in the process of engaging with mental health services, specifically through a therapist. Current symptoms do not include suicidal or homicidal thoughts. The discussion did not cover specific pharmacological interventions. Discussion Notes During the visit, I discussed with the patient the current state of her anxiety and depression. She is actively working to engage therapy services appropriate for her insurance coverage to address these conditions. I acknowledged her denial of suicidal or homicidal ideation as a significant positive aspect, indicating some stability in her mental health. However, her symptoms of anxiety and depression warrant further exploration and management through therapy. No immediate pharmacological interventions were pursued during this visit. Follow- up and therapy compliance may be essential for effective management. Patient Instructions - Follow up with securing a therapist wi thin the network for ongoing management of anxiety and depression. - Monitor mental health symptoms and see k immediate help if thoughts of self- harm occur. - Keep track of any changes in symptoms or new symptoms and discuss them during the next visit. COUNTS INCLUDE 234 BEDS AT THE [facility] Medical History Breast pain, right Breast tenderness in female Fibroid Pelvic pain Right ovarian cyst Angiolipoma of kidney History of kidney stones Hearing loss of left ear PTSD (post-traumatic stress disorder) Depression with anxiety Kidney stones Surgical History History of cystoscopy History of ear surgery Family History Maternal Uncle Substance use disorder Mother Mental health disorder Social History Household Members: Spouse and Children Housing: Condominium Are you a primary regular senior care provider to a significant other at home: No Do you presently have visiting nurse or other home services: No Alcohol intake: current Alcohol intake frequency: a few times a week Patient Tobacco Use Status: Former Tobacco user e-Cigarette/Vaping Use: Currently Using Second Hand Smoke Exposure: No Substance Use Type: Painkillers service: No Current occupational status: employed Current occupation: [employer] Current occupational exposures/hazards: Yes Sexual orientation: Straight/Heterosexual Gender identity: Female Cognitive needs: No Hearing needs: Yes (bilateral hearing aids) Vision needs: No Female Reproductive History Menstrual Age of Menarche: 12 Questionnaire PHQ-9 Over the last 2 weeks, how often have you been bothered by any of the following problems? 1. Little interest or pleasure in doing things: several days 60262 - PHQ-9 Billing: Patient declined-do not bill Source: Developed by Drs. Nadeem Parham, Latesha Eaton, Doc Green and colleagues, with an educational azul from [employer]. Thrive Questionnaire Date Thrive assessed: 04/21/24 I am a: Patient What is your living situation today?: I have a steady place to live Within the past 12 months, did the food you bought not last and you didn't have the money to get more?: I choose not to answer this question Within the past 12 months, did you worry whether your food would run out before you got money to buy more?: I choose not to answer this question Do you have trouble paying for medicines?: I choose not to answer this question Do you have trouble getting transportation to medical appointments?: I choose not to answer this question Do you have trouble paying your heating and electricity bill?: I choose not to answer this question Do you have trouble taking care of your child, family member or friend?: I choose not to answer this question Do you have trouble with day-to-day activities such as bathing, preparing meals, shopping, managing finances, etc.?: I choose not to answer this question Are you currently unemployed and looking for a job?: I choose not to answer this question Are you interested in more education?: I choose not to answer this question Please select the resources that you would like help with: None Currently or been in a relationship where the following occur: I choose not to answer THRIVE Score: 0 AUDIT C Alcohol Use Questionnaire (AUDIT-C) 1. How often do you have a drink containing alcohol?: 2-4 times a month 2. How many drinks containing alcohol do you have on a typical day when you are drinking?: 3 or 4 3. How often do you have six or more drinks on one occasion?: Never Total Score: 3 Score Reviewed/Action Taken: Yes MATHIEU-7 AMB Questionnaire MATHIEU-7 Date MATHIEU - 7 assessed: 04/21/24 Feeling nervous, anxious, or on edge: 3 = Nearly every day Not being able to stop or control worryin = Several days Worrying too much about different things: 1 = Several days Trouble relaxin = Nearly every day Being so restless that it is hard to sit still: 1 = Several days Becoming easily annoyed or irritable: 1 = Several days Feeling afraid as if something awful might happen: 1 = Several days Total MATHIEU-7 score (0-4 normal; 5-9 mild; 10-14 moderate; 15-21 severe): 11 Source: Developed by Drs. Nadeem Parham, Latesha Eaton, Doc Green and colleagues, with an educational azul from [employer]. MATHIEU-7 Assessment Billing MATHIEU-7 Assessment Tool: MATHIEU-7 Assessment 73462 (denies any si or hi) Physical exam (Primary Care) Vital Signs: Last Vital Signs Temp 98.2 F 04/21/24 09:26 Pulse 72 04/21/24 09:26 BP 118/70 04/21/24 09:26 Pulse Ox 98 04/21/24 09:26 Oxygen Delivery Method Room Air 04/21/24 09:26 BMI result Body Mass Index 21.7 Tobacco/Smoking Status: Tobacco use Status Tobacco use date assessed 04/21/24 04/21/24 09:31 Patient Tobacco Use Status Former Tobacco user 04/21/24 09:31 e-Cigarette/Vaping Use Currently Using 04/21/24 09:31 Thrive Assessment: Date of Thrive Assessment Date Thrive assessed 02/24/25 02/24/25 09:31 Currently or been in a relationship where the following occur: I choose not to answer Coding Level of Care Code Est Pt Prev Care 40-64y(00567) Diagnoses Physical exam Z00.00 Additional Codes MATHIEU-7 Assessment Billing - MATHIEU-7 Assessment Tool: MATHIEU-7 Assessment 62177 ([id number]) Assessment & Plan Assessment & Plan (1) Physical exam: Code(s): Z00.00 - Encounter for general adult medical examination without abnormal findings Category: Medical Plan . Orders: Orders UA CC w/rflx Micro + Cult Today Z00.00 - Encounter for general adult medical examination without abnormal findings Lipid Panel Today Z00.00 - Encounter for general adult medical examination without abnormal findings Complete Blood Count Auto Diff Today Z00.00 - Encounter for general adult medical examination without abnormal findings Comprehensive Mousie. Panel Fast Today Z00.00 - Encounter for general adult medical examination without abnormal findings TSH reflex Free T4 Today Z00.00 - Encounter for general adult medical examination without abnormal findings
--- OUTSIDE RECORDS SUMMARY | 2024-04-21 10:00 | XMS_ITS | Clinical Summary ---
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 Depressive disorder, not els ewhere classified 04/04/2006 DX:Depressive disorder, not elsewhere classified Pyelonephritis, unspecified 05/06/2006 DX:P yelonephritis, unspecified Cholesteatoma, unspecified 05/06/2006 DX:Ch olesteatoma, unspecified; COMMENT: bilateral, resected left deaf, right ear with hearin aid Obsessive-compulsive persona lity disorder ([facility]) 05/06/2006 DX:Obsessive-compulsive pers onality disorder (HCC) Anxiety state, unspecified 04/04/2006 DX:An xiety state, unspecified Kidney stones DX:Kidney stones Blood type B- 04/2019 DX:Blood type B- History of opioid abuse ([facility]) 04/04/2006 DX:History of opioid abuse ([facility]); COMMENT: oxycontin and percocet; was on Suboxone for tx, stopped in 2013 Covid-19 03/01/2020 DX:COVID-19; COM MENT: Tested positive 02/03/20 Family History Medical History Relation Name Comments Other: alive and well Father Diabetes Maternal Grandfather Hypertension Mother CABG Paternal Grandfather Diabetes Paternal Grandfather Relation Name Status Comments Father Maternal Grandfather Mother Paternal Grandfather Social History Tobacco Use Types Packs/Day Years Used Date Smoking Tobacco: Former Cigarettes Smokeless Tobacco: Former Quit: 02/26/2015 Alcohol Use Standard Drinks/Week Comments No 0 (1 standard drink = 0.6 oz pur e alcohol) Comments Unknown Sex and Gender Information Value Date Recorded Sex Assigned at Not on file Legal Sex Female 9:22 AM EST Gender Identity Not on file Sexual Orientation Not on file Obstetrics History Plan of Treatment Health Maintenance Due Date Last Done Comments Breast Cancer Screening 1980 Cervical Cancer Screening: Pap Smear 2001 COVID-19 Vaccine (2023- season) 2023 Influenza Vaccine (#1) 2023 03/01/2009, 2009 DTaP,Tdap,and Td Vaccines (10 - Td or Tdap) 05/13/2029 05/14/2019, 08/15/2016, 01/20/2014, Additional history exists IPV Vaccines Completed 02/07/2005, 02/1984, 07/27/1982, Additional history exists MMR Vaccines Completed 02/07/2005, 02/1992, 04/26/1982 Hepatitis B Vaccines Completed 03/10/2005, 02/08/2005, 06/28/2000, Additional history exists HIB Vaccines Aged Out No longer eligi ble based on patient's age to complete this topic HPV Vaccines Aged Out No longer eligi ble based on patient's age to complete this topic Hepatitis A Vaccines Aged Out No long er eligible based on patient's age to complete this topic Meningococcal ACWY Vaccine Aged Out N o longer eligible based on patient's age to complete this topic Meningococcal B Vacine Aged Out No lo nger eligible based on patient's age to complete this topic Pneumococcal Vaccine: Pediatrics (0 to 5 Years) and At-Risk Patients (6 to 64 Years) Aged Out No longer eligible based on patient's age to complete this topic RSV Immunization Patients Under 20 months Aged Out No longer eligible based on patient's age to complete this topic Varicella Vaccines Aged Out No longer eligible based on patient's age to complete this topic Care Teams Instrument Engineer Relationship Specialty Start Date End Date Corrie Chaves MD [address] [place] [address] [facility] - General 05/17/09
== END 2024-04-21 09:46 | disposition home or self-care (01) ==
PROVIDERS: PCP Nurse Practitioner Family; Visit Provider Nurse Practitioner Family
DX: Z00.00 Encounter for general adult medical examination without abnormal findings (principal)

== ENCOUNTER → 2024-04-21 09:20 | Outpatient (BNVA) | payer OTHER, SELFPAY | PROVIDERS: PCP Nurse Practitioner Family; Visit Provider Nurse Practitioner Family | DX: Z00.00 Encounter for general adult medical examination without abnormal findings (principal) | CPT/HCPCS: 96127; 99396 ==

== ENCOUNTER 2024-05-12 08:50 | Outpatient (REF) | payer OTHER, SELFPAY ==
[2024-05-12 10:23] LABS: MANUAL DIFF FLAG NO
[2024-05-12 10:38] LABS: Basophils Percent Auto 0.5 % (0-2); Eosinophils Absolute Auto 0.1 X10*3/uL (0.0-0.4); Eosinophils Percent Auto 1.8 % (0-4); Hematocrit 40.1 % (37.0-47.0); Hemoglobin 13.7 g/dl (12.0-16.0); Imm Gran Abs Auto 0.01 X10*3/uL (0.00-0.03); Imm Gran Pct Auto 0.2 % (0.0-0.4); Lymphocytes Absolute Auto 1.6 X10*3/uL (1.2-4.9); Lymphocytes Percent Auto 28.8 % (20-40); Mean Corpuscular HGB Conc 34.2 g/dl (31.0-35.0); Mean Corpuscular Hemoglobin 31.6 pg (27.0-33.0); Mean Corpuscular Volume 92.6 fL (80.0-98.0); Mean Platelet Volume 10.3 fL (9.4-12.3); Monocytes Absolute Auto 0.6 X10*3/uL (0.1-1.2); Monocytes Percent Auto 10.2 % (2-11); Neutrophils Absolute Auto 3.2 x10*3/uL (2.0-8.3); Neutrophils Percent Auto 58.5 % (45-73); Platelet Count 240 X10*3/uL (160-400); Red Blood Count 4.33 X10*6/uL (4.20-5.50); Red Cell Distribution Width 11.9 % (11.0-16.0); White Blood Count 5.5 X10*3/uL (4.8-10.8)
[2024-05-12 10:53] LABS: Appearance Urine Cloudy; Color Urine Yellow; Glucose Urine UA Negative (Negative); Leukocyte Esterase Urine Moderate (2+) (Negative); Nitrite Urine Positive (Negative); PH 6.5 (5.0-9.0); Specific Gravity - Urine 1.015 (1.005-1.025); UMIC TRIGGER UACC YES; Urine Blood Trace (Negative); Urine Ketones Negative (Negative); Urine Protein Negative (Neg-Trace)
[2024-05-12 11:00] LABS: Bacteria Urine 4+ (None Seen); Hyaline Casts Urine 0-2 /LPF (0-2); RBC Urine 0-2 /HPF (0-2); UACC Culture Trigger YES; WBC Urine 21-50 /HPF (0-5)
[2024-05-12 12:19] LABS: Alanine Aminotransferase 12 U/L (0-31); Albumin Level 4.2 g/dL (3.5-5.0); Alkaline Phosphatase 40 U/L (39-117); Anion Gap 10 (12-20); Aspartate Amino Transferase 19 U/L (5-31); Bilirubin Total 0.5 mg/dL (0.0-1.0); Blood Urea Nitrogen 11 mg/dL (9-16); Carbon Dioxide 24 mmol/L (22-29); Chloride 110 mmol/L (96-108); Cholesterol 177 mg/dL (<200); Estimated Glomerular Filt Rate > 60; Glucose Fasting 92 mg/dL (60-99); HDL Cholesterol 60 mg/dL (>40); LDL Cholesterol Calculated 92 mg/dL (<100); Potassium 3.8 mmol/L (3.3-5.1); Sodium 140 mmol/L (135-145); TSH reflex Free T4 0.85 uIU/mL (0.32-4.0); Total Protein 7.3 g/dL (6.5-8.0); Triglycerides 128 mg/dL (<150)
== END 2024-05-12 08:51 | disposition home or self-care (01) ==
LOC: HO.HMGCLDS 08:50
PROVIDERS: PCP Nurse Practitioner Family; Visit Provider Nurse Practitioner Family
DX: Z00.00 Encounter for general adult medical examination without abnormal findings (principal)
CPT/HCPCS: 36415; 80053; 80061; 81001; 84443; 85025; 87086; 87088; 87186

== ENCOUNTER 2024-08-07 10:00 | Outpatient (REF) | payer OTHER, SELFPAY ==
[2024-08-07 14:02] LABS: Bacterial Vaginosis PCR NEGATIVE (Negative); Candida Group PCR NOT DETECTED (Not Detect); Candida glab krusei PCR NOT DETECTED (Not Detect); Trichomonas vaginalis PCR NOT DETECTED (Not Detect)
== END 2024-08-07 10:01 | disposition home or self-care (01) ==
LOC: HO.LAB 10:00
PROVIDERS: PCP Nurse Practitioner Family; Visit Provider Advanced Practice Midwife
DX: Z01.411 Encounter for gynecological examination (general) (routine) with abnormal findings (principal); R10.2 Pelvic and perineal pain; D21.9 Benign neoplasm of connective and other soft tissue, unspecified; N98.9 Complication associated with artificial fertilization, unspecified
CPT/HCPCS: 81515; 99212; 99396; 99459

== ENCOUNTER 2024-08-07 10:00 | Outpatient (AMB) | payer OTHER, SELFPAY ==
[2024-08-07 10:04] VITALS: BP 94/60
--- NOTE | 2024-08-07 10:04 | MHC.OFFVIS ---
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 annual exam Lot Attendant Required: No Information Interpreted: clinical only (vu) Allergies amoxicillin [AMOXICILLIN] Allergy (Unknown, Verified 08/07/24 10:07) HIVES Penicillins [PENICILLINS] Allergy (Unknown, Verified 08/07/24 10:07) HIVES Sulfa (Sulfonamide Antibiotics) Adverse Reaction (Unknown, Verified 08/07/24 10:07) vomiting cymbalta Adverse Reaction (Severe, Uncoded 08/07/24 10:07) Hallucinations Medication List - Last Reconciled 08/07/24 by Julieth Simpson LPN multivitamin (Daily Multi-Vitamin tablet) 1 tab PO DAILY Is last menstrual period known: Yes Last menstrual period: 08/02/24 Post menopausal: No Patient : No Do you need a note to return to daycare/school/sports/work: No HPI Comments Details: She is a premenopausal woman presenting for annual examination. Doing well with web designer developer concerns: PMS symptoms pelvic pressure and bloating and mood changes with irritability. Regular monthly menses not heavy this month, occasional painful and heavy. Had preferred not to take control in the past. Currently not is sexually active, longterm partner. She denies vaginal itching or irritation. History of fibroids and adenomyosis. She tries to eat healthy and stays active with exercise-walks. Denies family history of breast, ovarian or colon cancer. Last pap smear 2021, negative. Mammogram: 2023. [facility] Medical History (Updated 08/07/24 @ 10:36 by Genia Mendez CNM) Pelvic pressure in female Breast pain, right Breast tenderness in female Fibroid Pelvic pain Right ovarian cyst Angiolipoma of kidney History of kidney stones Hearing loss of left ear PTSD (post-traumatic stress disorder) Depression with anxiety Kidney stones Surgical History History of cystoscopy History of ear surgery Family History Maternal Uncle Substance use disorder Mother Mental health disorder Social History Household Members: Spouse and Children Housing: Condominium Are you a primary wound care technician to a significant other at home: No Do you presently have visiting nurse or other home services: No Alcohol intake: current Alcohol intake frequency: a few times a week Patient Tobacco Use Status: Former Tobacco user e-Cigarette/Vaping Use: Currently Using Second Hand Smoke Exposure: No Substance Use Type: Painkillers service: No Current occupational status: employed Current occupation: [employer] Current occupational exposures/hazards: Yes Sexual orientation: Straight/Heterosexual Gender identity: Female Cognitive needs: No Hearing needs: Yes (bilateral hearing aids) Vision needs: No Female Reproductive History Menstrual Age of Menarche: 12 Date of last menstrual period: 08/02/24 control method: none Total pregnancies: 5 Full term: 2 Number of Living Children: 2 Ab induced: 1 Ab spontaneous: 2 Date of last pap smear: 06/23/21 Date of Mammogram: 10/02/23 Review of Systems Const All systems reviewed & are unremarkable except as noted in HPI and below Reports as per HPI Eyes Reports no additional complaints ENT Reports no additional complaints Card Reports no additional complaints Resp Reports no additional complaints GI Reports as per HPI and Reports no additional complaints Reports as per HPI Musc Reports no additional complaints Skin/Breast Reports as per HPI Neuro Reports no additional complaints Psych Reports no additional complaints Endo Reports no additional complaints Jose/Lymph Reports no additional complaints Aller/Immun Reports no additional complaints Physical Exam Vital Signs: Last Vital Signs BP 94/60 08/07/24 10:04 Const General: cooperative, healthy appearing, no acute distress, well developed and alert Orientation/consciousness: patient oriented x3 HEENT Head: Yes normal to inspection Eyes General: appearance normal, both eyes and all related structures Neck Neck: Yes normal visual inspection Thyroid: Thyroid normal Chest Chest palpation & inspection: normal inspection of the chest and other (no puckering, dimpling, peau de orange, retraction, discharge, masses) Breast/axilla inspection: normal inspection of the breasts Breast/axilla palpation: normal palpation of the breasts Resp Effort & Inspection: normal respiratory effort GI Inspection: Yes normal to inspection Palpation (GI): Soft to palpation Rectal Exam - Female: deferred General: Yes bladder normal to palpation External Female Exam: normal external appearance and normal appearance of the urethra Speculum Exam - Vagina: normal appearance of the vagina, normal palpation and normal vaginal discharge Speculum Exam - Cervix: normal appearance of the cervix and normal palpation Bimanual exam- vagina & uterus: normal bimanual exam, normal palpation, uterine size normal, bladder normal to palpation, normal palpation and non-tender Bimanual Exam- Adnexa, other: no masses Skin General skin exam: no rashes or lesions noted Rashes: no rashes Neuro General: patient oriented x3 Cognition (Neuro): normal cognition Extrem General: Yes normal to inspection Psych Attitude: cooperative Thought process: Normal thought process present Assessment & Plan Assessment & Plan (1) Fibroid: Code(s): D21.9 - Benign neoplasm of connective and other soft tissue, unspecified Category: Medical Plan: Follow up pending pelvic ultrasound. (2) Pelvic pressure in female: Code(s): R10.2 - Pelvic and perineal pain Category: Medical Plan: GC chlamydia, BV panel obtained. Pelvic ultrasound ordered follow up pending results in person. The patient expressed understanding and agreement with the plan of care. All of her questions and concerns were addressed to the best of my ability. Total time I personally spent on visit and management today: ?15 minutes. Time spent included review of pertinent office notes in the electronic health record; review of laboratory and imaging results; review of personal family medical history; performing physical exam; discussing diagnosis and plan of care with the patient; documenting the encounter in the EMR. (3) Well woman exam with routine gynecological exam: Code(s): Z01.419 - Encounter for gynecological examination (general) (routine) without abnormal findings Category: Medical Plan: Discussed: Current recommendations for pap smears per ASCCP guidelines. Breast awareness and periodic breast exams. Mammogram yearly. Maintain a healthy lifestyle including a well balanced diet and routine exercise. Patient verbalizes understanding and agrees to the plan of care. She was given opportunity to ask questions and all questions were answered to the best of my ability. RTO in one year for annual web designer developer examination. This note is constructed using voice recognition software. While every effort has been made to ensure accuracy, datacap developer errors may have been included. Orders: Orders US pelvic and transvaginal Today D21.9 - Benign neoplasm of connective and other soft tissue, unspecified, R10.2 - Pelvic and perineal pain Bacterial Vaginosis Panel Today N89.8 - Other specified noninflammatory disorders of vagina Coding Level of Care Code Est Pt Level 2 (48695) Est Pt Prev Care 40-64y(08578) Diagnoses Fibroid D21.9 Pelvic pressure in female R10.2 Well woman exam with routine gynecological exam Z01.419
--- OUTSIDE RECORDS SUMMARY | 2024-08-07 11:20 | XMS_ITS | Clinical Summary ---
Author Organization [facility] Address [address] [place] [address] Care Team Providers Care Surg Rn Name Role Phone Corrie Chaves MD Primary Care Provider [phone] Surgical History Surgery Date Site/Laterality Comments OTHER SURGICAL HISTORY PROCEDURE: [place] REVJ MASTOIDECTOMY RSLTG MODF RAD MSTDC OTHER SURGICAL HISTORY PROCEDURE: [place] UNLISTED PROCEDURE MIDDLE EAR; COMMENT: myringotomy tubes [...] with hearin aid Obsessive-compulsive persona lity disorder ([facility] V24, [facility] V28) 05/06/2006 DX:Obsessive-compu lsive personality disorder (HCC) Anxiety state, unspecified 04/04/2006 DX:An xiety state, unspecified Kidney stones DX:Kidney stones Blood type B- 04/2019 DX:Blood type B- History of opioid abuse (CMS /HCC V24, [facility] V28) 04/04/2006 DX:History of opioid abuse ( [facility]); COMMENT: oxycontin and percocet; was on Suboxone [...] Cancer Screening: Pap Smear 2001 COVID-19 Vaccine ( season) 2023 Influenza Vaccine (Season Ended) 2024 03/01/2009, 03/01/2009 DTaP,Tdap,and Td Vaccines (10 - Td or [...] age to complete this topic Meningococcal B Vaccine Aged Out No l onger eligible based on patient's age to complete [...] age to complete this topic Care Teams Surg Rn Relationship Specialty Start Date End Date Corrie Chaves MD [address] [place] [address] [facility] - General 05/17/09
== END 2024-08-07 10:39 | disposition home or self-care (01) ==
LOC: HO.HWS 10:01
PROVIDERS: PCP Nurse Practitioner Family; Visit Provider Advanced Practice Midwife
DX: D21.9 Benign neoplasm of connective and other soft tissue, unspecified (principal); R10.2 Pelvic and perineal pain; Z01.419 Encounter for gynecological examination (general) (routine) without abnormal findings
CPT/HCPCS: 99212; 99396; 99459

== ENCOUNTER 2024-08-12 13:51 | Outpatient (REF) | payer OTHER, SELFPAY ==
--- NOTE | ~2024-08-12 | US_ITS ---
EXAMINATION: US PELVIS CLINICAL INFORMATION: R10.2 - Pelvic and perineal pain COMPARISON: Ultrasound July 27, [address] March 01, 2021 TECHNIQUE: Ultrasound of the pelvis is performed using both transabdominal and transvaginal transducers along with Doppler. Transvaginal imaging is performed due to inadequate visualization transabdominally. FINDINGS: Uterus: The uterus is anteflexed and measures 9.5 x 4.9 x 6.1 cm. It has a coarse echotexture, especially posteriorly. The posterior uterine body appears thickened and anterior body. The double wall endometrial thickness is 8 mm. The uterus is smooth in contour. No visible fibroid. Adnexa: Both ovaries are visualized. There is normal color flow to the adnexa. There is no ovarian torsion. There is no pelvic ascites or fluid collection. There are linear slightly curved echogenic areas in both adnexa with posterior shadowing. Right ovary measures 2.7 x 2.0 x 2.0 cm. Multiple follicles are present. Left ovary measures 3.9 x 2.2 x 2.2 cm. Dominant follicle is visible. US/US pelvic and transvaginal IMPRESSION: Adenomyosis and/or ill-defined leiomyoma is in the posterior myometrium of the uterine body. Slightly curvilinear echogenic areas in both adnexa with posterior acoustic shadowing of uncertain etiology or significance. Electronically signed by: Chandan Rankin MD 08/12/2024 05:58 PM EDT
--- OUTSIDE RECORDS SUMMARY | 2024-08-12 15:51 | XMS_ITS | Clinical Summary ---
Author Organization [facility] Address [address] [place] [address] Care Team Providers Care Data Sme Name Role Phone Corrie Chaves MD Primary Care Provider [phone] Surgical History Surgery Date Site/Laterality Comments OTHER SURGICAL HISTORY PROCEDURE: [place] REVJ MASTOIDECTOMY RSLTG MODF RAD MSTDC OTHER SURGICAL HISTORY PROCEDURE: [place] UNLISTED PROCEDURE MIDDLE EAR; COMMENT: myringotomy tubes [...] with hearin aid Obsessive-compulsive persona lity disorder ([facility] V24, [facility] V28) 05/06/2006 DX:Obsessive-compu lsive personality disorder (HCC) Anxiety state, unspecified 04/04/2006 DX:An xiety state, unspecified Kidney stones DX:Kidney stones Blood type B- 04/2019 DX:Blood type B- History of opioid abuse ([facility] /[facility] V24, [facility] V28) 04/04/2006 DX:History of opioid abuse ( [facility]); COMMENT: oxycontin and percocet; was on Suboxone [...] age to complete this topic Care Teams Data Sme Relationship Specialty Start Date End Date Corrie Chaves MD [address] [place] [address] [facility] - General 05/17/09
== END 2024-08-12 13:52 | disposition home or self-care (01) ==
LOC: HO.US 13:51
PROVIDERS: PCP Nurse Practitioner Family; Visit Provider Advanced Practice Midwife
DX: R10.2 Pelvic and perineal pain (principal); D21.9 Benign neoplasm of connective and other soft tissue, unspecified
CPT/HCPCS: 76830; 76856

== ENCOUNTER → 2024-08-12 13:53 | Outpatient (BNV) | payer OTHER, SELFPAY | PROVIDERS: PCP Nurse Practitioner Family; Visit Provider Radiology Diagnostic Radiology | DX: R10.2 Pelvic and perineal pain (principal) | CPT/HCPCS: 76830; 76856 ==

== ENCOUNTER 2024-09-25 14:46 | Outpatient (AMB) | payer OTHER, SELFPAY ==
--- NOTE | 2024-09-25 14:49 | A.OFFVIS_ITS ---
Vital Signs 09/25/24 14:52 Height 5 ft 1 in Weight 116 lb BMI 21.9 BP 98/60 Blood Pressure Location Rt brachial Position Sitting Intake Visit Reasons: Us Follow up Intake Note: Go over u/s results. Information Interpreted: non-clinical & clinical Instrumentation Technician: Instrumentation Technician Present Accompanied by: Self / Same As Patient Allergies amoxicillin (AMOXICILLIN) Allergy (Unknown, Verified 08/07/24 10:07) HIVES Penicillins (PENICILLINS) Allergy (Unknown, Verified 08/07/24 10:07) HIVES Sulfa (Sulfonamide Antibiotics) Adverse Reaction (Unknown, Verified 08/07/24 10:07) vomiting cymbalta Adverse Reaction (Severe, Uncoded 08/07/24 10:07) Hallucinations Medication List - Last Reconciled 09/25/24 by Julieth Simpson LPN levocetirizine (Xyzal) 5 mg PO DAILY multivitamin (Daily Multi-Vitamin tablet) 1 tab PO DAILY Is last menstrual period known: Yes (mod red flow and then today dropped out in shower golf size clot) Last menstrual period: 09/23/24 Post menopausal: No Patient : No Do you need a note to return to daycare/school/sports/work: No HPI Comments Details: Patient is here today for a follow up pelvic ultrasound, history of fibroids. She reports menses are regular proximally 5 days the present cycle she had passed a blood clot which is unusual for her. She also is concerned she has premenstrual symptoms of mood changes, irritability, anxiety and would like to have treatment. She is not interested at this time with control. Current everyday vaping with nicotine. Thinking about quitting. [facility] Medical History (Updated 09/25/24 @ 15:40 by Genia Mendez CNM) PMS (premenstrual syndrome) Abnormal ultrasound Pelvic pressure in female Breast pain, right Breast tenderness in female Fibroid Pelvic pain Right ovarian cyst Angiolipoma of kidney History of kidney stones Hearing loss of left ear PTSD (post-traumatic stress disorder) Depression with anxiety Kidney stones Surgical History History of cystoscopy History of ear surgery Family History Maternal Uncle Substance use disorder Mother Mental health disorder Social History Household Members: Spouse and Children Housing: Condominium Are you a primary child care provider to a significant other at home: No Do you presently have visiting nurse or other home services: No Alcohol intake: current Alcohol intake frequency: a few times a week Patient Tobacco Use Status: Former Tobacco user e-Cigarette/Vaping Use: Currently Using Second Hand Smoke Exposure: No Substance Use Type: Painkillers service: No Current occupational status: employed Current occupation: [employer] Current occupational exposures/hazards: Yes Sexual orientation: Straight/Heterosexual Gender identity: Female Cognitive needs: No Hearing needs: Yes (bilateral hearing aids) Vision needs: No Female Reproductive History Menstrual Age of Menarche: 12 Date of last menstrual period: 09/23/24 control method: none (following on diallo for fertility) Review of Systems Const All systems reviewed & are unremarkable except as noted in HPI and below Endo Reports no additional complaints Physical Exam Vital Signs: Last Vital Signs BP 98/60 09/25/24 14:52 BMI result Body Mass Index 21.9 Const General: cooperative, healthy appearing and no acute distress Psych Appearance: well kempt Attitude: cooperative Thought process: Normal thought process present Results Reviewed Results Reviewed: [address] [address] Ultrasound Report Signed Patient: Taryn Anton MR#: [id number] : 1980 Acct:[id number] Age/Sex: 43 / F ADM Date: 08/12/24 Loc: HO.US Attending Dr: Genia Mendez CNM Ordering Physician: Genia Mendez CNM Date of Service: 08/12/24 Procedure(s): US pelvic and transvaginal Accession Number(s): [id number] cc: Gee Mena-BC; Genia Mendez CNM~ EXAMINATION: US PELVIS CLINICAL INFORMATION: R10.2 - Pelvic and perineal pain COMPARISON: Ultrasound July 27, [address] March 01, 2021 TECHNIQUE: Ultrasound of the pelvis is performed using both transabdominal and transvaginal transducers along with Doppler. Transvaginal imaging is performed due to inadequate visualization transabdominally. FINDINGS: Uterus: The uterus is anteflexed and measures 9.5 x 4.9 x 6.1 cm. It has a coarse echotexture, especially posteriorly. The posterior uterine body appears thickened and anterior body. The double wall endometrial thickness is 8 mm. The uterus is smooth in contour. No visible fibroid. Adnexa: Both ovaries are visualized. There is normal color flow to the adnexa. There is no ovarian torsion. There is no pelvic ascites or fluid collection. There are linear slightly curved echogenic areas in both adnexa with posterior shadowing. Right ovary measures 2.7 x 2.0 x 2.0 cm. Multiple follicles are present. Left ovary measures 3.9 x 2.2 x 2.2 cm. Dominant follicle is visible. US/US pelvic and transvaginal IMPRESSION: Adenomyosis and/or ill-defined leiomyoma is in the posterior myometrium of the uterine body. Slightly curvilinear echogenic areas in both adnexa with posterior acoustic shadowing of uncertain etiology or significance. Electronically signed by: Cahndan Rankin MD 08/12/2024 05:58 PM EDT RP Dictated By: Chandan Rankin MD Signed By: <Electronically signed by Chandan Rankin MD in OV> 08/12/24 1758 DD/ 1402 TD/TT: 08/12/24 1421 Cyber Transport Systems Specialist: Assessment & Plan Assessment & Plan (1) Abnormal ultrasound: Code(s): R93.89 - Abnormal findings on diagnostic imaging of other specified body structures Category: Medical Plan: Discussed ultrasound findings, adenomyosis and or ill-defined leiomyoma in the posterior myometrium of the uterine body. Slightly curvilinear echogenic areas of both adnexa with posterior acoustic shadowing of uncertain etiology or significance. Plan repeat ultrasound in 3 months with follow up office visit evaluation. Monitor menstrual cycles, report any unscheduled bleeding, bleeding episodes <24 days apart or heavy/prolonged menstrual bleeding. Call the office for a follow up for any concerns. (2) PMS (premenstrual syndrome): Code(s): N94.3 - Premenstrual tension syndrome Category: Medical Plan Counseled regarding PMS treatment options including SSRI's, control, herbal supplement-Chasteberry. She is open to researching her options and will reach out to me in the office to let me know what she decides between the SSRI and herbal supplement. The patient expressed understanding and agreement with the plan of care. All of her questions and concerns were addressed to the best of my ability. Follow up ultrasound and follow up PMS 2-3 months. The patient expressed understanding and agreement with the plan of care. All of her questions and concerns were addressed to the best of my ability. This note is constructed using voice recognition software. While every effort has been made to ensure accuracy, nutrition representative errors may have been included. Orders: Orders US pelvic and transvaginal 11/12/24 R93.89 - Abnormal findings on diagnostic imaging of other specified body structures Coding Level of Care Code Est Pt Level 3 (53788) Diagnoses Abnormal ultrasound R93.89 PMS (premenstrual syndrome) N94.3
--- OUTSIDE RECORDS SUMMARY | 2024-09-25 14:50 | XMS_ITS | Clinical Summary ---
Author Organization [employer] [facility] Address [address] [place] [address] Care Team Providers Care Mental Health Tech Name Role Phone Corrie Chaves MD Primary Care Provider [phone] Surgical History Surgery Date Site/Laterality Comments OTHER SURGICAL HISTORY PROCEDURE: [place] REVJ MASTOIDECTOMY RSLTG MODF RAD MSTDC OTHER SURGICAL HISTORY PROCEDURE: [place] UNLISTED PROCEDURE MIDDLE EAR; COMMENT: myringotomy tubes [...] with hearin aid Obsessive-compulsive persona lity disorder ([facility] V24, [facility] V28) 05/06/2006 DX:Obsessive-compu lsive personality disorder (HCC) Anxiety state, unspecified 04/04/2006 DX:An xiety state, unspecified Kidney stones DX:Kidney stones Blood type B- 04/2019 DX:Blood type B- History of opioid abuse (CMS /[facility] V24, CMS/[facility] V28) 04/04/2006 DX:History of opioid abuse ( [facility]); COMMENT: oxycontin and percocet; was on Suboxone [...] Smear 2001 COVID-19 Vaccine ( season) 2023 Depression Screening 02/27/2024 Influenza Vaccine (#1) 2024 03/01/2009, 2009 DTaP,Tdap,and Td Vaccines (10 - [...] 5 Years) and At-Risk Patients (6 to 49 Years) Aged Out No longer eligible based on patient's age to complete this topic RSV Immunization Patients Under 20 months Aged Out No longer eligible based on patient's age to complete this topic Varicella Vaccines Aged Out No longer eligible based on patient's age to complete this topic Care Teams Mental Health Tech Relationship Specialty Start Date End Date Corrie Chaves MD [address] [place] [address] PCP - General 05/17/09
[2024-09-25 14:52] VITALS: BP 98/60; BMI 21.9
== END 2024-09-25 15:38 | disposition home or self-care (01) ==
LOC: HO.HWS 14:46
PROVIDERS: PCP Nurse Practitioner Family; Visit Provider Advanced Practice Midwife
DX: R93.89 Abnormal findings on diagnostic imaging of other specified body structures (principal); N94.3 Premenstrual tension syndrome
CPT/HCPCS: 99213

== ENCOUNTER → 2024-09-25 14:46 | Outpatient (BNVA) | payer OTHER, SELFPAY | PROVIDERS: PCP Nurse Practitioner Family; Visit Provider Advanced Practice Midwife | DX: R93.89 Abnormal findings on diagnostic imaging of other specified body structures (principal); N94.3 Premenstrual tension syndrome | CPT/HCPCS: 99212 ==

== ENCOUNTER 2024-10-03 08:39 | Outpatient (REF) | payer OTHER, SELFPAY ==
--- OUTSIDE RECORDS SUMMARY | 2024-10-03 08:52 | XMS_ITS | Clinical Summary ---
Author Organization [employer] [facility] Address [address] [place] [address] Care Team Providers Care Preform Plate Maker Name Role Phone Corrie Chaves MD Primary Care Provider [phone] Surgical History Surgery Date Site/Laterality Comments OTHER SURGICAL HISTORY PROCEDURE: [place] REVJ MASTOIDECTOMY RSLTG MODF RAD MSTDC OTHER SURGICAL HISTORY PROCEDURE: [place] UNLISTED PROCEDURE MIDDLE EAR; COMMENT: myringotomy tubes [...] with hearin aid Obsessive-compulsive persona lity disorder ([facility] V24, CMS/[facility] V28) 05/06/2006 DX:Obsessive-compu lsive personality disorder (HCC) Anxiety state, unspecified 04/04/2006 DX:An xiety state, unspecified Kidney stones DX:Kidney stones Blood type B- 04/2019 DX:Blood type B- History of opioid abuse (CMS /HCC V24, CMS/[facility] V28) 04/04/2006 DX:History of opioid abuse ( [facility]); COMMENT: oxycontin and percocet; was on Suboxone [...] age to complete this topic Care Teams Preform Plate Maker Relationship Specialty Start Date End Date Corrie Chaves MD [address] [place] [address] PCP - General 05/17/09
== END 2024-10-03 08:40 | disposition home or self-care (01) ==
LOC: HO.MAMMO 08:39
PROVIDERS: PCP Nurse Practitioner Family; Visit Provider Nurse Practitioner Family
DX: Z12.31 Encounter for screening mammogram for malignant neoplasm of breast (principal)
CPT/HCPCS: 77063; 77067

== ENCOUNTER → 2024-10-03 08:45 | Outpatient (BNV) | payer OTHER, SELFPAY | PROVIDERS: PCP Nurse Practitioner Family; Visit Provider Internal Medicine | DX: Z12.31 Encounter for screening mammogram for malignant neoplasm of breast (principal) | CPT/HCPCS: 77063; 77067 ==

== ENCOUNTER 2024-10-28 15:28 | Outpatient (AMB) | payer OTHER, SELFPAY ==
[2024-10-28 15:36] VITALS: BP 138/90; PULSE 86; RESP 16; O2SAT 98; BMI 21.3
--- NOTE | 2024-10-28 15:36 | MHC.PC.OV ---
Vital Signs 10/28/24 15:36 Height 5 ft 1 in Weight 113 lb BMI 21.3 BP 138/90 H Blood Pressure Location Lt brachial Position Sitting Respiration 16 Pulse 86 Pulse Source Pulse Oximeter Pulse Oximetry (%) 98 Oxygen Delivery Method Room Air Intake Visit Reasons: 6 month f/u Song Plugger Required: No Accompanied by: Self / Same As Patient Allergies amoxicillin (AMOXICILLIN) Allergy (Unknown, Verified 10/28/24 15:42) HIVES Penicillins (PENICILLINS) Allergy (Unknown, Verified 10/28/24 15:42) HIVES Sulfa (Sulfonamide Antibiotics) Adverse Reaction (Unknown, Verified 10/28/24 15:42) vomiting cymbalta Adverse Reaction (Severe, Uncoded 08/07/24 10:07) Hallucinations Tobacco use date assessed: 04/21/24 Dental Screening Dental Screen Date: 04/21/24 HPI 6 month f/u HPI Details Chief Complaint The patient presents for follow-up on anxiety and depression management. History of Present Illness The patient is a 43-year-old female presenting with a follow-up visit for anxiety and depression management. Her anxiety and depression are reported to be fairly well controlled at this time. She reports experiencing slight hair thinning and moodiness, which she attributes to premenopausal symptoms. The patient has discussed her symptoms with her waiter/waitress cocktail lounge and considered starting fluoxetine twice a month. She also considered control but is hesitant due to her smoking habit. She is exploring nutritional or natural supplements as an alternative. Her blood pressure was noted to be slightly elevated during the visit, which may have been influenced by her rushing to the appointment. Typically, her blood pressure is low. A thyroid examination was conducted, revealing no nodules, and a thyroid-stimulating hormone (TSH) level recheck is planned. Social History - Smoking: The patient is a smoker, which influences her decision regarding control options. Health Maintenance - Thyroid-stimulating hormone (TSH) level recheck planned. Review of Systems - Psychiatric: Reports moodiness, anxiety, and depression well controlled. - Dermatological: Reports slight hair thinning. - Cardiovascular: Reports elevated blood pressure during visit, typically low. Physical Exam General: Cooperative, healthy appearing, comfortable, no acute distress and well developed Orientation: Patient oriented x3 Limitations: No limitations Head: Normal to inspection Ears: Hearing grossly normal bilaterally Nose: Normal external nose present Face and sinus: Normal facial exam Eyes: Appearance normal, both eyes and all related structures Neck: Normal visual inspection and Yes full ROM Respiratory: Normal respiratory effort and able to speak in complete sentences. Clear to auscultation bilaterally Cardiovascular: Regular rate and rhythm. Normal S1 and S2 GI: Normal to inspection. Soft to palpation and nontender Skin: No rashes or lesions noted Neuro: Patient oriented x3 Extremities: Normal to inspection Results 1. Anxiety The patient's anxiety is currently well controlled, and no changes to her current management plan were discussed. 2. Depression The patient's depression is currently well controlled, and no changes to her current management plan were discussed. 3. Premenopausal Symptoms The patient is considering fluoxetine twice a month for mood stabilization and has discussed this with her waiter/waitress cocktail lounge. She is hesitant to use control due to smoking and is exploring nutritional or natural supplements as alternatives. 4. Elevated Blood Pressure The patient's blood pressure was elevated during the visit, likely due to rushing, and is usually low. Discussion Notes I discussed with the patient her current management for anxiety and depression, which appears to be effective. We reviewed her premenopausal symptoms and the potential use of fluoxetine, as well as her concerns about control due to smoking. I will consult with colleagues regarding local providers for perimenopausal management. We also noted her elevated blood pressure, likely due to rushing, and plan to recheck her thyroid-stimulating hormone level. Patient Instructions - Continue current management for anxiety and depression. - Consider discussing fluoxetine use with your waiter/waitress cocktail lounge. - Explore nutritional or natural supplements for premenopausal symptoms. - Monitor blood pressure at home and report any significant changes. - Follow up for thyroid-stimulating hormone level recheck. [facility] Medical History (Updated 10/28/24 @ 16:21 by GILDA Lui) PMS (premenstrual syndrome) Abnormal ultrasound Pelvic pressure in female Breast pain, right Breast tenderness in female Fibroid Pelvic pain Right ovarian cyst Angiolipoma of kidney History of kidney stones Hearing loss of left ear PTSD (post-traumatic stress disorder) Depression with anxiety Kidney stones Surgical History History of cystoscopy History of ear surgery Family History Maternal Uncle Substance use disorder Mother Mental health disorder Social History Household Members: Spouse and Children Housing: Condominium Are you a primary after school caregiver to a significant other at home: No Do you presently have visiting nurse or other home services: No Alcohol intake: current Alcohol intake frequency: a few times a week Patient Tobacco Use Status: Former Tobacco user e-Cigarette/Vaping Use: Currently Using Second Hand Smoke Exposure: No Substance Use Type: Painkillers service: No Current occupational status: employed 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 2. Feeling down, depressed, or hopeless: not at all 3. Trouble falling or staying asleep, or sleeping too much: not at all 4. Feeling tired or having little energy: not at all 5. Poor appetite or overeating: not at all 6. Feeling bad about yourself - or that you are a failure or have let yourself or your family down: not at all 7. Trouble concentrating on things, such as reading the newspaper or watching television: not at all 8. Moving or speaking so slowly that other people could have noticed. Or the opposite - being so fidgety or restless that you have been moving around a lot more than usual: not at all 9. Thoughts that you would be better off or of hurting yourself in some way: not at all Source: Developed by Drs. Nadeem Parham, Latesha Eaton, Doc Green and colleagues, with an educational azul from [employer]. Thrive Questionnaire Date Thrive assessed: 04/21/24 I am a: Patient What is your living situation today?: I have a steady place to live Within the past 12 months, did the food you bought not last and you didn't have the money to get more?: I choose not to answer this question Within the past 12 months, did you worry whether your food would run out before you got money to buy more?: I choose not to answer this question Do you have trouble paying for medicines?: I choose not to answer this question Do you have trouble getting transportation to medical appointments?: I choose not to answer this question Do you have trouble paying your heating and electricity bill?: I choose not to answer this question Do you have trouble taking care of your child, family member or friend?: I choose not to answer this question Do you have trouble with day-to-day activities such as bathing, preparing meals, shopping, managing finances, etc.?: I choose not to answer this question Are you currently unemployed and looking for a job?: I choose not to answer this question Are you interested in more education?: I choose not to answer this question Please select the resources that you would like help with: None Currently or been in a relationship where the following occur: I choose not to answer THRIVE Score: 0 MATHIEU-7 AMB Questionnaire MATHIEU-7 Date MATHIEU - 7 assessed: 04/21/24 Source: Developed by Drs. Nadeem Parham, Latesha Eaton, Doc Green and colleagues, with an educational azul from [employer]. Physical exam (Primary Care) Vital Signs: Last Vital Signs Pulse 86 10/28/24 15:36 Resp 16 10/28/24 15:36 BP 138/90 H 10/28/24 15:36 Pulse Ox 98 10/28/24 15:36 Oxygen Delivery Method Room Air 10/28/24 15:36 BMI result Body Mass Index 21.3 Tobacco/Smoking Status: Tobacco use Status Tobacco use date assessed 04/21/24 10/28/24 15:39 Patient Tobacco Use Status Former Tobacco user 10/28/24 15:39 e-Cigarette/Vaping Use Currently Using 10/28/24 15:39 Thrive Assessment: Date of Thrive Assessment Date Thrive assessed 04/21/24 10/28/24 15:39 Currently or been in a relationship where the following occur: I choose not to answer Coding Level of Care Code Est Pt Level 3 (24434) Diagnoses HTN (hypertension) I10 Depression with anxiety F41.8 Perimenopausal N95.1 Assessment & Plan Assessment & Plan (1) HTN (hypertension): Code(s): I10 - Essential (primary) hypertension Category: Medical (2) Depression with anxiety: Code(s): F41.8 - Other specified anxiety disorders Category: Medical (3) Perimenopausal: Code(s): N95.1 - Menopausal and female climacteric states Category: Medical Plan . Orders: Orders Comprehensive Husser. Panel Fast Today I10 - Essential (primary) hypertension TSH reflex Free T4 Today I10 - Essential (primary) hypertension UA CC w/rflx Micro + Cult Today I10 - Essential (primary) hypertension Lipid Panel Today I10 - Essential (primary) hypertension Complete Blood Count Auto Diff Today I10 - Essential (primary) hypertension
--- OUTSIDE RECORDS SUMMARY | 2024-10-28 16:29 | XMS_ITS | Clinical Summary ---
Author Organization [employer] [facility] Address [address] [place] [address] Care Team Providers Care Improvement Auditor Name Role Phone Corrie Chaves MD Primary Care Provider [phone] Surgical History Surgery Date Site/Laterality Comments OTHER SURGICAL HISTORY PROCEDURE: [place] REVJ MASTOIDECTOMY RSLTG MODF RAD MSTDC OTHER SURGICAL HISTORY PROCEDURE: [place] UNLISTED PROCEDURE MIDDLE EAR; COMMENT: myringotomy tubes [...] with hearin aid Obsessive-compulsive persona lity disorder ([facility] V24, CMS/[facility] V28) 05/06/2006 DX:Obsessive-compu lsive personality disorder (HCC) Anxiety state, unspecified 04/04/2006 DX:An xiety state, unspecified Kidney stones DX:Kidney stones Blood type B- 04/2019 DX:Blood type B- History of opioid abuse (CMS /[facility] V24, CMS/[facility] V28) 04/04/2006 DX:History of opioid abuse ( [facility]); COMMENT: oxycontin and percocet; was [...] age to complete this topic Care Teams Improvement Auditor Relationship Specialty Start Date End Date Corrie Chaves MD [address] [place] [address] PCP - General 05/17/09
== END 2024-10-28 16:50 | disposition home or self-care (01) ==
LOC: HO.HMCC 15:29
PROVIDERS: PCP Nurse Practitioner Family; Visit Provider Nurse Practitioner Family
DX: I10 Essential (primary) hypertension (principal); F41.8 Other specified anxiety disorders; N95.1 Menopausal and female climacteric states

== ENCOUNTER → 2024-10-28 15:28 | Outpatient (BNVA) | payer OTHER, SELFPAY | PROVIDERS: PCP Nurse Practitioner Family; Visit Provider Nurse Practitioner Family | DX: I10 Essential (primary) hypertension (principal); F41.9 Anxiety disorder, unspecified; F32.A Depression, unspecified; F41.8 Other specified anxiety disorders; N95.1 Menopausal and female climacteric states | CPT/HCPCS: 99212 ==

== ENCOUNTER 2024-10-31 10:30 | Outpatient (REF) | payer OTHER, SELFPAY ==
--- OUTSIDE RECORDS SUMMARY | 2024-10-31 11:31 | XMS_ITS | Clinical Summary ---
Author Organization [employer] [facility] Address [address] [place] [address] Care Team Providers Care Community Cultural Development Officer Name Role Phone Corrie Chaves MD Primary Care Provider [phone] Surgical History Surgery Date Site/Laterality Comments OTHER SURGICAL HISTORY PROCEDURE: [place] REVJ MASTOIDECTOMY RSLTG MODF RAD MSTDC OTHER SURGICAL HISTORY PROCEDURE: [place] UNLISTED PROCEDURE MIDDLE EAR; COMMENT: myringotomy tubes [...] with hearin aid Obsessive-compulsive persona lity disorder ([facility] V24, CMS/[facility] V28) 05/06/2006 DX:Obsessive-compu lsive personality disorder (HCC) Anxiety state, unspecified 04/04/2006 DX:An xiety state, unspecified Kidney stones DX:Kidney stones Blood type B- 04/2019 DX:Blood type B- History of opioid abuse (CMS /[facility] V24, CMS/[facility] V28) 04/04/2006 DX:History of opioid abuse ( [facility]); COMMENT: oxycontin and percocet; was [...] 1980 Cervical Cancer Screening: Pap Smear 2001 Depression Screening 02/27/2024 COVID-19 Vaccine ( season) 2024 Influenza Vaccine (#1) 2024 03/01/2009, 2009 DTaP,Tdap,and [...] age to complete this topic Care Teams Community Cultural Development Officer Relationship Specialty Start Date End Date Corrie Chaves MD [address] [place] [address] PCP - General 05/17/09
[2024-10-31 13:12] LABS: MANUAL DIFF FLAG NO
[2024-10-31 13:22] LABS: Appearance Urine Clear; Glucose Urine UA Negative (Negative); PH 7.0 (5.0-9.0); Specific Gravity - Urine 1.010 (1.005-1.025)
[2024-10-31 13:27] LABS: Hematocrit 36.2 % (37.0-47.0); Hemoglobin 12.1 g/dl (12.0-16.0); Imm Gran Abs Auto 0.03 X10*3/uL (0.00-0.03); Imm Gran Pct Auto 0.4 % (0.0-0.4); Lymphocytes Absolute Auto 1.4 X10*3/uL (1.2-4.9); Mean Corpuscular HGB Conc 33.4 g/dl (31.0-35.0); Mean Corpuscular Hemoglobin 30.9 pg (27.0-33.0); Mean Corpuscular Volume 92.6 fL (80.0-98.0); NRBC Abs Auto 0.000 X10*3/uL (0.0-0.012); NRBC Pct Auto 0.0 /100WBC (0.0-0.2); Platelet Count 261 X10*3/uL (160-400); Red Blood Count 3.91 X10*6/uL (4.20-5.50); White Blood Count 7.1 X10*3/uL (4.8-10.8)
[2024-10-31 14:11] LABS: Alanine Aminotransferase 14 U/L (0-31); Albumin Level 4.3 g/dL (3.5-5.0); Alkaline Phosphatase 48 U/L (39-117); Anion Gap 11 (12-20); Aspartate Amino Transferase 23 U/L (5-31); Blood Urea Nitrogen 13 mg/dL (9-16); Calcium 8.9 mg/dL (8.4-10.2); Carbon Dioxide 24 mmol/L (22-29); Chloride 104 mmol/L (96-108); Cholesterol 183 mg/dL (<200); Estimated Glomerular Filt Rate > 60; HDL Cholesterol 72 mg/dL (>40); Potassium 4.3 mmol/L (3.3-5.1); Sodium 135 mmol/L (135-145); Total Protein 6.8 g/dL (6.5-8.0); Triglycerides 69 mg/dL (<150)
== END 2024-10-31 10:31 | disposition home or self-care (01) ==
LOC: HO.HMGCLDS 10:30
PROVIDERS: PCP Nurse Practitioner Family; Visit Provider Nurse Practitioner Family
DX: I10 Essential (primary) hypertension (principal)
CPT/HCPCS: 36415; 80053; 80061; 81003; 84443; 85025

== ENCOUNTER 2024-11-11 12:52 | Outpatient (REF) | payer OTHER, SELFPAY ==
--- NOTE | ~2024-11-11 | US_ITS ---
CLINICAL HISTORY: R93.89 - Abnormal findings on diagnostic imaging of other specified body... --- Additional Notes or Special Instructions: repeat US pelvis transabdominal and transvaginal Comparison: US/SR - US PELVIS TRANSABDOMINAL AND TRANSVAGINAL - 08/12/24 14:01 EDT Findings: Transabdominal scanning performed for overall anatomy. Transvaginal scanning performed for additional detail. Anteverted uterus is 9.1 cm length. 1.7 x 1.6 x 1.6 cm submucosal fibroid within the posterior uterine body (previously 3.0 x 2.4 x 3.3 cm). 1.2 x 0.9 x 1.0 cm intramural fibroid within the posterior uterine body (previously 1.5 x 1.5 x 2.2 cm). There are numerous nabothian cysts within the cervix. Endometrium 12 mm thickness. Right ovary 2.1 x 1.4 x 1.8 cm. Left ovary 3.9 x 1.9 x 2 cm. There are small follicles within the bilateral ovaries. There is no suspicious ovarian mass. Normal color Doppler of both ovaries. No free fluid. IMPRESSION: 1. There are 2 small uterine fibroids, the larger measuring 1.7 cm in size. 2. Mild thickening of the endometrium. This document has been electronically signed by: Renita Washington MD on 11/12/2024 12:25:23
--- OUTSIDE RECORDS SUMMARY | 2024-11-11 16:49 | XMS_ITS | Clinical Summary ---
Author Organization [employer] [facility] Address [address] [place] [address] Care Team Providers Care Brand Recorder Name Role Phone Corrie Chaves MD Primary Care Provider [phone] Surgical History Surgery Date Site/Laterality Comments OTHER SURGICAL HISTORY PROCEDURE: [place] REVJ MASTOIDECTOMY RSLTG MODF RAD MSTDC OTHER SURGICAL HISTORY PROCEDURE: [place] UNLISTED PROCEDURE MIDDLE EAR; COMMENT: myringotomy tubes [...] with hearin aid Obsessive-compulsive persona lity disorder ([facility] V24, [facility] V28) 05/06/2006 DX:Obsessive-compu lsive personality disorder (HCC) Anxiety state, unspecified 04/04/2006 DX:An xiety state, unspecified Kidney stones DX:Kidney stones Blood type B- 04/2019 DX:Blood type B- History of opioid abuse (CMS /[facility] V24, [facility] V28) 04/04/2006 DX:History of opioid abuse ( [facility]); COMMENT: oxycontin and percocet; was on Suboxone [...] age to complete this topic Care Teams Brand Recorder Relationship Specialty Start Date End Date Corrie Chaves MD [address] [place] [address] PCP - General 05/17/09
== END 2024-11-11 12:53 | disposition home or self-care (01) ==
LOC: HO.US 12:52
PROVIDERS: PCP Nurse Practitioner Family; Visit Provider Advanced Practice Midwife
DX: R93.89 Abnormal findings on diagnostic imaging of other specified body structures (principal)
CPT/HCPCS: 76830; 76856

== ENCOUNTER → 2024-11-11 12:54 | Outpatient (BNV) | payer OTHER, SELFPAY | PROVIDERS: PCP Nurse Practitioner Family; Visit Provider Radiology Diagnostic Radiology | DX: D25.9 Leiomyoma of uterus, unspecified (principal) | CPT/HCPCS: 76830; 76856 ==

== ENCOUNTER 2024-11-12 10:46 | Outpatient (REF) | payer OTHER, SELFPAY ==
--- NOTE | ~2024-11-12 | US_ITS ---
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 COMPARISON: Comparison is made with the prior examination dated 06/01/2023. FINDINGS: Right kidney: The right kidney measures 12.5 x 3.9 x 5.2 cm. Renal parenchymal echotexture and thickness are normal. Again seen is an echogenic lesion at the lower pole which measures 7 x 7 x 10 mm on the current study (previously 5 x 6 x 4 mm). There is no hydronephrosis or renal calculi. Left Kidney: The left kidney measures 11.4 x 5.3 x 6.0 cm. Renal parenchymal echotexture and thickness are normal. There are no masses. There is no hydronephrosis or renal calculi. US/US renal BI IMPRESSION: Echogenic lesion at the lower pole of the right kidney which is larger than on the prior study. No fat-containing mass was seen on CT dated 03/01/2021. Renal protocol CT or MRI is recommended. Electronically signed by: Nadeem Lundy MD 11/12/2024 11:15 AM EDT
--- OUTSIDE RECORDS SUMMARY | 2024-11-12 13:37 | XMS_ITS | Clinical Summary ---
Author Organization [employer] [facility] Address [address] [place] [address] Care Team Providers Care Bowl Sander Name Role Phone Corrie Chaves MD Primary Care Provider Surgical History Surgery Date Site/Laterality Comments OTHER SURGICAL HISTORY PROCEDURE: [place] REVJ MASTOIDECTOMY RSLTG MODF RAD MSTDC OTHER SURGICAL HISTORY PROCEDURE: [place] UNLISTED PROCEDURE MIDDLE EAR; COMMENT: myringotomy tubes [...] with hearin aid Obsessive-compulsive persona lity disorder ([facility] V24, CMS/[facility] V28) 05/06/2006 DX:Obsessive-compu lsive personality disorder (HCC) Anxiety state, unspecified 04/04/2006 DX:An xiety state, unspecified Kidney stones DX:Kidney stones Blood type B- 04/2019 DX:Blood type B- History of opioid abuse (CMS /[facility] V24, CMS/[facility] V28) 04/04/2006 DX:History of opioid abuse ( [facility]); COMMENT: oxycontin and percocet; was [...] age to complete this topic Care Teams Bowl Sander Relationship Specialty Start Date End Date Corrie Chaves MD [address] [place] [address] PCP - General 05/17/09
== END 2024-11-12 10:47 | disposition home or self-care (01) ==
LOC: HO.HMGCX 10:46
PROVIDERS: PCP Nurse Practitioner Family; Visit Provider Urology
DX: D17.71 Benign lipomatous neoplasm of kidney (principal)
CPT/HCPCS: 76775

== ENCOUNTER → 2024-11-12 10:47 | Outpatient (BNV) | payer OTHER, SELFPAY | PROVIDERS: PCP Nurse Practitioner Family; Visit Provider Radiology Diagnostic Radiology | DX: D17.71 Benign lipomatous neoplasm of kidney (principal) | CPT/HCPCS: 76775 ==

== ENCOUNTER 2024-11-20 08:47 | Outpatient (AMB) | payer OTHER, SELFPAY ==
--- NOTE | 2024-11-20 08:56 | MHC.OFFVIS ---
Intake Visit Reasons: 1y/US Intake Note: Patient is present for a 1yr/US 11/12 Renal US Urology Medication:none Antibiotic Allergy:amoxicillin, penicillin, sulfa Blood Thinner:none Client Account Representative Required: No Allergies amoxicillin (AMOXICILLIN) Allergy (Unknown, Verified 11/20/24 08:57) HIVES Penicillins (PENICILLINS) Allergy (Unknown, Verified 11/20/24 08:57) HIVES Sulfa (Sulfonamide Antibiotics) Adverse Reaction (Unknown, Verified 11/20/24 08:57) vomiting cymbalta Adverse Reaction (Severe, Uncoded 08/07/24 10:07) Hallucinations Medication List - Last Reconciled 11/20/24 by Syed Rushing MD levocetirizine (Xyzal) 5 mg PO DAILY multivitamin (Daily Multi-Vitamin tablet) 1 tab PO DAILY HPI Comments Details: 11/20/2024 Carina is being followed for h/o nephrolithiasis, chronic IC. History of Present Illness The patient has a history of nephrolithiasis, which is being monitored regularly. A recent renal ultrasound on 11/12/24 showed no new renal calculi. The patient is scheduled for further imaging to monitor the condition. An echogenic lesion in the right kidney, measuring 7 x 10 mm, was noted to have slightly increased in size from prior imaging. The lesion was previously suggested to be an angiomyolipoma, but further evaluation with an MRI is planned to rule out malignancy. The patient also has a diagnosis of chronic interstitial cystitis, managed primarily through dietary modifications. She underwent cystoscopy with hydrodistension on 07/04/2022. The patient experiences stress urinary incontinence, particularly with sneezing, coughing, or jumping. She manages these symptoms with the use of a pad and has been provided information on urethral bulking procedures as a potential treatment option. Results - Renal ultrasound on 11/12/24: No new renal calculi, echogenic lesion in the right kidney measuring 7 x 10 mm, slightly increased in size. Plan 1. Nephrolithiasis - Continue monitoring with regular imaging studies. 2. Echogenic Lesion In The Right Kidney - Plan for MRI in six months to further evaluate the lesion. 3. Chronic Interstitial Cystitis - Continue management with dietary modifications. 4. Stress Urinary Incontinence - Provided information on urethral bulking procedure as a treatment option. 11/19/2023--Taryn is here in follow-up. She has been treated for interstitial cystitis. 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 Repeat imaging May, right kidney angiomyolipoma stable. No renal calculi visualized. The patient states her bladder symptoms in regards to pain are stable she will get occasional urinary leakage. She is not interested in any medication at this time. 08/14/2022--Taryn is a 41-year-old female who presents to the office s/p cystoscopy hydrodistention. The patient underwent cystoscopy hydrodistention on 07/04/22. Cystoscopy findings----Bladder capacity 700 milliliters. Mild glomerulations on several quadrants of the bladder consistent with cystitis. I discussed with the patient that Interstitial cystitis is a chronic condition in which the lining of the bladder is inflamed and symptoms may include bladder pressure, burning with urination, urgency or pelvic pain. The exact cause for IC is not known, but likely factors that contribute would be factors that affect the protective lining of the bladder allowing urine to irritate the bladder wall. Contributing factors may include Recurrent UTI's, autoimmune reaction, heredity or allergy. Treatment includes lifestyle changes including diet modification, anti-spasm and anti-histamine medications. 06/21/22--Taryn is a 41-year-old female patient who presents to the office for nephrolithiasis follow-up. The patient was seen last by Dr. Biggs on 12/15/20. h/o of kidney stones. The patient is currently taking vitamin B6 100 mg daily and states she consumes adequate amount of water.She states she was in the ER in February 2021 for pain in the pelvis. She c/o's constant pelvic pain. I have reviewed the CT results at ED visit, 2mm Left kidney stone States having fibroids in the uterus and would be re-evaluated after 6 weeks with imaging. States having urinary leakage and occasional bladder pain. States having family history of renal lesion in mother. Evaluation today: blood: negative, leukocytes: negative. Abdomen US results reviewed?06/01/22-- Suggestive of 6 x 5 mm echogenic lesion in the lower pole of the right kidney and a 4 mm left kidney stone which was also visualized on the previous abdominal US--11/8/22. I have discussed echogenic lesion is suggestive of renal angiomyolipoma, will get MRI for further eval. Stone analysis--05-13-18--calcium oxalate- 50% and carbonate apatite- 50%. Plan:Pelvic Pain. Cystoscopy hydrodistension possible bladder biopsy discussed to be scheduled. Consent was obtained Right renal echogenic lesion. MRI abdomen prior was ordered. Follow-up in 4 months. [facility] Medical History PMS (premenstrual syndrome) Abnormal ultrasound Pelvic pressure in female Breast pain, right Breast tenderness in female Fibroid Pelvic pain Right ovarian cyst Angiolipoma of kidney History of kidney stones Hearing loss of left ear PTSD (post-traumatic stress disorder) Depression with anxiety Kidney stones Surgical History History of cystoscopy History of ear surgery Family History Maternal Uncle Substance use disorder Mother Mental health disorder Social History Household Members: Spouse and Children Housing: Condominium Are you a primary wound care specialist to a significant other at home: No Do you presently have visiting nurse or other home services: No Alcohol intake: current Alcohol intake frequency: a few times a week Patient Tobacco Use Status: Former Tobacco user e-Cigarette/Vaping Use: Currently Using Second Hand Smoke Exposure: No Substance Use Type: Painkillers service: No Current occupational status: employed Current occupation: [employer] Current occupational exposures/hazards: Yes Sexual orientation: Straight/Heterosexual Gender identity: Female Cognitive needs: No Hearing needs: Yes (bilateral hearing aids) Vision needs: No Female Reproductive History Menstrual Age of Menarche: 12 Review of Systems Const All systems reviewed & are unremarkable except as noted in HPI and below Reports no additional complaints Eyes Reports no additional complaints ENT Reports no additional complaints Card Reports no additional complaints Resp Reports no additional complaints GI Reports no additional complaints Reports as per HPI Musc Reports no additional complaints Skin/Breast Reports system reviewed and no additional complaints, except as documented Neuro Reports no additional complaints Psych Reports no additional complaints Endo Reports no additional complaints Jose/Lymph Reports no additional complaints Aller/Immun Reports no additional complaints Results AMB Urinalysis, Automated UA Leukoctes 0 Mary Kay/uL Last Edit by Lo Ritchie on 11/20/24 16:59 UA Nitrite Negative Last Edit by Crystal Ritchie on 11/20/24 16:59 UA Urobilinogen 3.5 mg/dL Last Edit by Crystal Ritchie on 11/20/24 16:59 UA Protein 15 mg/dL Last Edit by Crystal Ritchie on 11/20/24 16:59 UA pH 6.0 Last Edit by Crystal Ritchie on 11/20/24 16:59 UA Blood 0 Armand/uL Last Edit by Crystal Ritchie on 11/20/24 16:59 UA Specific Spring 1.030 Last Edit by Crystal Ritchie on 11/20/24 16:59 UA Ketone Negative Last Edit by Crystal Ritchie on 11/20/24 16:59 UA Bilirubin 0 mg/dL Last Edit by Crystal Ritchie on 11/20/24 16:59 UA Glucose 0 mg/dL Last Edit by Lo Ritchie on 11/20/24 16:59 Results Reviewed Results Reviewed: Date of Service: 11/12/24 Procedure(s): US renal BI Accession Number(s): [id number] cc: Syed Rushing MD; Gee Mena [facility]~ Reason for Exam: D17.71 - Benign lipomatous neoplasm of kidney EXAMINATION: US KIDNEY BILATERAL HISTORY: D17.71 - Benign lipomatous neoplasm of kidney TECHNIQUE: Real-time grayscale ultrasound imaging of the kidneys was performed and images were reviewed. COMPARISON: Comparison is made with the prior examination dated 06/01/2023. FINDINGS: Right kidney: The right kidney measures 12.5 x 3.9 x 5.2 cm. Renal parenchymal echotexture and thickness are normal. Again seen is an echogenic lesion at the lower pole which measures 7 x 7 x 10 mm on the current study (previously 5 x 6 x 4 mm). There is no hydronephrosis or renal calculi. Left Kidney: The left kidney measures 11.4 x 5.3 x 6.0 cm. Renal parenchymal echotexture and thickness are normal. There are no masses. There is no hydronephrosis or renal calculi. IMPRESSION: Echogenic lesion at the lower pole of the right kidney which is larger than on the prior study. No fat-containing mass was seen on CT dated 03/01/2021. Renal protocol CT or MRI is recommended. Date of Service: 06/01/23 EXAMINATION: US RETROPERITONEAL LIMITED (RENAL ONLY) CLINICAL INFORMATION: Personal history of urinary calculi. COMPARISON: Ultrasound abdomen complete 06/01/2022 and 01/03/2022. CT abdomen and pelvis 03/01/2021. TECHNIQUE: Real-time imaging of the kidneys. FINDINGS: RIGHT KIDNEY: 12.0 x 3.8 x 5.4 cm (SAG x AP x TRV). The kidney is normal in size, contour, and echogenicity. Renal cortical thickness is normal. No renal calculi or hydronephrosis. 6 mm well-circumscribed echogenic focus in the lower pole cortex, possibly a tiny angiomyolipoma or cortical calcification which is not visible on CT scan from 03/01/2021, but is stable in size when compared to abdominal ultrasound 06/01/2022. LEFT KIDNEY: 11.3 x 5.3 x 5.0 cm (SAG x AP x TRV). The kidney is normal in size, contour, and echogenicity. Renal cortical thickness is normal. No calculi or focal parenchymal lesions. No hydronephrosis. IMPRESSION: No visible nephrolithiasis. No hydronephrosis. Date of Service: 06/01/22 EXAMINATION: US ABDOMEN COMPLETE CLINICAL INFORMATION: Abdominal pain. COMPARISON: Ultrasound abdomen complete 01/03/2022. Renal ultrasound 11/23/2021. CT abdomen and pelvis 03/01/2021. TECHNIQUE: Real-time imaging of the abdominal viscera. FINDINGS: PANCREAS: Normal. ABDOMINAL AORTA: The proximal, mid, and distal segments are normal in caliber. INFERIOR VENA CAVA: Visualized portions are normal. LIVER: Normal. The liver is normal in size. The liver contour is normal. Parenchymal echogenicity is normal. No focal hepatic lesion. There is no intrahepatic biliary duct dilatation seen. GALLBLADDER: Normal. The gallbladder is physiologically distended without evidence of stones, sludge, polyps, wall thickening or pericholecystic fluid. COMMON BILE DUCT: Normal in caliber measuring 0.3 cm in diameter. RIGHT KIDNEY: 5 x 6 mm echogenic lesion in the lower pole. This was seen on prior ultrasounds and may be minimally increased in size. No definite corresponding abnormality is appreciated on CT scan. No hydronephrosis or renal calculi. The kidney measures 12.4 cm in maximum dimension. LEFT KIDNEY: 4 mm stone in the lower pole. No hydronephrosis or focal parenchymal lesions. The kidney measures 10.5 cm in maximum dimension. SPLEEN: Normal. The spleen measures 9.6 cm in maximum dimension. FREE FLUID: None. IMPRESSION: 6 x 5 mm echogenic lesion in the lower pole the right kidney. Appearance is suggestive of an AML and may be minimally increased in size. This finding is similar to previous ultrasounds but not seen by CT. Small left renal stone. Assessment & Plan Assessment & Plan (1) Interstitial cystitis: Code(s): N30.10 - Interstitial cystitis (chronic) without hematuria Category: Medical (2) History of kidney stones: Code(s): Z87.442 - Personal history of urinary calculi Category: Medical (3) Renal lesion: Code(s): N28.9 - Disorder of kidney and ureter, unspecified Category: Medical Orders: Orders AMB Urinalysis Automated Today N28.9 - Disorder of kidney and ureter, unspecified, N30.10 - Interstitial cystitis (chronic) without hematuria, R30.0 - Dysuria, R35.0 - Frequency of micturition, Z87.442 - Personal history of urinary calculi MR abdomen wo/w con 6 Months N28.9 - Disorder of kidney and ureter, unspecified Coding Diagnoses Interstitial cystitis N30.10 History of kidney stones Z87.442 Renal lesion N28.9
--- OUTSIDE RECORDS SUMMARY | 2024-11-20 09:25 | XMS_ITS | Clinical Summary ---
Author Organization [employer] [facility] Address [address] [place] [address] Care Team Providers Care Telephone Lines Repairer Name Role Phone Corrie Chaves MD Primary Care Provider [phone] Surgical History Surgery Date Site/Laterality Comments OTHER SURGICAL HISTORY PROCEDURE: [place] REVJ MASTOIDECTOMY RSLTG MODF RAD MSTDC OTHER SURGICAL HISTORY PROCEDURE: [place] UNLISTED PROCEDURE MIDDLE EAR; COMMENT: myringotomy tubes [...] with hearin aid Obsessive-compulsive persona lity disorder ([facility] V24, [facility] V28) 05/06/2006 DX:Obsessive-compu lsive personality disorder (HCC) Anxiety state, unspecified 04/04/2006 DX:An xiety state, unspecified Kidney stones DX:Kidney stones Blood type B- 04/2019 DX:Blood type B- History of opioid abuse ([facility] /[facility] V24, [facility] V28) 04/04/2006 DX:History [...] age to complete this topic Care Teams Telephone Lines Repairer Relationship Specialty Start Date End Date Corrie Chaves MD [address] [place] [address] PCP - General 05/17/09
== END 2024-11-20 09:33 | disposition home or self-care (01) ==
LOC: HO.HUSH 08:48
PROVIDERS: PCP Nurse Practitioner Family; Visit Provider Urology
DX: Z87.442 Personal history of urinary calculi (principal); N28.9 Disorder of kidney and ureter, unspecified; N30.10 Interstitial cystitis (chronic) without hematuria; R30.0 Dysuria; R35.0 Frequency of micturition

== ENCOUNTER → 2024-11-20 08:47 | Outpatient (BNVA) | payer OTHER, SELFPAY | PROVIDERS: PCP Nurse Practitioner Family; Visit Provider Urology | DX: N30.10 Interstitial cystitis (chronic) without hematuria (principal); Z87.442 Personal history of urinary calculi; N28.9 Disorder of kidney and ureter, unspecified; N39.3 Stress incontinence (female) (male) | CPT/HCPCS: 81003; 99212 ==

== ENCOUNTER 2024-11-27 12:50 | Outpatient (AMB) | payer OTHER, SELFPAY ==
--- NOTE | 2024-11-27 12:51 | A.OFFVIS_ITS ---
Vital Signs 11/27/24 12:53 Height 5 ft 1 in Weight 113 lb BMI 21.3 Intake Visit Reasons: PMS/US follow up Visual Display Manager: Visual Display Manager Present Allergies amoxicillin (AMOXICILLIN) Allergy (Unknown, Verified 11/27/24 12:51) HIVES Penicillins (PENICILLINS) Allergy (Unknown, Verified 11/27/24 12:51) HIVES Sulfa (Sulfonamide Antibiotics) Adverse Reaction (Unknown, Verified 11/27/24 12:51) vomiting cymbalta Adverse Reaction (Severe, Uncoded 08/07/24 10:07) Hallucinations Is last menstrual period known: Yes Last menstrual period: 11/12/24 HPI Comments Details: Patient is here for a follow up pelvic ultrasound and to discuss her decision making for PMS treatment. She reports a history of anxiety, depression and PTSD. She also is concerned about hair loss and moodiness. She is not interested in hormonal use and prefers a natural route of treatment. Last visit we discussed the use of Chasteberry supplement for PMS symptoms, she has not started them. [facility] Medical History PMS (premenstrual syndrome) Abnormal ultrasound Pelvic pressure in female Breast pain, right Breast tenderness in female Fibroid Pelvic pain Right ovarian cyst Angiolipoma of kidney History of kidney stones Hearing loss of left ear PTSD (post-traumatic stress disorder) Depression with anxiety Kidney stones Surgical History History of cystoscopy History of ear surgery Family History Maternal Uncle Substance use disorder Mother Mental health disorder Social History Household Members: Spouse and Children Housing: Condominium Are you a primary foster care social worker to a significant other at home: No Do you presently have visiting nurse or other home services: No Alcohol intake: current Alcohol intake frequency: a few times a week Patient Tobacco Use Status: Former Tobacco user e-Cigarette/Vaping Use: Currently Using Second Hand Smoke Exposure: No Substance Use Type: Painkillers service: No Current occupational status: employed Current occupation: [employer] Current occupational exposures/hazards: Yes Sexual orientation: Straight/Heterosexual Gender identity: Female Cognitive needs: No Hearing needs: Yes (bilateral hearing aids) Vision needs: No Female Reproductive History Menstrual Age of Menarche: 12 Date of last menstrual period: 11/12/24 Review of Systems Const All systems reviewed & are unremarkable except as noted in HPI and below Endo Reports no additional complaints Physical Exam Vital Signs: BMI result Body Mass Index 21.3 Const General: cooperative, healthy appearing and no acute distress Psych Appearance: well kempt Attitude: cooperative Thought process: Normal thought process present Results Reviewed Results Reviewed: [address] [address] Ultrasound Report Signed Patient: Taryn Anton MR#: [id number] : 1980 Acct:[id number] Age/Sex: 43 / F ADM Date: 11/11/24 Loc: HO.US Attending Dr: Genia Mendez CNM Ordering Physician: Genia Mendez CNM Date of Service: 11/11/24 Procedure(s): US pelvic and transvaginal Accession Number(s): [id number] cc: Gee Mena [employer]ITAL [employer] INSTRUCTOR-; Genia Mendez CNM~ Reason for Exam: R93.89 - Abnormal findings on diagnostic imaging of other specified body... CLINICAL HISTORY: R93.89 - Abnormal findings on diagnostic imaging of other specified body... --- Additional Notes or Special Instructions: repeat US pelvis transabdominal and transvaginal Comparison: US/SR - US PELVIS TRANSABDOMINAL AND TRANSVAGINAL - 08/12/24 14:01 EDT Findings: Transabdominal scanning performed for overall anatomy. Transvaginal scanning performed for additional detail. Anteverted uterus is 9.1 cm length. 1.7 x 1.6 x 1.6 cm submucosal fibroid within the posterior uterine body (previously 3.0 x 2.4 x 3.3 cm). 1.2 x 0.9 x 1.0 cm intramural fibroid within the posterior uterine body (previously 1.5 x 1.5 x 2.2 cm). There are numerous nabothian cysts within the cervix. Endometrium 12 mm thickness. Right ovary 2.1 x 1.4 x 1.8 cm. Left ovary 3.9 x 1.9 x 2 cm. There are small follicles within the bilateral ovaries. There is no suspicious ovarian mass. Normal color Doppler of both ovaries. No free fluid. IMPRESSION: 1. There are 2 small uterine fibroids, the larger measuring 1.7 cm in size. 2. Mild thickening of the endometrium. This document has been electronically signed by: Renita Washington MD on 11/12/2024 12:25:23 Dictated By: Renita Washington MD Signed By: <Electronically signed by Renita Washington MD in OV> 11/12/24 1226 Assessment & Plan Assessment & Plan (1) Fibroid: Code(s): D21.9 - Benign neoplasm of connective and other soft tissue, unspecified Category: Medical Plan: Discussed: US findings- 1. There are 2 small uterine fibroids, the larger measuring 1.7 cm in size. 2. Mild thickening of the endometrium. Fibroids remained stable. No indication for follow up at this time unless she reports any future pelvic pain, persistent bloating or pressure and any abnormal bleeding patterns. The patient expressed understanding and agreement with the plan of care. All of her questions and concerns were addressed to the best of my ability. (2) PMS (premenstrual syndrome): Code(s): N94.3 - Premenstrual tension syndrome Category: Medical Plan: PMS concerns discussed. Considering starting Chasteberry supplement. Follow up p.r.n., she can call in several months. Asbestos Surveyor annual exam in July of 2025. The patient expressed understanding and agreement with the plan of care. All of her questions and concerns were addressed to the best of my ability. This note is constructed using voice recognition software. While every effort has been made to ensure accuracy, medical laboratory assistant errors may have been included. (3) Perimenopausal: Code(s): N95.1 - Menopausal and female climacteric states Category: Medical Plan Reviewed concerns for her PMS and hair loss, role of hormones, hair loss remedies, consider dermatology referral, functional health medicine, and perimenopausal information including website resources. The patient expressed understanding and agreement with the plan of care. All of her questions and concerns were addressed to the best of my ability. This note is constructed using voice recognition software. While every effort has been made to ensure accuracy, medical laboratory assistant errors may have been included. Coding Level of Care Code Est Pt Level 3 (19773) Diagnoses Fibroid D21.9 PMS (premenstrual syndrome) N94.3 Perimenopausal N95.1
[2024-11-27 12:53] VITALS: BMI 21.3
--- OUTSIDE RECORDS SUMMARY | 2024-11-27 14:18 | XMS_ITS | Clinical Summary ---
Author Organization [employer] [facility] Address [address] [place] [address] Care Team Providers Care Material Loader Name Role Phone Corrie Chaves MD Primary Care Provider [phone] Surgical History Surgery Date Site/Laterality Comments OTHER SURGICAL HISTORY PROCEDURE: [place] REVJ MASTOIDECTOMY RSLTG MODF RAD MSTDC OTHER SURGICAL HISTORY PROCEDURE: [place] UNLISTED PROCEDURE MIDDLE EAR; COMMENT: myringotomy tubes [...] disorder ([facility] V24, CMS/[facility] V28) 05/06/2006 DX:Obsessive-compu lsive personality disorder (HCC) Anxiety state, unspecified 04/04/2006 DX:An xiety state, unspecified Kidney stones DX:Kidney stones Blood type B- 04/2019 DX:Blood type B- History of opioid abuse (CMS /HCC V24, CMS/[facility] V28) 04/04/2006 DX:History of opioid abuse ( [facility]); COMMENT: oxycontin and percocet; was on [...] 1980 Cervical Cancer Screening: Pap Smear 2001 HPV Vaccines (1 - 3-dose SCDM series) 12/30/2007 Depression Screening 02/27/2024 COVID-19 Vaccine (2023- season) 2024 Influenza Vaccine (#1) 2024 03/01/2009, 2009 DTaP,Tdap,and Td Vaccines (10 - Td or Tdap) 05/13/2029 05/14/2019, 08/15/2016, 01/20/2014, Additional history exists RSV Immunization Adult Patients (1 - 1-dose 75+ series) 12/30/2055 IPV Vaccines Completed 02/07/2005, 02/1984, 07/27/1982, Additional [...] age to complete this topic Care Teams Material Loader Relationship Specialty Start Date End Date Corrie Chaves MD [address] [place] [address] PCP - General 05/17/09
== END 2024-11-27 14:52 | disposition home or self-care (01) ==
LOC: HO.HWS 12:50
PROVIDERS: PCP Nurse Practitioner Family; Visit Provider Advanced Practice Midwife
DX: D21.9 Benign neoplasm of connective and other soft tissue, unspecified (principal); N94.3 Premenstrual tension syndrome; N95.1 Menopausal and female climacteric states
CPT/HCPCS: 99213

== ENCOUNTER → 2024-11-27 12:50 | Outpatient (BNVA) | payer OTHER, SELFPAY | PROVIDERS: PCP Nurse Practitioner Family; Visit Provider Advanced Practice Midwife | DX: D21.9 Benign neoplasm of connective and other soft tissue, unspecified (principal); N94.3 Premenstrual tension syndrome; N95.1 Menopausal and female climacteric states | CPT/HCPCS: 99212 ==